=== PATIENT | female | born 2000 | race Caucasian/White ===

== ENCOUNTER 2022-09-25 10:11 | Emergency (ER) | payer OTHER, SELFPAY ==
--- NOTE | ~2022-09-25 | XR_ITS ---
EXAMINATION: XR chest 2V DATE: 09/25/2022 10:46 INDICATION: Anterior chest pain TECHNIQUE: PA and lateral views of the chest were obtained. COMPARISON: Chest radiograph dated 09/02/2022 FINDINGS: The lungs remain clear with no focal airspace opacities, pulmonary edema, pleural effusion or pneumot horax. The cardiomediastinal silhouette is normal. Mild thoracic spondylosis with mild anterior wedgi ng of a midthoracic vertebral body. IMPRESSION: 1. No acute cardiopulmonary disease. Reviewed, dictated and finalized at location A. [employer]
--- NOTE | 2022-09-25 10:22 | ECG_ITS ---
Measurements Intervals [place] Rate: 56 P: 46 DE: 137 QRS: 49 QRSD: 85 T: 21 QT: 386 QTc: 376 Interpretive Statements SINUS BRADYCARDIA WITH SINUS ARRHYTHMIA WITHIN NORMAL LIMITS NO PREVIOUS ECG AVAILABLE FOR COMPARISON Electronically Signed On 09-25-2022 15:30:03 RUBY SOFTWARE DEVELOPER by Mahesh Bhatia M.D.
[2022-09-25 10:25] VITALS: BP 128/79; PULSE 57; RESP 16; TEMP 36.4; O2SAT 100
[2022-09-25 10:27] VITALS: PULSE 64
[2022-09-25 11:48] VITALS: O2SAT 99
[2022-09-25 11:49] VITALS: BP 144/63; PULSE 61; RESP 19; O2SAT 100
[2022-09-25 12:00] LABS: Basophils Absolute Auto 0.1 K/mm3 (0.0-0.1); Basophils Percent Auto 0.5 % (0.2-1.2); Eosinophils Absolute Auto 0.5 K/mm3 (0-0.3); Eosinophils Percent Auto 4.1 % (0-4.4); Hematocrit 44.6 % (37.0-47.0); Hemoglobin 14.6 g/dL (12.0-15.0); Immature Granulocyte Absolute 0.05 K/mm3 (0.00-0.031); Immature Granulocyte Percent A 0.4 % (0-0.5); Lymphocytes Absolute Auto 1.75 K/mm3 (0.9-3.2); Lymphocytes Percent Auto 13.1 % (18.3-44.2); Mean Corpuscular HGB Conc 32.7 g/dl (32-36); Mean Corpuscular Volume 85.4 fl (80-100); Mean Platelet Volume 9.4 fl (7.4-10.4); Monocytes Absolute Auto 0.7 K/mm3 (0.1-0.6); Neutrophils Absolute Auto 10.3 K/mm3 (1.3-6.7); Neutrophils Percent Auto 76.9 % (45.5-73.1); Platelet Count Result 354 k/mm3 (150-375); Red Blood Count 5.22 M/mm3 (4.2-5.4); White Blood Count 13.3 K/mm3 (4.5-10.0)
[2022-09-25 12:11] LABS: Partial Thromboplastin Time 29.2 SECONDS (22.3-36.8); Prothrombin Time 12.3 Seconds (11.1-14.7)
[2022-09-25 12:25] LABS: Alanine Aminotransferase 26 U/L (6-35); Albumin Level 4.5 g/dL (3.5-5.1); Alkaline Phosphatase 97 U/L (38-126); Anion Gap 5 mmol/L (8-16); Aspartate Amino Transferase 25 U/L (14-36); Bilirubin,Total 0.6 mg/dL (0.2-1.3); Blood Urea Nitrogen 14 mg/dL (7-17); Calcium 9.4 mg/dL (8.4-10.2); Carbon Dioxide 30 mmol/L (22-30); Chloride 105 mmol/L (98-107); Estimated CRCL calculation 136 ml/min; Estimated Glomerular Filt Rate > 60; Glucose 99 mg/dL (65-110); Lipase 49 U/L (23-300); Sodium 140 mmol/L (137-145)
[2022-09-25 12:30] LABS: D Dimer 0.24 ug/mL (<0.48)
[2022-09-25 12:34] LABS: Troponin I < 0.012 ng/mL (0.000-0.034)
[2022-09-25 13:40] VITALS: PULSE 100; RESP 20; O2SAT 97
[2022-09-25 13:53] LABS: Troponin I < 0.012 ng/mL (0.000-0.034)
--- NOTE | 2022-09-25 14:08 | ED.GENADULT ---
HPI - General Adult General Chief complaint: Shortness of Breath/Dyspnea Stated complaint: cp/diff breathing Time Seen by Provider: 09/25/22 11:43 Source: patient Mode of arrival: ambulatory Limitations: no limitations History of Present Illness HPI narrative: Patient is a 22-year-old female who presents to the ED with report of chest tightness. Patient reports she woke up this morning with mild chest tightness. She states the tightness felt in her midsternal chest. States tightness was worse with pushing her arms together in front of her chest or behind her back, worse with other movement. 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 She reports she was mopping a floor upstairs and felt like the tightness was getting worse. She did feel slightly short of breath at that time. She was then referred to the ED for further evaluation. Patient denies any tightness or pain upon my evaluation. Patient denies any recent cough or cold symptoms, fevers, lower extremity pain or swelling, abdominal pain, nausea, vomiting, urinary symptoms. Related Data Allergies Allergy/AdvReac Type Severity Reaction Status Date / Time No Known Allergies Allergy Verified 09/25/22 11:47 Review of Systems Review of Systems: CONSTITUTIONAL: Denies fever, chills, or sweats. CARDIOVASCULAR: See HPI. RESPIRATORY: See HPI. GASTROINTESTINAL: Denies abdominal pain, nausea, vomiting GENITOURINARY: Denies dysuria or hematuria. All systems reviewed & are unremarkable except as noted in HPI and below PMFSH Past Medical History Medical History (Updated 09/25/22 @ 19:46 by La Ibrahim PA-C) No pertinent past medical history Surgical History Surgical History (Updated 09/25/22 @ 19:46 by La Ibrahim PA-C) No pertinent past surgical history Social History Social History (Updated 09/25/22 @ 19:46 by La Ibrahim PA-C) Smoking status: Never smoker Exam Narrative: GENERAL: Well appearing, morbidly obese, non-toxic, in no acute distress. HEAD: Normocephalic, atraumatic. NECK: Supple. No adenopathy, no masses. RESPIRATORY: Airway patent, respirations nonlabored. Clear to auscultation bilaterally, no rales, rhonchi, wheezing. CARDIOVASCULAR: Regular rate and rhythm without murmurs, rubs, or gallops. Peripheral pulses 2+ and equal bilaterally. ABDOMINAL: Soft, no appreciable tenderness, nondistended, no hepatosplenomegaly. Normoactive BS. MUSCULOSKELETAL: Moves all extremities. Strength/ROM intact without gross deformities. No significant chest wall tenderness to palpation. No edema. No calf tenderness. SKIN: Warm, dry, normal color. No rashes. NEURO: A&O X3. Speech clear. Cranial nerves II-XII grossly intact. Steady gait. No ataxic movements. PSYCHIATRIC: Appropriate mood and affect. Normal interaction. Course Vital Signs Vital signs: Vital Signs Temperature 97.6 F 09/25/22 10:25 Pulse Rate 57 L 09/25/22 10:25 Respiratory Rate 16 09/25/22 10:25 Blood Pressure 128/79 09/25/22 10:25 Pulse Oximetry 100 09/25/22 10:25 Oxygen Delivery Room Air 09/25/22 10:25 Temperature 97.6 F 09/25/22 10:25 Pulse Rate 72 09/25/22 14:20 Respiratory Rate 16 09/25/22 14:20 Blood Pressure 126/70 09/25/22 14:20 Pulse Oximetry 99 09/25/22 14:20 Oxygen Delivery Room Air 09/25/22 11:48 Medical Decision Making MDM Narrative Medical decision making narrative: Patient presented to ED with report of chest tightness. Patient's EKGs and labs are without significant high risk changes. EKG w/o acute ischemic changes. Troponin negative X2. Cardiac risk factors reviewed. HEART score = 1 d/t patient's BMI. Patient is felt likely low risk for ACS and reasonable for further risk stratification testing as an outpatient. Pain was not sudden or maximal in onset without tearing or ripping quality. No other signs or symptoms to suggest aortic dissection. A low-risk Wells criteria is noted, D-dimer WNL, PE is
[2022-09-25 14:20] VITALS: BP 126/70; PULSE 72; RESP 16; O2SAT 99
== END 2022-09-25 14:22 | disposition home or self-care (01) ==
PROVIDERS: Emergency Medicine; Emergency Provider Physician Assistant
DX: R07.89 Other chest pain (principal); R06.81 Apnea, not elsewhere classified; R00.1 Bradycardia, unspecified
CPT/HCPCS: 36415; 71046; 80053; 83690; 84484; 85025; 85380; 85610; 85730; 93005; 99284

== ENCOUNTER 2024-02-16 07:27 | Emergency (ER) | payer OTHER, SELFPAY ==
--- NOTE | ~2024-02-16 | CT_ITS ---
CT soft tissue neck w con Ordering provider: Sue Philip MD History: 23 years Female with . left neck swelling . Comparison: None. Technique: CT soft tissues neck was performed with contrast. . Automated exposure control and iterat erum reconstruction technique were employed. The dose-length product was 542.75 mGy-cm. 75 mL of Omnip aque 350 was given IV. Findings: LOWER HEAD: The visualized brain parenchyma, optic globes/orbits and mastoids are normal. Bilateral ethmoid sinus disease. Otherwise, The visualized paranasal sinuses are well aerated. SALIVARY GLANDS: Normal. THYROID: 1.1 cm nodule in the left lobe of the thyroid posteriorly 0.8 cm Small nodule in the right l obe of the thyroid SUPRAHYOID DEEP SPACES: A lymphadenopathy in the parapharyngeal spaces and posterior triangles with t he largest on the left side measures 2.9 x 2.1 cm. On the right side the largest measures 1.4 x 1.1 c m. CAROTID ARTERIES: Normal. JUGULAR VEINS: Normal. TONSILS: Normal. ORAL CAVITY: normal as visualized. PHARYNX, LARYNX AND TRACHEA: Patent and normal. No prevertebral soft tissue swelling. SUPERFICIAL SOFT TISSUES: Normal. No lymphadenopathy or neck mass. THORACIC INLET/VISUALIZED UPPER CHEST: Normal. SKELETAL: Bifid posterior arch of C1. Normal spine. IMPRESSION: 1. Bilateral lymphadenopathy with the largest lymph node seen in the left side. 2. Nodules in the thyroid gland. Ultrasound evaluation advised. Reviewed, dictated and finalized at location A. IMPRESSION: 1. Bilateral lymphadenopathy with the largest lymph node seen in the left side . 2. Nodules in the thyroid gland. Ultrasound evaluation advised.
--- NOTE | ~2024-02-16 | XR_ITS ---
Clinical Indication: Shortness of breath PA and lateral views of the chest: Comparison: 09/25/2022 Findings: The lungs are clear, without evidence of focal consolidation or pleural effusion. Cardiome diastinal silhouette is within normal limits. Bones and soft tissues are unremarkable. Impression: Normal chest. Reviewed, dictated and finalized at location . Impression: Normal chest.
[2024-02-16 07:52] VITALS: BP 137/88; PULSE 88; RESP 18; O2SAT 100
--- NOTE | 2024-02-16 07:52 | ED.SKABFB ---
HPI - Skin/Abscess/Foreign Bdy General Chief complaint: Skin/Abscess/Foreign Body Stated complaint: lump on neck Time Seen by Provider: 02/16/24 07:38 History of Present Illness HPI narrative: Patient is a 23-year-old female with history of PCOS here with left-sided neck swelling, cough, wheeze, nausea and vomiting. She states that symptoms began on Wednesday and seemed to begin with some left-sided neck swelling. She states she has had progressive worsening symptoms and now is experiencing some shortness of breath and a new wheeze which she has not experienced in the past. She has had a subjective fever and some increased fatigue. Today she was brushing her teeth and felt like it was making her gag. She does note some increased nasal congestion from her baseline of sinus issues. She has not had any sick contacts. She denies any chest pain. She has been able to tolerate secretions and does not feel like her throat is swollen. She denies any sore throat. She has taken ibuprofen at home for her symptoms, last dose was last night. Patient has irregular periods due to her history of PCOS, she has regular unprotected sex with 1 partner, no anti contraceptives used. Related Data Allergies Allergy/AdvReac Type Severity Reaction Status Date / Time No Known Allergies Allergy Verified 09/25/22 11:47 Review of Systems Review of Systems: All systems reviewed & are unremarkable except as noted in HPI and below PMFSH Past Medical History Medical History (Updated 02/16/24 @ 11:05 by Sue Philip MD) No pertinent past medical history Surgical History Surgical History (Updated 09/25/22 @ 19:46 by La Ibrahim PA-C) No pertinent past surgical history Social History Social History (Updated 09/25/22 @ 19:46 by La Ibrahim PA-C) Smoking status: Never smoker Exam Narrative: GENERAL: Well-appearing, well-nourished, and in no acute distress. HEAD: Normocephalic, atraumatic. EYES: PERRLA and EOMI. ENT: Nares clear. Mucous membranes moist. No pharyngeal erythema, swelling, uvula midline. Normal dentition, no broken teeth or tooth tenderness. No fullness underneath the tongue. NECK: Supple. Fullness over the left neck in the region of anterior chain lymph nodes, no right-sided lymphadenopathy, this is tender on exam. No overlying skin changes. CHEST: Bilateral wheeze present.. No respiratory distress. HEART: Regular rate and rhythm. Normal peripheral pulses. ABDOMEN: Soft, nontender, nondistended. EXTREMITIES: Normal range of motion. No edema. SKIN: Warm, dry, no rash. NEURO: No focal deficits. Alert and oriented x3. PSYCH: Normal mood and affect. Course Course Emergency Course: Chart review performed, patient here for a lump on the left side of her neck which started on Wednesday. Triage vitals grossly normal. Patient seen evaluated, nontoxic appearing. Multitude of symptoms most consistent with a acute viral illness. She does have a wheeze on exam, will do a chest x-ray as well as a trial of of DuoNeb. Given unilateral swelling without any significant or pharyngeal pathology will do CT soft tissue neck to ensure no deep space infection. Basic labs have been ordered. Will additionally do IV fluids and antiemetics. Tylenol ordered for pain. Patient agreeable to workup and plan. COVID and strep swabs already ordered in triage. Lab work and imaging reviewed, CBC unremarkable, electrolytes grossly within normal limits, COVID, influenza, RSV, strep negative. CT shows bilateral lymphadenopathy with the largest lymph node seen on the left side. Nodules in the thyroid gland, ultrasound evaluation is advised. The results of pertinent diagnostic studies and exam findings were discussed. The patient?s provisional diagnosis and plan of care were discussed with the patient and present family. The patient and/or present family expressed understanding of the diagnosis and plan. The nurse was instructe
[2024-02-16 08:56] VITALS: PULSE 91; RESP 20
[2024-02-16] MEDS: IPRATROPIUM 0.5 MG/ALBUTEROL SULFATE 2.5 MG AMPUL.NEB 3 ML INHALATION (08:56)
[2024-02-16 08:57] LABS: Strep Group A RT-PCR NOT DETECTED (Negative)
[2024-02-16 09:02] VITALS: PULSE 93; RESP 20
[2024-02-16] MEDS: ACETAMINOPHEN 500 MG TABLET 1000 MG PO (09:10)
[2024-02-16 09:11] LABS: Influenza A QL RT-PCR Negative (Negative); Influenza B QL RT-PCR Negative (Negative); RSV RNA, RT-PCR Negative (Negative); SARS-CoV-2 RNA PCR Negative (Negative)
[2024-02-16] MEDS: LACTATED RINGERS 1,000 ML 999 ML IV CONT (09:11)
[2024-02-16] MEDS: ONDANSETRON INJ 4 MG/2 ML VIAL IV PUSH (09:11)
[2024-02-16 09:21] LABS: Basophils Absolute Auto 0.1 K/mm3 (0.0-0.1); Basophils Percent Auto 0.9 % (0.2-1.2); Eosinophils Absolute Auto 0.1 K/mm3 (0-0.3); Eosinophils Percent Auto 1.3 % (0-4.4); Hematocrit 47.1 % (37.0-47.0); Hemoglobin 15.8 g/dL (12.0-15.0); Immature Granulocyte Absolute 0.01 K/mm3 (0.00-0.031); Immature Granulocyte Percent A 0.2 % (0-0.5); Lymphocytes Absolute Auto 2.05 K/mm3 (0.9-3.2); Lymphocytes Percent Auto 37.5 % (18.3-44.2); Mean Corpuscular HGB Conc 33.5 g/dl (32-36); Mean Corpuscular Hemoglobin 28.4 pg (26-34); Mean Corpuscular Volume 84.6 fl (80-100); Mean Platelet Volume 9.5 fl (7.4-10.4); Monocytes Absolute Auto 0.5 K/mm3 (0.1-0.6); Monocytes Percent Auto 9.5 % (2.6-8.5); Neutrophils Absolute Auto 2.8 K/mm3 (1.3-6.7); Neutrophils Percent Auto 50.6 % (45.5-73.1); Platelet Count Result 172 k/mm3 (150-375); Red Blood Count 5.57 M/mm3 (4.2-5.4); Red Cell Distribution Width 11.9 % (11.5-14.5); White Blood Count 5.5 K/mm3 (4.5-10.0)
[2024-02-16 09:36] LABS: Alanine Aminotransferase 33 U/L (6-35); Albumin Level 4.6 g/dL (3.5-5.1); Alkaline Phosphatase 114 U/L (38-126); Anion Gap 11 mmol/L (4-12); Aspartate Amino Transferase 36 U/L (14-36); Bilirubin,Total 1.1 mg/dL (0.2-1.3); Blood Urea Nitrogen 11 mg/dL (7-17); Calcium 9.3 mg/dL (8.4-10.2); Carbon Dioxide 28 mmol/L (22-30); Chloride 103 mmol/L (98-107); Estimated CRCL calculation 97 ml/min; Estimated Glomerular Filt Rate > 60; Glucose 111 mg/dL (65-110); Potassium 3.8 mmol/L (3.4-5.0); Sodium 142 mmol/L (137-145)
[2024-02-16 10:08] VITALS: BP 105/65; PULSE 74; RESP 16; O2SAT 98
[2024-02-16 11:08] VITALS: BP 132/96; PULSE 70; RESP 16; TEMP 36.8; O2SAT 99
== END 2024-02-16 11:20 | disposition home or self-care (01) ==
PROVIDERS: Emergency Provider Student in an Organized Health Care Education/Training Program
DX: R59.0 Localized enlarged lymph nodes (principal); B34.9 Viral infection, unspecified; J98.01 Acute bronchospasm; Z20.822 Contact with and (suspected) exposure to COVID-19
CPT/HCPCS: 36415; 70491; 71046; 80053; 81025; 85025; 87637; 87651; 94640; 96361; 96374; 99284; A9270; J2405; J7120; Q9967

== ENCOUNTER 2024-02-20 11:26 | Emergency (ER) | payer OTHER, SELFPAY ==
[2024-02-20 11:42] VITALS: BP 121/79; PULSE 85; RESP 18; TEMP 36.2; O2SAT 98
--- NOTE | 2024-02-20 13:18 | ED.GENADULT ---
HPI - General Adult General Chief complaint: Skin/Abscess/Foreign Body Stated complaint: rash from zofran ? Time Seen by Provider: 02/20/24 12:13 History of Present Illness HPI narrative: 23 years old white female came to the emergency room with vomiting and skin rash. Patient started on Zofran in the last couple days. Patient believed that high likely have allergy to Zofran. Patient is telling me that she have swelling lymph nodes of the neck bilaterally more on the inside started 5 days ago, came to our emergency room and tested negative for COVID RSV rhino virus and strep. Patient was discharged on Zofran for nausea and vomiting. Currently patient denies any fever or chills. She would like to change the Zofran to something else. Patient is telling me that her vomiting got worse compared to the 1st few days. Related Data Allergies Allergy/AdvReac Type Severity Reaction Status Date / Time ondansetron [From Zofran] AdvReac Rash Verified 02/20/24 13:52 Review of Systems Review of Systems: All systems reviewed & are unremarkable except as noted in HPI and below PMFSH Past Medical History Medical History No pertinent past medical history Surgical History Surgical History No pertinent past surgical history Social History Social History Smoking status: Never smoker Exam Narrative: General appearance: Well-developed, well-nourished Skin: Normal color Head: Normocephalic, nontraumatic Eyes: Clear conjunctiva ENT: Oropharyngeal erythema, normal sized tonsils Neck: Large tender lymph nodes submandibular bilaterally more on the left side Chest and respiratory: Airway patent, no respiratory distress, no accessory muscle use Heart: Regular rate/rhythm Abdomen: Soft, nontender, no organomegaly, quiet bowel sounds Vascular: Normal peripheral pulses, normal capillary refill. Musculoskeletal: Normal range of motion, nontender back Neurologic: Alert and oriented ?3, B[employer] INSPECTOR is normal as tested, no gross motor deficit Course Vital Signs Vital signs: Vital Signs Temperature 36.2 C L 02/20/24 11:42 Pulse Rate 85 02/20/24 11:42 Respiratory Rate 18 02/20/24 11:42 Blood Pressure 121/79 07/14/24 11:42 Pulse Oximetry 98 02/20/24 11:42 Temperature 36.6 C 02/20/24 16:17 Pulse Rate 76 02/20/24 16:17 Respiratory Rate 16 02/20/24 16:17 Blood Pressure 117/80 02/20/24 16:17 Pulse Oximetry 100 02/20/24 16:17 Medical Decision Making Differential Diagnosis Differential Diagnosis: PATIENT PRESENTS WITH SWOLLEN LYMPH NODES SUBMANDIBULAR REGION BILATERALLY MORE ON LEFT SIDE, CAME BACK TO THE EMERGENCY ROOM COMPLAINING OF POSSIBLE REACTION TO ZOFRAN, CAUSING RASH. PHYSICAL EXAMINATION IS CONSISTENT WITH LARGE TENDER LYMPH NODES SUBMANDIBULAR BILATERALLY MORE AT THE LEFT SIDE. BLOOD WORKUP TODAY CAME BACK POSITIVE FOR MONO. ELEVATED LIVER ENZYME. PATIENT WAS ADVISED TO TAKE IBUPROFEN 600 EVERY 6 HOURS, BED REST, PLENTY OF FLUID, AND TO NOT TAKING TYLENOL. FOLLOW UP WITH FAMILY PHYSICIAN IN 5 DAYS TO REPEAT LIVER ENZYMES. STOP ZOFRAN USE COMPAZINE SUPPOSITORY NEEDED Vital Signs Vital Signs: Vital Signs Temperature 36.2 C L 02/20/24 11:42 Pulse Rate 85 02/20/24 11:42 Respiratory Rate 18 02/20/24 11:42 Blood Pressure 121/79 02/20/24 11:42 Pulse Oximetry 98 02/20/24 11:42 Temperature 36.6 C 02/20/24 16:17 Pulse Rate 76 02/20/24 16:17 Respiratory Rate 16 02/20/24 16:17 Blood Pressure 117/80 02/20/24 16:17 Pulse Oximetry
[2024-02-20 13:48] LABS: Basophils Absolute Auto 0.1 K/mm3 (0.0-0.1); Basophils Percent Auto 1.4 % (0.2-1.2); Eosinophils Absolute Auto 0.1 K/mm3 (0-0.3); Eosinophils Percent Auto 0.8 % (0-4.4); Hematocrit 47.1 % (37.0-47.0); Hemoglobin 15.8 g/dL (12.0-15.0); Immature Granulocyte Absolute 0.03 K/mm3 (0.00-0.031); Immature Granulocyte Percent A 0.4 % (0-0.5); Lymphocytes Absolute Auto 5.13 K/mm3 (0.9-3.2); Lymphocytes Percent Auto 64.9 % (18.3-44.2); Mean Corpuscular HGB Conc 33.5 g/dl (32-36); Mean Corpuscular Hemoglobin 28.3 pg (26-34); Mean Corpuscular Volume 84.3 fl (80-100); Mean Platelet Volume 10.1 fl (7.4-10.4); Monocytes Absolute Auto 0.5 K/mm3 (0.1-0.6); Monocytes Percent Auto 6.6 % (2.6-8.5); Neutrophils Absolute Auto 2.1 K/mm3 (1.3-6.7); Neutrophils Percent Auto 25.9 % (45.5-73.1); Platelet Count Result 179 k/mm3 (150-375); Red Blood Count 5.59 M/mm3 (4.2-5.4); Red Cell Distribution Width 12.1 % (11.5-14.5); White Blood Count 7.9 K/mm3 (4.5-10.0)
[2024-02-20 13:51] LABS: Appearance Urine Clear (Clear); Bacteria Urine None Seen /hpf; Bilirubin Urine Negative (Negative); Blood Urine Negative (Negative); Color Urine Yellow (Yellow); Glucose Urine UA Negative (Negative); Ketones Urine Trace mg/dL (Negative); Leukocyte Esterase Ur Negative LEU/UL (Negative); Nitrate Urine Negative (Negative); Non Pathogenic Casts 0-2; Protein Urine Trace mg/dL (Negative); RBC Urine 0-2 /hpf (0-2); Squamous Epithelial Cell Urine None Seen /hpf (Few); WBC Urine 0-5 /hpf (0-3)
[2024-02-20] MEDS: SODIUM CHLORIDE 0.9% IV 1,000 ML 999 ML IV CONT (13:51)
[2024-02-20] MEDS: PROCHLORPERAZINE EDISYLATE 10 MG/2 ML VIAL IV PUSH (13:51)
[2024-02-20] MEDS: diphenhydrAMINE HCl INJ 50 MG/ML VIAL IV PUSH (13:52)
[2024-02-20 13:58] LABS: Alanine Aminotransferase 282 U/L (6-35); Albumin Level 4.7 g/dL (3.5-5.1); Alkaline Phosphatase 144 U/L (38-126); Anion Gap 9 mmol/L (4-12); Aspartate Amino Transferase 228 U/L (14-36); Atypical Lymphocytes Present; Blood Urea Nitrogen 11 mg/dL (7-17); Calcium 9.3 mg/dL (8.4-10.2); Carbon Dioxide 34 mmol/L (22-30); Chloride 98 mmol/L (98-107); Estimated Glomerular Filt Rate > 60; Glucose 92 mg/dL (65-110); Lipase 49 U/L (23-300); Platelet Estimate Adequate (Adequate); Potassium 4.1 mmol/L (3.4-5.0); Schistocytes None Seen; Sodium 141 mmol/L (137-145)
[2024-02-20 14:03] LABS: Add Urine Microscopic? YES
[2024-02-20] MEDS: Please add drug allergy info to patient profile. 1 EACH XX (14:09)
[2024-02-20 14:23] LABS: Monoscreen Positive (Negative); Negative Monotest Control Negative (Negative); Positive Monotest Control Positive (Positive)
[2024-02-20 16:17] VITALS: BP 117/80; PULSE 76; RESP 16; TEMP 36.6; O2SAT 100
== END 2024-02-20 16:18 | disposition home or self-care (01) ==
PROVIDERS: Emergency Provider Emergency Medicine
DX: B27.90 Infectious mononucleosis, unspecified without complication (principal); Z86.16 Personal history of COVID-19; Z79.899 Other long term (current) drug therapy
CPT/HCPCS: 36415; 80053; 81001; 81025; 83690; 85025; 86308; 96361; 96374; 96375; 99284; J0780; J1200; J7030

== ENCOUNTER 2024-02-24 02:29 | Emergency (ER) | payer OTHER, SELFPAY ==
[2024-02-24 02:34] VITALS: BP 131/79; PULSE 86; RESP 16; TEMP 36.6; O2SAT 99
[2024-02-24 02:39] VITALS: O2SAT 99
[2024-02-24 03:02] VITALS: BP 128/85; PULSE 75; RESP 15; O2SAT 99
[2024-02-24 03:06] LABS: Strep Group A RT-PCR NOT DETECTED (Negative)
[2024-02-24 03:17] LABS: Influenza A QL RT-PCR Negative (Negative); Influenza B QL RT-PCR Negative (Negative); RSV RNA, RT-PCR Negative (Negative); SARS-CoV-2 RNA PCR Negative (Negative)
[2024-02-24] MEDS: SODIUM CHLORIDE 0.9% IV 1,000 ML 999 ML IV CONT (03:17)
[2024-02-24] MEDS: KETOROLAC 15 MG/ML VIAL (*BKC) IV PUSH (03:17)
[2024-02-24] MEDS: dexAMETHasone SOD PHOS INJ 10 MG/ML 1 ML VIAL IV PUSH (03:17)
--- NOTE | 2024-02-24 03:25 | ED.GENADULT ---
HPI - General Adult General Chief complaint: Upper Respiratory Infection Stated complaint: sore throat Time Seen by Provider: 02/24/24 03:00 History of Present Illness HPI narrative: Patient from 3-year-old female who presents emergency department with chief complaint of sore throat. Patient reports he was diagnosed with mono about a week ago reports that she has been taking ibuprofen and reports that she still having pain with swallowing the patient reports he just does not feel well Related Data Allergies Allergy/AdvReac Type Severity Reaction Status Date / Time ondansetron [From Zofran] AdvReac Rash Verified 02/20/24 13:52 Review of Systems Review of Systems: A 10 system review of systems was completed on the patient and is negative except for what is stated in the HPI. Nursing and ancillary documentation was reviewed. PMFSH Past Medical History Medical History No pertinent past medical history Surgical History Surgical History No pertinent past surgical history Social History Social History Smoking status: Never smoker Exam Narrative: GENERAL: Well-appearing, well-nourished, and in no acute distress. HEAD: Normocephalic, atraumatic. EYES: PERRLA and EOMI. ENT: Nares clear, no rhinorrhea or epistaxis. Mucous membranes moist. There is exudate present on the tonsils NECK: Supple. CHEST: Clear to auscultation. No respiratory distress. HEART: Regular rate and rhythm. No murmur heard. Normal peripheral pulses. ABDOMEN: Soft, nontender, nondistended, normal active bowel sounds. EXTREMITIES: Normal range of motion. No edema. SKIN: Warm, dry, no rash. NEURO: No focal deficits. Alert and oriented x3. PSYCH: Normal mood and affect. Course Vital Signs Vital signs: Vital Signs Temperature 36.6 C 02/24/24 02:34 Pulse Rate 86 02/24/24 02:34 Respiratory Rate 16 02/24/24 02:34 Blood Pressure 131/79 02/24/24 02:34 Pulse Oximetry 99 02/24/24 02:34 Oxygen Delivery Room Air 02/24/24 02:34 Temperature 36.6 C 02/24/24 02:34 Pulse Rate 75 02/24/24 03:02 Respiratory Rate 15 02/24/24 03:02 Blood Pressure 128/85 02/24/24 03:02 Pulse Oximetry 99 02/24/24 03:02 Oxygen Delivery Room Air 02/24/24 02:39 Medical Decision Making MDM Narrative Medical decision making narrative: Differential diagnosis includes strep pharyngitis, COVID, dehydration, UTI The patient strep was negative COVID flu and RSV were negative urinalysis showed evidence of UTI electrolytes and CBC were within normal limits Patient had IV fluids Decadron and Toradol review better Patient will be started on Augmentin for the UTI and will also be started on steroids. Vital Signs Vital Signs: Vital Signs Temperature 36.6 C 02/24/24 02:34 Pulse Rate 86 02/24/24 02:34 Respiratory Rate 16 02/24/24 02:34 Blood Pressure 131/79 02/24/24 02:34 Pulse Oximetry 99 02/24/24 02:34 Oxygen Delivery Room Air 02/24/24 02:34 Temperature 36.6 C 02/24/24 02:34 Pulse Rate 75 02/24/24 03:02 Respiratory Rate 15 02/24/24 03:02 Blood Pressure 128/85 02/24/24 03:02 Pulse Oximetry 99 02/24/24 03:02 Oxygen Delivery Room Air 02/24/24 02:39 Lab Data 02/24/24 03:20 02/24/24 03:20 Labs: Lab Results 02/24/24 02/24/24 Range/Units 02:37 03:20 WBC 7.6 (4.5-10.0) K/mm3 RBC 5.37 (4.2-5.4) M/mm3 Hgb 15.0 (12.0-15.0) g/dL Hct 45.4 (37.0-47.0) % MCV 84.5 (80-100) fl MCH 27.9 (26-34) pg MCHC 33.0 (32-36) g/dl RDW 12.3 (11.5-14.5) % Plt Count 255 (150-375) k/mm3 MPV 9.6 (7.4-10.4) fl Immature Gran % (Auto) 0.1 (0-0.5) % Neut % (Auto) 42.3 L (45.5-73.1) % Lymph % (Auto) 46.0 H (18.3-44.2) % [place] % (Auto
[2024-02-24 03:34] LABS: Basophils Absolute Auto 0.1 K/mm3 (0.0-0.1); Basophils Percent Auto 0.8 % (0.2-1.2); Eosinophils Absolute Auto 0.1 K/mm3 (0-0.3); Eosinophils Percent Auto 1.6 % (0-4.4); Hematocrit 45.4 % (37.0-47.0); Immature Granulocyte Absolute 0.01 K/mm3 (0.00-0.031); Immature Granulocyte Percent A 0.1 % (0-0.5); Lymphocytes Absolute Auto 3.51 K/mm3 (0.9-3.2); Mean Corpuscular Hemoglobin 27.9 pg (26-34); Mean Corpuscular Volume 84.5 fl (80-100); Mean Platelet Volume 9.6 fl (7.4-10.4); Monocytes Absolute Auto 0.7 K/mm3 (0.1-0.6); Monocytes Percent Auto 9.2 % (2.6-8.5); Neutrophils Absolute Auto 3.2 K/mm3 (1.3-6.7); Neutrophils Percent Auto 42.3 % (45.5-73.1); Platelet Count Result 255 k/mm3 (150-375); Red Blood Count 5.37 M/mm3 (4.2-5.4); Red Cell Distribution Width 12.3 % (11.5-14.5); White Blood Count 7.6 K/mm3 (4.5-10.0)
[2024-02-24 03:48] LABS: Appearance Urine Cloudy (Clear); Bacteria Urine 3+ /hpf; Bilirubin Urine Negative (Negative); Blood Urine Negative (Negative); Color Urine Yellow (Yellow); Glucose Urine UA Negative (Negative); Ketones Urine Negative (Negative); Leukocyte Esterase Ur Negative LEU/UL (Negative); Need Manual Microscopic Reviewed; Nitrate Urine Negative (Negative); Non Pathogenic Casts 0-2; Protein Urine Negative (Negative); Specific Grav Ur 1.017 (1.001-1.035); Squamous Epithelial Cell Urine Moderate /hpf (Few)
[2024-02-24 03:50] LABS: Platelet Estimate Adequate (Adequate)
[2024-02-24 03:51] LABS: Alanine Aminotransferase 307 U/L (6-35); Albumin Level 4.5 g/dL (3.5-5.1); Alkaline Phosphatase 125 U/L (38-126); Anion Gap 10 mmol/L (4-12); Aspartate Amino Transferase 172 U/L (14-36); Atypical Lymphocytes Present; Bilirubin,Total 0.9 mg/dL (0.2-1.3); Blood Urea Nitrogen 14 mg/dL (7-17); Carbon Dioxide 31 mmol/L (22-30); Chloride 99 mmol/L (98-107); Estimated CRCL calculation 94 ml/min; Estimated Glomerular Filt Rate > 60; Glucose 98 mg/dL (65-110); Potassium 4.2 mmol/L (3.4-5.0); Schistocytes None Seen; Sodium 140 mmol/L (137-145)
[2024-02-24 03:53] LABS: Add Urine Microscopic? YES
== END 2024-02-24 04:32 | disposition home or self-care (01) ==
PROVIDERS: Emergency Provider Emergency Medicine; PCP Emergency Medicine
DX: B27.90 Infectious mononucleosis, unspecified without complication (principal); N39.0 Urinary tract infection, site not specified; Z20.822 Contact with and (suspected) exposure to COVID-19
CPT/HCPCS: 36415; 80053; 81001; 81025; 85025; 87086; 87088; 87637; 87651; 96361; 96374; 96375; 99283; J1100; J1885; J7030

== ENCOUNTER 2024-04-14 16:28 | Inpatient (IN) | payer OTHER, SELFPAY ==
[2024-04-14] VITALS (14 sets, daily range): BP systolic 110–158; BP diastolic 67–111; PULSE 84–113; RESP 18–28; TEMP 36.4–36.6; O2SAT 90–99
--- NOTE | ~2024-04-14 | CT_ITS ---
EXAMINATION: CTA chest PE protocol DATE: 04/15/2024 08:57 INDICATION: Hypoxia. Tachycardia. TECHNIQUE: Computed tomography angiography (CTA) of the chest was performed with 100 mL Omnipaque-350 intravenous contrast timed to evaluate the pulmonary arteries. Coronal maximum intensity projection 3D-reconstructions were created by the technologist. Automated exposure control and iterative reconst ruction technique were employed. The dose-length product was 745.27 mGy-cm. COMPARISON: Chest CT 04/14/2024 FINDINGS: There are scattered groundglass opacities in the lungs, worst in right lower lobe. There is a 4 mm nodule in right middle lobe, likely benign. There are small pleural effusions. The heart size is normal. No pericardial effusion. There is no pulmonary embolus. There is mild thoracic spondylosi s. There is mild chronic anterior wedging of multiple vertebral bodies. IMPRESSION: 1. No pulmonary embolus. 2. Stable mild diffuse lung disease, likely atypical pneumonia. 3. New small pleural effusions. Reviewed, dictated and finalized at location A.
--- NOTE | ~2024-04-14 | XR_ITS ---
EXAMINATION: XR chest 2V DATE: 04/14/2024 18:12 INDICATION: Fever, shortness of breath, cough. TECHNIQUE: Frontal and lateral views of the chest were obtained. COMPARISON: Chest 2 views 02/16/2024 FINDINGS: There are airspace opacities in the lower lung zones. No pleural effusion or pneumothorax. The heart size is normal. IMPRESSION: 1. Airspace opacities in the lower lung zones, consistent with atelectasis versus pneumonia. Reviewed, dictated and finalized at location A. IMPRESSION: 1. Airspace opacities in the lower lung zones, consistent with atelectasis vers us pneumonia.
--- NOTE | ~2024-04-14 | CT_ITS ---
EXAMINATION: CT chest abdomen w con DATE: 04/14/2024 22:09 INDICATION: Chest pain. TECHNIQUE: Computed tomography (CT) of the chest and abdomen was performed with 100 mL Omnipaque 350 intravenous contrast. Automated exposure control and iterative reconstruction technique were employed . The dose-length product was 1427.08 mGy-cm. COMPARISON: None FINDINGS: CHEST CT: There are scattered groundglass opacities in all lobes. No pleural effusion. The heart size is normal . No pericardial effusion. There is mild thoracic spondylosis. ABDOMEN CT: The liver, gallbladder, spleen, pancreas, adrenal glands, and kidneys are normal. There are no dilate d loops of bowel. There is no pathologically enlarged lymph nodes. There is no ascites. The bones are unremarkable. IMPRESSION: 1. Mild diffuse lung disease, likely atypical pneumonia. Reviewed, dictated and finalized at location A.
--- NOTE | 2024-04-14 17:24 | ED.SOB ---
HPI - SOB/Dyspnea General Chief Complaint: Shortness of Breath/Dyspnea <Mecca Mcnair PA-C - Last Filed: 04/15/24 14:49> Stated Complaint: Shortness of Breath <Mecca Mcnair PA-C - Last Filed: 04/15/24 14:49> Time Seen by Provider: 04/14/24 17:25 <Mecca Mcnair PA-C - Last Filed: 04/15/24 14:49> Focused HPI: this is a 24-year-old female that presents to the emergency department for shortness of breath. Ongoing since yesterday. Associated with fevers and cough. Reports her boyfriend was recently sick with a similar illness. GENERAL: Well-appearing, well-nourished, and in no acute distress. HEAD: Normocephalic, atraumatic. CHEST: No respiratory distress. Diffuse wheezing HEART: Regular rate and rhythm.? NEURO: ?Alert and oriented x3. Patient screened in triage and initial orders placed.? ?Additional care and disposition to be based upon?diagnostic testing and treatment. <Mecca Mcnair PA-C - Last Filed: 04/15/24 14:49> Source: patient <Mecca Mcnair PA-C - Last Filed: 04/15/24 14:49> Mode of arrival: ambulatory <Mecca Mcnair PA-C - Last Filed: 04/15/24 14:49> Limitations: no limitations <Mecca Mcnair PA-C - Last Filed: 04/15/24 14:49> History of Present Illness HPI Narrative: 24-year-old female presenting with shortness of breath. <Karla Angel MD - Last Filed: 04/15/24 04:56> Related Data Home Medications: Home Medications Medication Instructions Recorded Confirmed Vitamin D3 50,000 units PO WEEKLY 04/15/24 04/15/24 famotidine 20 mg PO DAILY 04/15/24 04/15/24 <Mecca Mcnair PA-C - Last Filed: 04/15/24 14:49> Allergies/Adverse Reactions: Allergies Allergy/AdvReac Type Severity Reaction Status Date / Time ondansetron [From Zofran] AdvReac Rash Verified 04/15/24 04:06 <Mecca Mcnair PA-C - Last Filed: 04/15/24 14:49> Review of Systems Review of Systems: All systems reviewed & are unremarkable except as noted in HPI and below <Anh Garnett APRN - Last Filed: 04/15/24 01:24> PMFSH Past Medical History Medical History: Medical History No pertinent past medical history <Mecca Mcnair PA-C - Last Filed: 04/15/24 14:49> Surgical History Surgical History: Surgical History No pertinent past surgical history <Mecca Mcnair PA-C - Last Filed: 04/15/24 14:49> Family History Family History: Family History (Updated 04/15/24 @ 04:01 by Nellie Santamaria RN) Grandparent Breast cancer Diabetes mellitus Father Diabetes mellitus Mother Kidney disease <Mecca Mcnair PA-C - Last Filed: 04/15/24 14:49> Social History Social History: Social History Smoking status: Current every day smoker Tobacco type: e-cigarettes/vaping Alcohol intake: never Substance use: current Substance use type: marijuana Last use: 04/14/2024 Do You Feel Safe in your Home?: Yes Lack of Transportation: No Lack of Food: Never True Current Housing: I Have Housing Concerned About Future Housing: No Difficulty Paying Gas/Electric Bills: No Difficulty Paying for Meds: No Currently Unemployed: No Education: Grade School Difficulty w/ Childcare or Family Care: No Spiritual care concerns: No <ANDER Castillo Last Filed: 04/15/24 14:49> Exam Narrative: GENERAL: Well appearing, well-nourished, non-toxic, in no acute distress. NECK: Supple. No adenopathy, no masses. RESPIRATORY: Airway patent, respirations nonlabored. Increased work of breathing with activity. Pt has wheezing in her upper lobes and coarses bilateral lower breath sounds. CARDIOVASCULAR: Tachycardic, regular rhythm without murmurs, rubs, or gallops. Peripheral pulses 2+ and equal bilaterally. ABDOMINAL: Soft, nontender, nondistend
[2024-04-14] MEDS: IPRATROPIUM 0.5 MG/ALBUTEROL SULFATE 2.5 MG AMPUL.NEB 3 ML INHALATION ×2 (17:39→21:46)
[2024-04-14] MEDS: predniSONE 20 MG TABLET 60 MG PO (17:46)
--- NOTE | 2024-04-14 19:21 | ECG_ITS ---
Test Date: 2024-04-14 19:47:54 Measurements Intervals [place] Rate: 98 P: 64 DE: 146 QRS: 48 QRSD: 85 T: 42 QT: 346 QTc: 444 Interpretive Statements SINUS RHYTHM BASELINE WANDER- V4-V6 NORMAL ECG No previous ECG available for comparison Electronically Signed On 04-15-2024 06:32:57 CDT by Antoine Gaitan D.O.
[2024-04-14] MEDS: SODIUM CHLORIDE 0.9% IV 1,000 ML 999 ML IV CONT ×2 (20:05→23:07)
[2024-04-14 20:13] LABS: Basophils Absolute Auto 0.1 K/mm3 (0.0-0.1); Basophils Percent Auto 0.4 % (0.2-1.2); Eosinophils Absolute Auto 0.3 K/mm3 (0-0.3); Eosinophils Percent Auto 1.7 % (0-4.4); Hematocrit 41.2 % (37.0-47.0); Immature Granulocyte Absolute 0.06 K/mm3 (0.00-0.031); Immature Granulocyte Percent A 0.4 % (0-0.5); Lymphocytes Absolute Auto 0.88 K/mm3 (0.9-3.2); Lymphocytes Percent Auto 5.7 % (18.3-44.2); Mean Corpuscular Hemoglobin 28.6 pg (26-34); Mean Corpuscular Volume 84.3 fl (80-100); Mean Platelet Volume 9.1 fl (7.4-10.4); Monocytes Absolute Auto 0.5 K/mm3 (0.1-0.6); Monocytes Percent Auto 3.5 % (2.6-8.5); Neutrophils Absolute Auto 13.6 K/mm3 (1.3-6.7); Neutrophils Percent Auto 88.3 % (45.5-73.1); Platelet Count Result 297 k/mm3 (150-375); Red Blood Count 4.89 M/mm3 (4.2-5.4); Red Cell Distribution Width 12.7 % (11.5-14.5); White Blood Count 15.4 K/mm3 (4.5-10.0)
[2024-04-14 20:22] LABS: Prothrombin Time 13.7 Seconds (11.1-14.7)
[2024-04-14 20:23] LABS: Partial Thromboplastin Time 30.6 Seconds (22.3-36.8)
[2024-04-14 20:29] LABS: Anion Gap 12 mmol/L (4-12); Blood Urea Nitrogen 13 mg/dL (7-17); Calcium 9.4 mg/dL (8.4-10.2); Carbon Dioxide 29 mmol/L (22-30); Chloride 97 mmol/L (98-107); D Dimer 0.34 ug/mL (<0.48); Estimated CRCL calculation 119 ml/min; Estimated Glomerular Filt Rate > 60; Glucose 112 mg/dL (65-110); Magnesium 2.3 mg/dL (1.6-2.3); Potassium 3.8 mmol/L (3.4-5.0); Sodium 138 mmol/L (137-145)
[2024-04-14 20:31] LABS: Influenza A QL RT-PCR Negative (Negative); Influenza B QL RT-PCR Negative (Negative); RSV RNA, RT-PCR Negative (Negative); SARS-CoV-2 RNA PCR Negative (Negative)
[2024-04-14 20:41] LABS: Troponin I < 0.012 ng/mL (0.000-0.034)
[2024-04-14 21:48] LABS: BEDSIDEPREGUCG Negative (Negative)
[2024-04-14 21:54] LABS: Add Urine Microscopic? YES; Appearance Urine Cloudy (Clear); Bacteria Urine 2+ /hpf; Bilirubin Urine Negative (Negative); Blood Urine 1+ (Negative); Color Urine Yellow (Yellow); Glucose Urine UA Negative (Negative); Ketones Urine Trace mg/dL (Negative); Leukocyte Esterase Ur Negative LEU/UL (Negative); Nitrate Urine Negative (Negative); Non Pathogenic Casts 0-2; Protein Urine Negative (Negative); Specific Grav Ur 1.017 (1.001-1.035); Squamous Epithelial Cell Urine Few /hpf (Few); WBC Urine 0-5 /hpf (0-3); pH Urine 7.5 (5.0-9.0)
[2024-04-14] MEDS: DOXYCYCLINE 100 MG/NS 100 ML 100 MG/100 ML BAG IVPB (23:07)
--- NOTE | 2024-04-14 23:11 | PC.NURSE ---
report given to torrie foster at this time. pt resting comfortably in bed with call light within reach. pt ns and abx infusing in LAC.
[2024-04-14] MEDS: ALBUTEROL SULFATE NEB 2.5 MG/3 ML INH 10 MG INHALATION (23:32)
[2024-04-14] MEDS: IPRATROPIUM BR 0.02% INH SOLN 0.5 MG/2.5 ML VIAL INHALATION (23:33)
[2024-04-15] VITALS (36 sets, daily range): BP systolic 133–150; BP diastolic 67–82; PULSE 88–124; RESP 16–28; TEMP 36–36.6; O2SAT 80–100; BMI 43.0; BMI 42.5
[2024-04-15] MEDS: methylPREDNISolone SOD SUCC 125 MG VIAL IV PUSH (00:03)
--- NOTE | 2024-04-15 02:19 | PM.IMHP ---
H&P: HPI History of Present Illness Date/Time: 04/15/24 02:19 Chief Complaint: SOB Narrative: 24v year old lady with no chronic medical problems Pt recently diagnosed with mononucleosis and UTI was treated with Augmentin, did not feel better ongoing SOB cough and palpitations. Pt seen in ED pt had Cxr and CT chest and abdomen showing atypical pneumonia. Pt feels sob in ED cannot catch her breath and HR is up. pt has not been going to work few days because of feeing sick. Pt is a smoker. Review of Systems Review of Systems: Cough, sob, palpitations PMFSH Past Medical History Medical History No pertinent past medical history Surgical History Surgical History No pertinent past surgical history Social History Social History Smoking status: Never smoker Meds Home Medications and Allergies Home Medications Medication Instructions Recorded Confirmed Type albuterol sulfate 90 mcg/actuation 2 puff inhalation QID PRN 02/16/24 Rx aerosol inhaler shortness of breath or wheezing #6.7 grams ondansetron 4 mg disintegrating 4 mg PO Q8H PRN nausea and 02/16/24 Rx tablet vomiting #10 tabs prochlorperazine 25 mg rectal 25 mg RECTAL Q12H PRN nausea and 02/20/24 Rx suppository (Compazine) vomiting #12 ea amoxicillin 875 mg-potassium 1 tablet PO Q12H 10 days #20 tabs 02/24/24 Rx clavulanate 125 mg tablet prednisone 20 mg tablet 40 mg PO DAILY 5 days #10 tabs 02/24/24 Rx Allergies Allergy/AdvReac Type Severity Reaction Status Date / Time ondansetron [From Zofran] AdvReac Rash Verified 04/14/24 19:38 Vital Signs Vital Signs - 24 hr 04/14/24 17:21 04/14/24 17:42 04/14/24 17:46 Temperature 36.6 C Pulse Rate 84 101 H Respiratory Rate 18 22 H Blood Pressure 129/73 Pulse Oximetry 99 95 Oxygen Delivery Room Air Room Air 04/14/24 17:50 04/14/24 19:35 04/14/24 19:37 Temperature Pulse Rate 112 H 100 Respiratory Rate 22 H 22 H Blood Pressure 136/84 Pulse Oximetry 93 Oxygen Delivery Room Air Room Air 04/14/24 19:49 04/14/24 21:49 04/14/24 21:55 Temperature Pulse Rate 98 106 H 103 H Respiratory Rate 20 18 Blood Pressure Pulse Oximetry Oxygen Delivery 04/14/24 23:06 04/14/24 23:33 04/15/24 01:08 Temperature 36.4 C L Pulse Rate 101 H 113 H 115 H Respiratory Rate 20 26 H 22 H Blood Pressure 110/79 Pulse Oximetry 92 Oxygen Delivery Exam Const: General: in distress and other (pt sitting up coughing feels SOB ) Nutritional Appearance: overweight Orientation/consciousness: oriented to person HENMT: Head: normal to inspection Resp: Effort & Inspection: no respiratory distress Auscultation: no rhonchi and no wheezes Cardio: Rate: regular rate Rhythm: regular rhythm GI: Inspection: normal to inspection GI Palp: No abdominal tenderness, No Guarding due to palpation present (GI) and No Hepatomegaly present Auscultation: normal bowel sounds Neuro: General: oriented to person H&P: Results Labs Labs: Short CBC 04/14/24 Range/Units 20:03 WBC 15.4 H (4.5-10.0) K/mm3 Hgb 14.0 (12.0-15.0) g/dL Hct 41.2 (37.0-47.0) % Plt Count 297 (150-375) k/mm3 BMP 04/14/24 20:03 Sodium 138 Potassium 3.8 Chloride 97 L Carbon Dioxide 29 BUN 13 Creatinine 0.80 Glucose 112 H Calcium 9.4 Cardiac Enzymes 04/14/24 04/14/24 Range/Units 20:03 20:03 Troponin I < 0.012 Cancelled (0.000-0.034) ng/mL Urine 04/14/24 Range/Units 21:44 Urine Color Yellow (Yellow) Urine Appearance Cloudy H (Clear) Urine pH 7.5 (5.0-9.0) Ur Specific [place] 1.017 (1.001-1.035) Urine Protein Negative (Negative) mg/dL Urine Glucose (UA) Negative (Negative) mg/dL Assessment and Plan Assessment and plan (1) A
[2024-04-15] MEDS: ALBUTEROL SULFATE NEB 2.5 MG/3 ML INH 5 MG INHALATION (02:59)
[2024-04-15] MEDS: IPRATROPIUM BR 0.02% INH SOLN 0.5 MG/2.5 ML VIAL INHALATION (03:00)
--- NOTE | 2024-04-15 03:58 | ADMGEN ---
This patient, Rachel Neal, was admitted to 3 [facility] S[facility] Room 319-01. Patient/family oriented to hospital policies and general routines including ID bracelet, bed and alarms, visiting hours, pain management, procedures, bathroom and other care routines, personal items, smoking policy, room service/diet, and visiting hours. Information on how to activate the Rapid Response Team has been discussed. Patient/Family are encouraged to report perceived risks to care and to ask questions if they do not understand what they are told or what they should do.
[2024-04-15] MEDS: methylPREDNISolone SOD SUCC 40 MG VIAL IV PUSH ×3 (06:01→21:18)
[2024-04-15] MEDS: ALBUTEROL SULFATE NEB 2.5 MG/3 ML INH 1.25 MG INHALATION (06:01)
[2024-04-15 06:14] LABS: Alveolar/Arterial O2 Gradient 181.4 mmHg; Base Excess ABG -0.3 mEq/l (+/-2.0); Fractional Inspired Oxygen 40 %; HCO3 ABG 22.8 mEq/l (22.0-26.0); Oxygen Content ABG 18.3 %vol (16.0-22.0); Oxygen Saturation ABG 94.2 % (95.0-100.0); Oxyhemoglobin 93.2 % THb (90.0-100.0); PCO2 ABG 32.9 mmHg (35.0-45.0); PO2 FiO2 Ratio Arterial Blood 1.65 %; pH ABG 7.459 (7.350-7.450)
[2024-04-15 06:17] LABS: Device NASAL CANNULA; Modified Allen's Test Pass; Site Drawn RIGHT RADIAL
--- NOTE | 2024-04-15 06:55 | PM.IMPN ---
Progress Note: A&P Assessment and Plan (1) Sepsis: Code(s): A41.9 - Sepsis, unspecified organism Status: Acute Assessment and Plan: Meets SIRS criteria: leukocytosis, HR, RR with new O2 requirement - lactic acid: 1.4 on 04/15 - s/p 2 L NS bolus in the ED - suspected source: atypical pneumonia - blood cultures drawn on 04/14: pending - UA: cloudy appearance, trace ketones, 1+ blood, 6-10 RBC, 2+ bacteria. Nonconcerning for infection. No culture sent. - CXR: airspace opacities in the lower lung zones, consistent with atelectasis vs pneumonia - Chest/abdomen CT: milod diffuse lung disease, likely atypical pneumonia. - Chest CTA: No pulmonary embolus. Stable mild diffuse lung disease, likely atypical pneumonia. New small pleural effusions. (2) Acute hypoxic respiratory failure: Code(s): J96.01 - Acute respiratory failure with hypoxia Status: Acute Assessment and Plan: Patient requiring 9L high flow on admission, baseline room air. Hypoxia likely due to patients atypical pneumonia vs emphysema/copd vs PE. - Requiring 7 L high flow, baseline RA. Oxygen via NC; wean as tolerated. Keep SpO2 greater than 90% - Patient smokes an entire disposable vape every week and approximately 1 g of weed daily since she was 18 years old. Encouraged smoking cessation. Denies need for nicotine patch at this time. - RN called stating patient spO2 drops into the 80s while sleeping, upon waking will return to 100%. Will obtain an apnealink to evaluate for MARISABEL given patients weight and boyfriends report that she snores and wakes gasping for air. - CTA chest ordered to rule out PE given that patient has new O2 requirement and has been tachycardic. - Chest CTA: No pulmonary embolus. Stable mild diffuse lung disease, likely atypical pneumonia. New small pleural effusions. (3) Atypical pneumonia: Code(s): J18.9 - Pneumonia, unspecified organism Status: Acute Assessment and Plan: - CXR: airspace opacities in the lower lung zones, consistent with atelectasis vs pneumonia - Chest/abdomen CT: milod diffuse lung disease, likely atypical pneumonia. - ABG: pH 7.459, pCO2 32.9, pO2 66, HCO3 22.8 - Viral PCR: negative for Flu/COVID/RSV - Blood cultures collected on 04/14: pending - started on antibiotics on 04/14: doxy and rocephin - Requiring 9 L high flow, baseline RA. Oxygen via NC; wean as tolerated. Keep SpO2 greater than 90% - supportive treatment tyl prn nebs prn - Monitor vital signs, I&Os, neuro status and patient is a fall risk - Follow WBC, serum electrolytes, temperature curves and cultures Time Spent With Patient Time with patient: 25 - 35 minutes Subjective Date/time seen: 04/15/24 06:55 Interval history: 24 year old female with no past medical history reports to the hospital for shortness of breath, cough and palpitations. Patient is pleasant sitting up in her chair with her boyfriend at bedside. She states that it is okay to discuss plan of care with him present. Patient states that her shortness of breath has improved, but is still present and exacerbated with coughing. she remains on 7 L high-flow nasal cannula at this. Will continue to wean as tolerated. RN called stating that patient is dropping into the 80s on high flow while sleeping. RN notes that when patient is woken up she will immediately return to upper 90s. Patients boyfriend, with patients permission states that the patient does snore heavily and has been found to wake from sleep gasping for air. Will obtain an apnea link to further evaluate patient for MARISABEL. patient denies chest pain, palpitations, nausea/vomiting, abdominal pain and dizziness/ lightheadedness with ambulation throughout the room Review of Systems Review of Systems: All systems reviewed & are unremarkable except as noted in HPI and below Exam Narrative: AF HR 89 RR 20 SpO2 98 7 L NC General: female in no acute respiratory distress who is nontoxic appearing, sitting
[2024-04-15] MEDS: IPRATROPIUM 0.5 MG/ALBUTEROL SULFATE 2.5 MG AMPUL.NEB 3 ML INHALATION ×5 (07:03→23:45)
[2024-04-15 07:29] LABS: Basophils Percent Auto 0.1 % (0.2-1.2); Hematocrit 39.2 % (37.0-47.0); Hemoglobin 13.4 g/dL (12.0-15.0); Immature Granulocyte Absolute 0.03 K/mm3 (0.00-0.031); Immature Granulocyte Percent A 0.3 % (0-0.5); Lymphocytes Absolute Auto 0.52 K/mm3 (0.9-3.2); Lymphocytes Percent Auto 5.6 % (18.3-44.2); Mean Corpuscular HGB Conc 34.2 g/dl (32-36); Mean Corpuscular Hemoglobin 28.5 pg (26-34); Mean Corpuscular Volume 83.4 fl (80-100); Mean Platelet Volume 9.1 fl (7.4-10.4); Monocytes Absolute Auto 0.1 K/mm3 (0.1-0.6); Monocytes Percent Auto 0.7 % (2.6-8.5); Neutrophils Absolute Auto 8.7 K/mm3 (1.3-6.7); Neutrophils Percent Auto 93.3 % (45.5-73.1); Platelet Count Result 282 k/mm3 (150-375); Red Cell Distribution Width 12.4 % (11.5-14.5); White Blood Count 9.3 K/mm3 (4.5-10.0)
[2024-04-15 07:37] LABS: Alanine Aminotransferase 17 U/L (6-35); Albumin Level 4.5 g/dL (3.5-5.1); Alkaline Phosphatase 84 U/L (38-126); Anion Gap 13 mmol/L (4-12); Aspartate Amino Transferase 21 U/L (14-36); Bilirubin,Total 0.7 mg/dL (0.2-1.3); Blood Urea Nitrogen 9 mg/dL (7-17); Calcium 9.3 mg/dL (8.4-10.2); Carbon Dioxide 22 mmol/L (22-30); Chloride 104 mmol/L (98-107); Estimated CRCL calculation 181 ml/min; Estimated Glomerular Filt Rate > 60; Glucose 160 mg/dL (65-110); Potassium 3.7 mmol/L (3.4-5.0); Sodium 139 mmol/L (137-145)
[2024-04-15 07:38] LABS: Lactic Acid Reflex 1.4 mmol/L (0.7-2.0)
[2024-04-15] MEDS: BENZONATATE 100 MG CAPSULE 200 MG PO ×3 (09:17→16:17)
[2024-04-15] MEDS: ENOXAPARIN 40 MG/0.4 ML SYRINGE SUB-Q (09:18)
[2024-04-15] MEDS: DOXYCYCLINE HYCLATE 100 MG TABLET PO ×2 (09:18→21:14)
[2024-04-15 09:23] LABS: Procalcitonin 0.1 ng/mL
--- NOTE | 2024-04-15 20:15 | PCRCNOTE ---
Patient ordered for a apnea link [facility]. Unable to complete patient on high flow nasal cannula at 5 liters.
[2024-04-16] VITALS (21 sets, daily range): BP systolic 120–137; BP diastolic 68–82; PULSE 69–110; RESP 18–22; TEMP 36.3–36.6; O2SAT 92–98
[2024-04-16] MEDS: IPRATROPIUM 0.5 MG/ALBUTEROL SULFATE 2.5 MG AMPUL.NEB 3 ML INHALATION ×5 (04:24→20:40)
[2024-04-16] MEDS: methylPREDNISolone SOD SUCC 40 MG VIAL IV PUSH ×3 (05:54→21:32)
[2024-04-16 06:13] LABS: Basophils Percent Auto 0.1 % (0.2-1.2); Hematocrit 43.3 % (37.0-47.0); Hemoglobin 14.3 g/dL (12.0-15.0); Immature Granulocyte Absolute 0.12 K/mm3 (0.00-0.031); Immature Granulocyte Percent A 0.6 % (0-0.5); Lymphocytes Absolute Auto 0.76 K/mm3 (0.9-3.2); Lymphocytes Percent Auto 3.8 % (18.3-44.2); Mean Corpuscular Hemoglobin 28.3 pg (26-34); Mean Corpuscular Volume 85.7 fl (80-100); Mean Platelet Volume 9.3 fl (7.4-10.4); Monocytes Absolute Auto 0.5 K/mm3 (0.1-0.6); Monocytes Percent Auto 2.6 % (2.6-8.5); Neutrophils Absolute Auto 18.4 K/mm3 (1.3-6.7); Neutrophils Percent Auto 92.9 % (45.5-73.1); Platelet Count Result 370 k/mm3 (150-375); Red Blood Count 5.05 M/mm3 (4.2-5.4); Red Cell Distribution Width 12.8 % (11.5-14.5); White Blood Count 19.8 K/mm3 (4.5-10.0)
[2024-04-16 06:20] LABS: Alanine Aminotransferase 16 U/L (6-35); Albumin Level 4.5 g/dL (3.5-5.1); Alkaline Phosphatase 84 U/L (38-126); Anion Gap 10 mmol/L (4-12); Aspartate Amino Transferase 22 U/L (14-36); Bilirubin,Total 0.5 mg/dL (0.2-1.3); Blood Urea Nitrogen 15 mg/dL (7-17); Calcium 9.7 mg/dL (8.4-10.2); Carbon Dioxide 27 mmol/L (22-30); Chloride 103 mmol/L (98-107); Estimated CRCL calculation 154 ml/min; Estimated Glomerular Filt Rate > 60; Glucose 134 mg/dL (65-110); Potassium 4.3 mmol/L (3.4-5.0); Sodium 140 mmol/L (137-145)
[2024-04-16] MEDS: BENZONATATE 100 MG CAPSULE 200 MG PO ×2 (08:25→13:28)
[2024-04-16] MEDS: DOXYCYCLINE HYCLATE 100 MG TABLET PO ×2 (08:25→21:32)
[2024-04-16] MEDS: ENOXAPARIN 40 MG/0.4 ML SYRINGE SUB-Q (08:25)
--- NOTE | 2024-04-16 09:08 | PM.IMPN ---
Progress Note: A&P Assessment and Plan (1) Sepsis: Code(s): A41.9 - Sepsis, unspecified organism Status: Acute Assessment and Plan: Meets SIRS criteria: leukocytosis, HR, RR with new O2 requirement - lactic acid: 1.4 on 04/15 - s/p 2 L NS bolus in the ED - suspected source: atypical pneumonia - blood cultures drawn on 04/14: NGTD - UA: cloudy appearance, trace ketones, 1+ blood, 6-10 RBC, 2+ bacteria. Nonconcerning for infection. No culture sent. - CXR: airspace opacities in the lower lung zones, consistent with atelectasis vs pneumonia - Chest/abdomen CT: milod diffuse lung disease, likely atypical pneumonia. - Chest CTA: No pulmonary embolus. Stable mild diffuse lung disease, likely atypical pneumonia. New small pleural effusions. (2) Acute hypoxic respiratory failure: Code(s): J96.01 - Acute respiratory failure with hypoxia Status: Acute Assessment and Plan: Patient requiring 9L high flow on admission, baseline room air. Hypoxia likely due to patients atypical pneumonia vs emphysema/copd vs PE. - Requiring 2 L NC, baseline RA. Oxygen via NC; wean as tolerated. Keep SpO2 greater than 90% - Patient smokes an entire disposable vape every week and approximately 1 g of weed daily since she was 18 years old. Encouraged smoking cessation. Denies need for nicotine patch at this time. - RN called stating patient spO2 drops into the 80s while sleeping, upon waking will return to 100%. Was going to obtain an apnealink to evaluate for MARISABEL given patients weight and boyfriends report that she snores and wakes gasping for air. Per respiratory unable to obtain apnealink given patients current O2 requirement. Will continue to monitor her overnight and may try again as O2 is weaned off. - CTA chest ordered to rule out PE given that patient has new O2 requirement and has been tachycardic. - Chest CTA: No pulmonary embolus. Stable mild diffuse lung disease, likely atypical pneumonia. New small pleural effusions. (3) Atypical pneumonia: Code(s): J18.9 - Pneumonia, unspecified organism Status: Acute Assessment and Plan: - CXR: airspace opacities in the lower lung zones, consistent with atelectasis vs pneumonia - Chest/abdomen CT: milod diffuse lung disease, likely atypical pneumonia. - ABG: pH 7.459, pCO2 32.9, pO2 66, HCO3 22.8 - Viral PCR: negative for Flu/COVID/RSV - Blood cultures collected on 04/14: NGTD - started on antibiotics on 04/14: doxy and rocephin - Requiring 2 L NC, baseline RA. Oxygen via NC; wean as tolerated. Keep SpO2 greater than 90% - supportive treatment tyl prn nebs prn - Monitor vital signs, I&Os, neuro status and patient is a fall risk - Follow WBC, serum electrolytes, temperature curves and cultures Time Spent With Patient Time with patient: 25 - 35 minutes Subjective Date/time seen: 04/16/24 09:08 Interval history: 24 year old female with no past medical history reports to the hospital for shortness of breath, cough and palpitations. Patient is pleasant sitting up in her chair with family at bedside. She states she is feeling better than yesterday. Nursing has been able to wean her to 2L NC and her O2 sats are stable. She denies chest pain, shortness of breath, cough and palpitations. She notes increased shortness of breath with ambulation. She remains on doxy and rocephin at this time. She did have an increase in her WBC, however this is likely related to the steroids as patients symptoms are improving. Per respiratory unable to obtain apnealink given patients current O2 requirement. Will continue to monitor her overnight and may try again as O2 is weaned off. Review of Systems Review of Systems: All systems reviewed & are unremarkable except as noted in HPI and below Exam Narrative: AF HR 86 RR 20 SpO2 98 2L NC BP 120/68 General: female in no acute respiratory distress who is nontoxic appearing, sitting up in her chair. Patient is not gasping for air and able t
[2024-04-17] VITALS (8 sets, daily range): BP systolic 130; BP diastolic 69; PULSE 67–88; RESP 18–20; TEMP 36.4; O2SAT 94
--- NOTE | 2024-04-17 02:15 | PCRCNOTE ---
Patient did not receive 00:00 updraft treatment due to being on an apnea link. Updraft treatment will resume when apnea link is removed, approx. 0430.
[2024-04-17] MEDS: IPRATROPIUM 0.5 MG/ALBUTEROL SULFATE 2.5 MG AMPUL.NEB 3 ML INHALATION ×2 (04:38→07:41)
[2024-04-17] MEDS: methylPREDNISolone SOD SUCC 40 MG VIAL IV PUSH (05:44)
--- NOTE | 2024-04-17 07:32 | PM.IMPN ---
Progress Note: A&P Assessment and Plan (1) Sepsis: Code(s): A41.9 - Sepsis, unspecified organism Status: Acute Assessment and Plan: Meets SIRS criteria: leukocytosis, HR, RR with new O2 requirement - lactic acid: 1.4 on 04/15 - s/p 2 L NS bolus in the ED - suspected source: atypical pneumonia - blood cultures drawn on 04/14: NGTD - UA: cloudy appearance, trace ketones, 1+ blood, 6-10 RBC, 2+ bacteria. Nonconcerning for infection. No culture sent. - CXR: airspace opacities in the lower lung zones, consistent with atelectasis vs pneumonia - Chest/abdomen CT: milod diffuse lung disease, likely atypical pneumonia. - Chest CTA: No pulmonary embolus. Stable mild diffuse lung disease, likely atypical pneumonia. New small pleural effusions. (2) Acute hypoxic respiratory failure: Code(s): J96.01 - Acute respiratory failure with hypoxia Status: Acute Assessment and Plan: Patient requiring 9L high flow on admission, baseline room air. Hypoxia likely due to patients atypical pneumonia vs emphysema/copd vs PE. - Requiring 2 L NC, baseline RA. Oxygen via NC; wean as tolerated. Keep SpO2 greater than 90% - Patient smokes an entire disposable vape every week and approximately 1 g of weed daily since she was 18 years old. Encouraged smoking cessation. Denies need for nicotine patch at this time. - RN called stating patient spO2 drops into the 80s while sleeping, upon waking will return to 100%. Was going to obtain an apnealink to evaluate for MARISABEL given patients weight and boyfriends report that she snores and wakes gasping for air. Per respiratory unable to obtain apnealink given patients current O2 requirement. Will continue to monitor her overnight and may try again as O2 is weaned off. - CTA chest ordered to rule out PE given that patient has new O2 requirement and has been tachycardic. - Chest CTA: No pulmonary embolus. Stable mild diffuse lung disease, likely atypical pneumonia. New small pleural effusions. (3) Atypical pneumonia: Code(s): J18.9 - Pneumonia, unspecified organism Status: Acute Assessment and Plan: - CXR: airspace opacities in the lower lung zones, consistent with atelectasis vs pneumonia - Chest/abdomen CT: milod diffuse lung disease, likely atypical pneumonia. - ABG: pH 7.459, pCO2 32.9, pO2 66, HCO3 22.8 - Viral PCR: negative for Flu/COVID/RSV - Blood cultures collected on 04/14: NGTD - started on antibiotics on 04/14: doxy and rocephin - Requiring 2 L NC, baseline RA. Oxygen via NC; wean as tolerated. Keep SpO2 greater than 90% - supportive treatment tyl prn nebs prn - Monitor vital signs, I&Os, neuro status and patient is a fall risk - Follow WBC, serum electrolytes, temperature curves and cultures Subjective Date/time seen: 04/17/24 07:32 Interval history: 24 year old female with no past medical history reports to the hospital for shortness of breath, cough and palpitations. Review of Systems Review of Systems: All systems reviewed & are unremarkable except as noted in HPI and below Exam Narrative: AF HR General: female in no acute respiratory distress who is nontoxic appearing, sitting up in her chair. Patient is not gasping for air and able to speak in full sentences. HEENT: Normocephalic. Atraumatic. Extraocular movement intact. Sclera clear and anicteric. Chest: Lungs are diminished with inspiratory wheezes to auscultation bilaterally, improved from yesterday. No crackles. CV: Heart was regular rate and rhythm. S1-S2. No murmurs, gallops, or rubs. Abd: Abdomen was soft. Nontender. Nondistended. Positive bowel sounds. No organomegaly or masses. Objective Data Vital Signs Vital Signs: Vital Signs - 24 hr 04/16/24 08:00 04/16/24 11:12 04/16/24 11:12 Temperature Pulse Rate 74 Respiratory Rate 20 Blood Pressure Pulse Oximetry 92 96 Oxygen Delivery High Flow Nasal Cannula High Flow Nasal Cannula Oxygen Flow Rate 4 4 Fra
[2024-04-17 07:53] LABS: Basophils Percent Auto 0.2 % (0.2-1.2); Hematocrit 45.2 % (37.0-47.0); Hemoglobin 14.8 g/dL (12.0-15.0); Immature Granulocyte Absolute 0.22 K/mm3 (0.00-0.031); Immature Granulocyte Percent A 1.2 % (0-0.5); Lymphocytes Absolute Auto 1.01 K/mm3 (0.9-3.2); Lymphocytes Percent Auto 5.4 % (18.3-44.2); Mean Corpuscular HGB Conc 32.7 g/dl (32-36); Mean Corpuscular Hemoglobin 28.4 pg (26-34); Mean Corpuscular Volume 86.8 fl (80-100); Mean Platelet Volume 9.2 fl (7.4-10.4); Monocytes Absolute Auto 0.5 K/mm3 (0.1-0.6); Monocytes Percent Auto 2.6 % (2.6-8.5); Neutrophils Percent Auto 90.6 % (45.5-73.1); Platelet Count Result 429 k/mm3 (150-375); Red Blood Count 5.21 M/mm3 (4.2-5.4); Red Cell Distribution Width 12.5 % (11.5-14.5); White Blood Count 18.8 K/mm3 (4.5-10.0)
[2024-04-17 08:00] LABS: Alanine Aminotransferase 18 U/L (6-35); Albumin Level 4.6 g/dL (3.5-5.1); Alkaline Phosphatase 86 U/L (38-126); Anion Gap 10 mmol/L (4-12); Aspartate Amino Transferase 20 U/L (14-36); Bilirubin,Total 0.8 mg/dL (0.2-1.3); Blood Urea Nitrogen 20 mg/dL (7-17); Calcium 9.8 mg/dL (8.4-10.2); Carbon Dioxide 27 mmol/L (22-30); Chloride 102 mmol/L (98-107); Estimated CRCL calculation 133 ml/min; Estimated Glomerular Filt Rate > 60; Glucose 124 mg/dL (65-110); Potassium 4.6 mmol/L (3.4-5.0); Sodium 139 mmol/L (137-145)
[2024-04-17] MEDS: BENZONATATE 100 MG CAPSULE 200 MG PO (08:53)
[2024-04-17] MEDS: ERGOCALCIFEROL 50,000 UNITS CAPSULE 50000 UNITS PO (08:53)
[2024-04-17] MEDS: ENOXAPARIN 40 MG/0.4 ML SYRINGE SUB-Q (08:54)
[2024-04-17] MEDS: DOXYCYCLINE HYCLATE 100 MG TABLET PO (08:54)
--- NOTE | 2024-04-17 09:19 | P.CDI_ITS ---
CDI Query Clarification Request Patient with a BMI of 42.6 please provide a diagnosis to accompany this finding: * Overweight * Obesity * Morbid Obesity * Other/Unknown <Dede Poole RN - Last Filed: 04/17/24 09:20> Clarified Diagnosis Clarified Diagnosis: morbid obesity <Temitope Ballard PA-C - Last Filed: 04/17/24 12:37>
--- NOTE | 2024-04-17 10:47 | PM.DS ---
DS: Admitting Diagnosis Discharge Date 04/17/24 Admitting Diagnosis sepsis acute hypoxic respiratory failure atypical pneumonia DS: Discharge Diagnosis Discharge Diagnosis (1) Sepsis: Code(s): A41.9 - Sepsis, unspecified organism Status: Acute (2) Acute hypoxic respiratory failure: Code(s): J96.01 - Acute respiratory failure with hypoxia Status: Acute (3) Atypical pneumonia: Code(s): J18.9 - Pneumonia, unspecified organism Status: Acute DS: Summary Hospital Course Reason for hospitalization: sepsis acute hypoxic respiratory failure atypical pneumonia Hospital Course: 24 year old female with no past medical history reports to the hospital for shortness of breath, cough and palpitations. Patient requiring 9L high flow on admission, baseline room air. Meets SIRS criteria with leukocytosis, HR, RR with new O2 requirement. Lactic was 1.4 and patient received 2 L bolus in ED. Viral panel negative. ABG: pH 7.459, pCO2 32.9, pO2 66, HCO3 22.8. A chest XR was obtained and showed airspace opacities in the lower lung zones, consistent with atelectasis vs pneumonia. A chest/abdomen CT showed mild diffuse lung disease likely atypical pneumonia. Patient was started on IV antibiotics at that time and steroids for atypical pneumonia. Due to her tachycardia and oxygen requirement a CTA was obtained to rule out PE. No PE was seen on imaging. RN called stating patient spO2 drops into the 80s while sleeping, upon waking will return to 100%. An apnealink was obtained to evaluate for MARISABEL given patients weight and boyfriends report that she snores and wakes gasping for air. Apnea link showing possible sleep disorder. Discussed this with patient and she is to follow up with her PCP for official sleep study. During admission patient was able to wean back to room air. Discussed patient with infectious disease pharmacy and will start her on Levaquin at time of discharge to complete antibiotic course. Patient will also be started on oral prednisone. Prior to discharge patient denied chest pain, shortness of breath, nausea/vomiting and abdominal pain. Patient discharged home in a stable condition. She is to complete her course of antibiotics and steroids as prescribed and follow up with her PCP in 1 week. Status at Discharge Functional status at discharge: independent ambulation Time Spent with Patient Time attestation: Total time spent providing and/or coordinating discharge services: Time spent: Greater than 30 minutes Exam Narrative: AF HR 88 RR 20 SpO2 94 BP 130/69 General: female in no acute respiratory distress who is nontoxic appearing, sitting up in her chair. Patient is not gasping for air and able to speak in full sentences. HEENT: Normocephalic. Atraumatic. Extraocular movement intact. Sclera clear and anicteric. Chest: Lungs are clear with slight inspiratory wheezes more so in the upper lobes to auscultation bilaterally, improved from yesterday. No crackles. CV: Heart was regular rate and rhythm. S1-S2. No murmurs, gallops, or rubs. Abd: Abdomen was soft. Nontender. Nondistended. Positive bowel sounds. No organomegaly or masses. DS: Data Data Completed and Pending Completed studies during hospitalization: Chest CTA Chest abdomen CT chest XR Labs on day of discharge: Labs from last 24 hours 04/17/24 07:28 WBC 18.8 H RBC 5.21 Hgb 14.8 Hct 45.2 MCV 86.8 MCH 28.4 MCHC 32.7 RDW 12.5 Plt Count 429 H MPV 9.2 Immature Gran % (Auto) 1.2 H Neut % (Auto) 90.6 H Lymph % (Auto) 5.4 L Barton % (Auto) 2.6 Eos % (Auto) 0.0 Baso % (Auto) 0.2 Lymph # (Auto) 1.01 Barton # (Auto) 0.5 Eos # (Auto) 0.0 Baso # (Auto) 0.0 Abs Immat Gran (auto) 0.22 H Absolute Neuts (auto) 17.0 H Absolute Nucleated RBC 0.000 Nucleated RBC % 0.0 Sodium 139 Potassium 4.6 Chloride 102 Carbon Dioxide 27 Anion Gap 10 BUN 20 H Creatinine 0.70 Estim Creat Clear Calc 133 Estimated GFR > 60
== END 2024-04-17 11:50 | disposition home or self-care (01) | DRG 871 ==
LOC: ANHED 04-15 01:24 → ANH3MEDSUR 04-15 03:07
PROVIDERS: Internal Medicine; Physician Assistant; Admitting Provider Family Medicine; Emergency Provider Registered Nurse; Visit Provider Student in an Organized Health Care Education/Training Program
DX: A41.9 Sepsis, unspecified organism (principal); J18.9 Pneumonia, unspecified organism; J96.01 Acute respiratory failure with hypoxia; Z68.41 Body mass index [BMI] 40.0-44.9, adult; E66.01 Morbid (severe) obesity due to excess calories; F17.290 Nicotine dependence, other tobacco product, uncomplicated; Z20.822 Contact with and (suspected) exposure to COVID-19
CPT/HCPCS: 36415; 36600; 71046; 71260; 71275; 74160; 80048; 80053; 81001; 81025; 82805; 83605; 83735; 84145; 84484; 85025; 85380; 85610; 85730; 87040; 87637; 93005; 94640; 94762; 96361; 96365; 96367; 96375; 99291; A9270; G0378; J0696; J1650; J2405; J2919; J7030; J7512; Q9967

== ENCOUNTER 2024-08-09 01:41 | Emergency (ER) | payer OTHER, SELFPAY ==
[2024-08-09 01:58] VITALS: BP 105/43; PULSE 88; RESP 16; TEMP 36.2; O2SAT 99
[2024-08-09 10:13] VITALS: BP 136/72; PULSE 73; RESP 18; TEMP 36.9; O2SAT 100
[2024-08-09 11:00] VITALS: BP 123/87; PULSE 97; RESP 12; TEMP 36.7; O2SAT 97
--- NOTE | 2024-08-09 11:42 | ECG_ITS ---
Test Date: 2024-08-09 11:51:48 Measurements Intervals [place] Rate: 70 P: 48 KS: 166 QRS: 56 QRSD: 87 T: 30 QT: 368 QTc: 398 Interpretive Statements SINUS RHYTHM WITH SINUS ARRHYTHMIA Compared to ECG 04/14/2024 19:47:54 No significant changes Electronically Signed On 08-14-2024 10:16:32 [employer] by Neil Mathew M.D.
[2024-08-09] MEDS: KETOROLAC (*BKC) 60 MG/2 ML VIAL IM (12:19)
[2024-08-09] MEDS: MECLIZINE HCL 25 MG TABLET PO (12:19)
[2024-08-09 12:28] LABS: Influenza A QL RT-PCR Negative (Negative); Influenza B QL RT-PCR Negative (Negative); SARS-CoV-2 RNA PCR Positive (Negative)
--- NOTE | 2024-08-09 12:57 | ED_ITS ---
HPI - General Adult General Chief complaint: Neck Pain/Injury Stated complaint: neck pain Time Seen by Provider: 08/09/24 12:09 History of Present Illness HPI narrative: Patient is a 24-year-old female who presents the ER with body aches of the neck and chest and back. Ongoing since yesterday afternoon. No documented fevers. 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 Mild cough. endorses vomiting and nausea. Related Data Home Medications ?Medication ?Instructions ?Recorded ?Confirmed ?Last Taken ?Type Vitamin D3 50,000 units PO WEEKLY 04/15/24 04/16/24 04/10/24 History famotidine 20 mg PO DAILY 04/15/24 04/15/24 Unknown History Allergies Allergy/AdvReac Type Severity Reaction Status Date / Time ondansetron (From Zofran) AdvReac Rash Verified 08/09/24 01:42 Review of Systems Review of Systems: All systems reviewed & are unremarkable except as noted in HPI and below Constitutional: Constitutional: Reports chills, Reports fatigue and Denies fever(s) ENT: Reports system reviewed and no additional complaints, except as documen sulema Cardiovascular: Cardiovascular: Reports no additional cardiovascular complaints Gastrointestinal: Gastrointestinal: Reports no additional gastrointestinal complaints PMF Past Medical History Medical History No pertinent past medical history Surgical History Surgical History No pertinent past surgical history Family History Family History (Updated 04/15/24 @ 04:01 by Nellie Santamaria RN) Grandparent Breast cancer Diabetes mellitus Father Diabetes mellitus Mother Kidney disease Social History Social History Smoking status: Current every day smoker Tobacco type: e-cigarettes/vaping Alcohol intake: never Substance use: current Substance use type: marijuana Last use: 04/14/2024 Do You Feel Safe in your Home?: Yes Lack of Transportation: No Lack of Food: Never True Current Housing: I Have Housing Concerned About Future Housing: No Difficulty Paying Gas/Electric Bills: No Difficulty Paying for Meds: No Currently Unemployed: No Education: Grade School Difficulty w/ Childcare or Family Care: No Spiritual care concerns: No Exam Narrative: GENERAL: Well-appearing, well-nourished, and in no acute distress. HEAD: Normocephalic, atraumatic. ENT: Mucous membranes moist. NECK: Supple. CHEST: Clear to auscultation. No respiratory distress. HEART: Regular rate and rhythm. Normal peripheral pulses. EXTREMITIES: Normal range of motion. No edema. NEURO: Alert and oriented x3. PSYCH: Normal mood and affect. Course Course Emergency Course: COVID positive. Discussed supportive care. Discharge. Vital Signs Vital signs: Vital Signs Temperature 97.1 F L 08/09/24 01:58 Pulse Rate 88 08/09/24 01:58 Respiratory Rate 16 08/09/24 01:58 Blood Pressure 105/43 L 08/09/24 01:58 Pulse Oximetry 99 08/09/24 01:58 Oxygen Delivery Room Air 08/09/24 01:58 Temperature 98.5 F 08/09/24 10:13 Pulse Rate 73 08/09/24 10:13 Respiratory Rate 18 08/09/24 10:13 Blood Pressure 136/72 08/09/24 10:13 Pulse Oximetry 100 08/09/24 10:13 Oxygen Delivery Room Air 08/09/24 01:58 Medical Decision Making Vital Signs Vital Signs: Vital Signs Temperature 97.1 F L 08/09/24 01:58 Pulse Rate 88 08/09/24 01:58 Respiratory Rate 16 08/09/24 01:58 Blood Pressure 105/43 L 08/09/24 01:58 Pulse Oximetry 99 08/09/24 01:58 Oxygen Delivery Room Air 08/09/24 01:58 Temperature 98.5 F 08/09/24 10:13 Pulse Rate 73 08/09/24 10:13 Respiratory Rate 18 08/09/24 10:13 Blood Pressure 136/72 08/09/24 10:13 Pulse Oximetry 100 08/09/24 10:13 Oxygen Delivery Room Air 08/09/24 01:58 Lab Data Labs: Lab Results 08/09/24 Range/Units 11:45 Influenza A (RT-PCR) Negative (Negative) Influenza B (RT-PCR) Negative (Negative) SARS-CoV-2 RNA (RT-PCR) Positive A (Negative) ECG Data EKG #1: ECG completion date: 08/09/24 ECG completion time: 11:51 EKG Interpretation: normal rate (7), sinus rhythm, no ectopy, no ST changes, normal QRS, normal QT and NL axis Discharge Plan Discharge Clinical Impression: COVID Patient Disposition: Home, Self-Care Condition: Stable Instructions: COVID-19 (Coronavirus Disease 2019) (ED) Additional Instructions: As discussed you have a viral illness. Unfortunately there are no specific medications we can give you to make the illness end faster. Antibiotics do not work for viral illnesses. However, you can take Acetaminophen or Ibuprofen to help with fevers and pain. Stay well hydrated and rested. Return to the emergency department if your fevers and chills continue to worse after 5 days, if you develop worsening cough with thick sputum, or are unable to stay hydrated. Contact your primary care provider in the next few days for a re-evaluation and to make sure your symptoms are improving. Contact your work to let them know you are sick. Wear a mask for the next 10 days when in public. Patient Language: Vietnamese Prescriptions: No Action albuterol sulfate 90 mcg/actuation HFA aerosol inhaler 2 puff inhalation QID PRN (Reason: shortness of breath or wheezing) Qty: 6.7 0RF Vitamin D3 50,000 Units tablet 50,000 units PO WEEKLY Rx Instructions: TAKE ON MONDAYS famotidine 20 mg tablet 20 mg PO DAILY prednisone 10 mg tablet 10 mg PO DIRECTED Qty: 20 0RF Rx Instructions: see taper instructions 40 mg (4 tabs) x 2 days, then 30 mg (3 tabs) x 2 days, then 20 mg (2 tabs) x 2 days, then 10 mg (1 tab) x 2 days, stop levofloxacin 750 mg tablet 750 mg PO DAILY 5 Days Qty: 5 0RF Follow-up/Referrals: UNKNOWN,DOCTOR [Primary Care Provider] - 1 Week Stand Alone Forms: Work/School Release IP
--- OUTSIDE RECORDS SUMMARY | 2024-08-16 01:53 | XMS_ITS | Clinical Summary ---
Author Organization [facility] [employer] [place] Address [address] [place] [id number] Care Team Providers Care Automated Access Systems Technician Name Role Phone Cathy Liao MD Primary Care Provider [phone] Allergies Active Allergy Reactions Criticality Noted Date Comments Ondansetron Rash Low 03/02/2024 Red Dye Nausea and Vomiting Low 03/02/2024 Medications Medication Sig Dispensed Refills Start Date End Date Status famotidine (PEPCID) 20 mg tabletIndications:Na usea Take 1 Tablet (20 mg) by mouth daily. 03/02/2024 Active ergocalciferol (VITAMIN D2) 50,000 unit capsule Take 1 Capsule (50,000 Units) by mouth every 7 days. Take ONCE WEEKLY for total of 8 weeks. Take in addition to daily Vitamin D 3 supplement. 12 Capsule 04/03/2024 Active cholecalciferol (Vitamin D3) 25 mcg (1,000 unit) Tablet, ChewableIndications: Vitamin D deficiency Take 3 Tablets (3,000 Units) by mouth daily. 04/03/2024 Active albuterol sulfate HFA 90 mcg/actuation aerosol inhalerIndications:M ild intermittent reactive airway disease without complication Take 2 Puffs by inhalation every 6 hours as needed for Shortness of Breath. 8.5 Gram 04/28/2024 Active Active Problems Problem Noted Date Diagnosed Date Morbid obesity with body mass index of 40.0-49.9 04/03/2024 Dyspepsia 04/03/2024 Mild depression 04/03/2024 Vitamin D deficiency 03/06/2024 Amenorrhea 06/20/2019 Acanthosis 06/20/2019 Immunizations Name Administration Dates Next Due (ADACEL/BOOSTRIX)(10 YR UP) TDAP VACCINE, 0.5ML, IM 04/03/2024,2013 (GARDASIL)(9-45 YRS) HUMAN PAPILLOMAVIRUS VACCINE, TYPES 6, 11, 16, 18, QUADRIVALENT (4VHPV), 3 DOSE, IM 05/15/2016,2013 (HAVRIX/VAQTA)(12 MO-18 YRS) HEPATITIS A VACCINE 0.5 ML PED/ADOL 2 DOSE, IM 03/08/2007,04/09/2006 (INFANRIX)(6 WKS-6 YRS) DIPT HERIA, TETANUS TOXOIDS, AND ACCELLULAR PERTUSSIS VACCINE (DTAP), 0.5 ML IM 03/08/2007,11/02/2003,2002,07/11,2002 (IPOL)(6 WKS AND UP) POLIOVI LANRE VACCINE, INACTIVATED (IPV), 3 DOSE, SUBCUT OR IM 03/08/2007,11/02/2003,2002,06/01 (M-M-R II/PRIORIX)(12 MO UP) MEASLES, MUMPS AND RUBELLA VIRUS VACCINE, 0.5 ML IM/SUBCUT 03/29/2003 (PROQUAD)(12 MOS-12 YRS)ROLDAN LES, MUMPS, RUBELLA, AND VARICELLA VIRUS VACCINE. 0.5 ML, SUBCUT 03/08/2007 (RECOMBIVAX HB/ENGERIX-B)(0- 19 YRS) HEPATITIS B VACCINE 5 MCG/0.5 ML OR 10 MCG/0.5 ML PED OR ADOL 3 DOSE (PF), IM 01/09/2003,2002,2002 (VARIVAX)(12 MOS UP)VARICELL A VIRUS VACCINE (PF) 0.5 ML, SUB CUT 03/29/2003 Hemophilus influenza b vacci ne (Hib), HbOC conjugate (4 dose schedule), for intramuscular use 11/02/2003,2002,2002,06/01 INFLUENZA VACCINE QUADRIVALE NT 6 MOS UP IM 05/15/2016 INFLUENZA VACCINE QUADRIVALE NT 6 MOS UP PF IM 04/28/2021 Meningococcal Polysaccharide Vaccine SQ 2013 Family History Medical History Relation Name Comments No Known Problems Brother No Known Problems Father Other Maternal Grandfather MVA No Known Problems Maternal Grandmother Kidney Disease Mother No Known Problems Paternal Grandfather No Known Problems Paternal Grandmother Relation Name Status Comments Brother Alive Father Alive Maternal Grandfather Maternal Grandmother Alive Mother Alive Paternal Grandfather Alive Paternal Grandmother Alive Social History Tobacco Use Types Packs/Day Years Used Date Smoking Tobacco: Never Smokeless Tobacco: Never Alcohol Use Standard Drinks/Week Comments Not Asked 0 (1 standard drink = 0.6 oz pure alcohol) 2-3 alcoholic mixed drinks / month Sex and Gender Information Value Date Recorded Sex Assigned at Not on file Gender Identity Not on file Sexual Orientation Not on file Last Filed Vital Signs Vital Sign Reading Time Taken Comments Blood Pressure 118/68 04/28/2024 10:52 AM CDT Pulse 60 04/28/2024 10:52 AM CDT Temperature 36.8 ??C (98.3 ??F) 04/28/2024 10:52 AM C DT Respiratory Rate 16 04/28/2024 10:52 AM CDT Oxygen Saturation 98% 04/28/2024 10:52 AM CDT Inhaled Oxygen Concentration - - Weight 113.4 kg (250 lb) 04/28/2024 10:52 AM CDT Height 162.6 cm (5' 4 ) 04/28/2024 10:52 AM CDT Body Mass Index 42.91 04/28/2024 10:52 AM CDT Plan of Treatment Health Maintenance Due Date Last Done Comments PNEUMOCOCCAL VACCINE 0-64 YE ARS (1 of 2 - PCV) 2008 CHLAMYDIA SCREENING (ANNUAL) 11-24 YEARS 2013 CERVICAL CANCER SCREENING 2023 INFLUENZA VACCINE (#1) 2024 04/28/2021, 2015 DTAP/TDAP/TD VACCINES (8 - T d or Tdap) 04/03/2034 04/03/2024, 2013, 03/08/2007, Additional history exists HEPATITIS B VACCINES Completed 01/09/2003, 2002, 2002 HPV VACCINES Completed 05/15/2016, 2013 Care Teams Automated Access Systems Technician Relationship Specialty Start Date End Date Cathy Liao MD [address] [place] [id number] PCP - General Internal Medicine 04/28/24
--- OUTSIDE RECORDS SUMMARY | 2024-08-16 01:53 | XMS_ITS | Encounter Summary ---
Author Organization [facility] Address [address] [place] [address] Care Team Providers Care Senior Devops Engineer Name Role Phone Unavailable Primary Care Provider Unavailabl e Reason for Visit * Reason Comments nauseous Patient was diagnose d with mono on 02/16/24, and ER recommended she follow up with her primary care, and she does not have one at this time. Patient also states she has been nauseous in the mornings for about 5 years. Encounter Details Date Type Department Care Team (Late st Contact Info) Description 03/02/2024 7:30 AM CDT Office Visit [facility] [place] [address] [place] [address] Tiffani Lopez, ANP [address] [facility] Mirella Fernández [facility] [address] [place] [address] Abnormal LFTs (liver function tests) (Primary Dx); History of mononucleosis; Nausea; Screening for condition; PCOS (polycystic ovarian syndrome); Moderate episode of recurrent major depressive disorder; Morbid obesity with body mass index of 40.0-49.9 Social History Tobacco Use Types Packs/Day Years Used Date Smoking Tobacco: Never Smokeless Tobacco: Never Alcohol Use Standard Drinks/Week Comments Never 0 (1 standard drink = 0.6 oz pur e alcohol) Sex and Gender Information Value Date Recorded Sex Assigned at Not on file Gender Identity Not on file Sexual Orientation Not on file documented as of this encounter Last Filed Vital Signs Vital Sign Reading Time Taken Comments Blood Pressure 116/68 03/02/2024 7:26 AM CDT Pulse 60 03/02/2024 7:26 AM CDT Temperature 36.1 ??C (96.9 ??F) 03/02/2024 7:26 AM CD T Respiratory Rate 16 03/02/2024 7:26 AM CDT Oxygen Saturation 99% 03/02/2024 7:26 AM CDT Inhaled Oxygen Concentration - - Weight 110.2 kg (243 lb) 03/02/2024 7:26 AM CDT Height 162.6 cm (5' 4 ) 03/02/2024 7:26 AM CDT Body Mass Index 41.71 03/02/2024 7:26 AM CDT documented in this encounter Progress Notes * Tiffani Lopez, ANP - 03/02/2024 7:43 AM CDT HISTORY OF PRESENT ILLNESS Rachel Neal, a 23 y.o. female presents with a Chief Complaint of nauseous (Patient was diagnosed with mono on 02/16/24, and ER recommended she follow up with her primary care, and she does not have one at this time. Patient also states she has been nauseous in the mornings for about 5 years.) Presents for follow up of mononucelosis. Onset of illness approx 8 with lymphadenopathy of cervical area. IN ER dx with virus. Returned to ER for lack of improvement. Advised LFT elevated and dx with Adair. Stopped taking tylenol. Returned to ER for difficultly swallowing fluids and ST pain. Treated with oral steroids and augmentin with improvement. No fever since February 20. Seen at [facility] for each visit. No records available at time of visit. Male partner is without illness. Lives with boyfriend. 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 No known ill contacts. AM nausea for 5 yrs. LMP 3-6 months ago. PCOS dx age 15. Was advised of infertility so uses no contraception. Takes peptobismol at times. Obesity-- Wt is down to 243 from 260. Reports overeating issue. Was working on smaller portions but currentlyher depression is active and not working on it. Low moods-- Misses work one day per week. Just does not feel like going . Never been on medications. Current Outpatient Medications: amoxicillin-clavulanate (AUGMENTIN) 875-125 mg tablet, Take 1 Tablet by mouth 2 times daily., Disp:, Rfl: predniSONE (DELTASONE) 20 mg tablet, Take 2 Tablets by mouth daily., Disp: , Rfl: meclizine HCl (MECLIZINE ORAL), Take by mouth., Disp: , Rfl: famotidine (PEPCID) 20 mg tablet, Take 1 Tablet (20 mg) by mouth daily., Disp: , Rfl: [DISCONTINUED] esomeprazole (NexIUM) 40 mg Capsule, Delayed Release(E.C.), Take 1 Capsule (40 mg) by mouth daily before breakfast., Disp: 30 Capsule, Rfl: 0 Allergy list reviewed. PHQ-2 & PHQ-9 Little interest or pleasure in doing things: Several Days (03/02/24799) Feeling down, depressed, or hopeless: Not at all (03/02/24799) PHQ-2 Total: 1 (03/02/24799) Trouble falling or staying asleep, or sleeping too much: Several Days (03/02/24799) Feeling tired or having little energy: Several Days (03/02/24799) Poor appetite or overeating: Nearly every day (03/02/24799) Feeling bad about yourself-or that you are a failure or have let yourself or your family down: Several Days (03/02/24799) Trouble concentrating on things, such as reading the newspaper or watching television: Nearly everyday (03/02/24799) Moving or speaking so slowly that other people could have noticed. Or the opposite-being so fidgetyor restless that you have been moving around a lot more than usual: Several Days (03/02/24799) Thoughts that you would be better off , or of hurting yourself in some way: Not at all (03/02/24799) PHQ-9 Total: 11 (03/02/24799) Anxiety Disorder (GAD7): 1. Feeling nervous, anxious, or on edge:: Several days (03/02/24799) 2. Not been able to stop or control worrying:: Several days (03/02/24799) 3. Worrying too much about different things:: Several days (03/02/24799) 4.Trouble relaxing:: Several days (03/02/24799) 5. Being so restless that it is hard to sit still:: Over half the days (03/02/24799) 6. Becoming easily annoyed or irritatble:: Nearly every day (03/02/24799) 7. Feeling afraid as if something awful might happen:: Over half the days (03/02/24799) If you checked off any problems, how difficult have these made it for you to do your work, take care of things at home, or get along with other people?: Somewhat difficult (03/02/24799) Anxiety Score: 11 (03/02/24799) TOBACCO COUNSELING She is not a tobacco/nicotine user. REVIEW OF SYSTEMS Review of Systems Constitutional: Negative. HENT: Negative for sore throat. Respiratory: Negative. Cardiovascular: Negative. Gastrointestinal: Negative for abdominal pain. Endocrine: Negative. Musculoskeletal: Negative for back pain. Skin: Negative for color change. Allergic/Immunologic: Negative for immunocompromised state. Neurological: Negative. Hematological: Negative for adenopathy. Does not bruise/bleed easily. Psychiatric/Behavioral: Positive for dysphoric mood. Objective PHYSICAL EXAM BP 116/68 (BP Location: Right arm, Patient Position (BP): Sitting, BP Cuff Size: Adult) Pulse 60 Temp 96.9 ??F (36.1 ??C) (Tympanic) Resp 16 Ht 5' 4 (1.626 m) Wt 110.2 kg (243 lb) SpO2 99% BMI 41.71 kg/m?? Physical Exam Vitals reviewed. Constitutional: General: She is not in acute distress. HENT: Head: Normocephalic. Nose: Nose normal. Mouth/Throat: Mouth: Mucous membranes are moist. Pharynx: Oropharynx is clear. Eyes: Conjunctiva/sclera: Conjunctivae normal. Cardiovascular: Rate and Rhythm: Normal rate and regular rhythm. Heart sounds: Normal heart sounds. No murmur heard. Pulmonary: Effort: Pulmonary effort is normal. Breath sounds: Normal breath sounds. Abdominal: Palpations: Abdomen is soft. There is no splenomegaly. Tenderness: There is no abdominal tenderness. Musculoskeletal: Cervical back: Neck supple. Lymphadenopathy: Cervical: No cervical adenopathy. Neurological: Mental Status: She is alert. Psychiatric: Mood and Affect: Mood normal. Procedures POC pregnacy urine test -- NEGATIVE> Assessment ASSESSMENT and PLAN: 1. Abnormal LFTs (liver function tests) Viral illness related. Repeat today. Get ER records to compare. - COMPREHENSIVE METABOLIC PANEL; Future - CBC WITH DIFFERENTIAL; Future - CBC WITH DIFFERENTIAL - COMPREHENSIVE METABOLIC PANEL 2. History of mononucleosis Clinically resolved. 3. Nausea Start daily pepcid in AM or at HS. Reassess at next apt. - famotidine (PEPCID) 20 mg tablet; Take 1 Tablet (20 mg) by mouth daily. - POC , URINE 4. Screening for condition - LIPID PANEL; Future - TSH REFLEXIVE; Future - TSH REFLEXIVE - LIPID PANEL 5. PCOS (polycystic ovarian syndrome) Recommend [facility]DER for preventive visits and consult. - HEMOGLOBIN A1C; Future - HEMOGLOBIN A1C 6. Moderate episode of recurrent major depressive disorder Ck labs. Has never been on meds. Reassess next appointment. Missing work once per week. - VITAMIN D 25 HYDROXY; Future - VITAMIN B12 LEVEL; Future - VITAMIN B12 LEVEL - VITAMIN D 25 HYDROXY 7. Morbid obesity with body mass index of 40.0-49.9 Enc daily walking. FOLLOW UP Return in about 4 weeks (around 03/30/2024) for 4-6 weeks FU nausea, labs and moods. . Appropriate medications prescribed and pt instructed in risks , benefits and side effects. Appropriate patient instructions provided . See details in AVS Medications and options explained to include common side effects. Understanding of medications, course, diagnosis, and expectations were expressed by patient/guardian. Pt advised to call my office in one week if not contacted with any ordered test results. ROXIE Cervantes 03/02/2024 [facility] AT [address] [address] Some of this encounter may have been transcribed using [employer] Naturally Speaking computerized voicerecognition without a human back closer. This report may or may not have been adjusted for typographical or medical and syntax errors. documented in this encounter Miscellaneous Notes * Result Encounter Note - Keyla Quinonez RN - 03/06/2024 9:19 AM CDT Pt read online [facility] message and has follow up scheduled 04/03/2024 at 8:00 AM * Result Encounter Note - Tiffani Lopez ANP - 03/06/2024 9:06 AM CDT Contact patient regarding result. Liver function tests are much improved. Nearly back to normal levels. Good news. Thyroid levels good. Kidneys and blood sugar ok. Cholesterol is high. Work on better eating with more chicken, fish and less red meats. Less fried foods, pasta and breads. Add more vegetables and fruits. Will discuss at FU appointment. * Patient Instructions - Tiffani Lopez ANP - 03/02/2024 7:54 AM CDT Recommend see METAL CEILING BUILDER for routine visits and to discuss the PCOS. For the nausea, get Famotidine ( PEPCID) 20 mg daily. Take daily for 2 weeks straight , then can cut back to as needed if you wish. Labs today. Hold off on taking tylenol until results known. Gynecology options in the [facility] Dr. Radha Higgins, Dr. Vashti Luther [address] [place] [address] [email or web address] Dr. Negrito Molina, Dr. Harsh Barragan, Dr. Pablo Hatfield, [address] [place] [address] Dr. Lilia Choi MD [facility] [address] [facility] [address] [place] [address] Dr. La Perez [address] [place] [phone] documented in this encounter Plan of Treatment Not on file documented as of this encounter Procedures Procedure Name Priority Date/Time Associated Diagnosis Comments TSH REFLEXIVE Routine 03/02/2024 8:15 AM CDT Screening for condition CBC WITH DIFFERENTIAL Routine 03/02/2024 8:15 AM CDT Abnormal LFTs (liver function tests) VITAMIN D 25 HYDROXY Routine 03/02/2024 8:15 AM CDT Moderate episode of recurrent major depressive disorder HEMOGLOBIN A1C Routine 03/02/2024 8:15 AM CDT PCOS (polycystic ovarian syndrome) VITAMIN B12 LEVEL Routine 03/02/2024 8:1 5 AM CDT Moderate episode of recurrent major depressive disorder LIPID PANEL Routine 03/02/2024 8:15 AM CDT Screening for condition COMPREHENSIVE METABOLIC PANEL Routine 03/02/2024 8:15 AM CDT Abnormal LFTs (liver function tests) POC , URINE Routine 03/02/2024 8:00 AM CDT Nausea documented in this encounter Results * VITAMIN B12 LEVEL (03/02/2024 8:15 AM CDT) VITAMIN B12 399 200 - 1100 pg/mL [facility] Comment: Please Note: Although the reference range for vitamin B12 is 200-1100 pg/mL, it has been reported that between 5 and 10% of patients with values between 200 and 400 pg/mL may experience neuropsychiatric and hematologic abnormalities due to occult B12 deficiency; less than 1% of patients with values above 400 pg/mL will have symptoms. Test Performed at: [facility] [address] [address] ??[phone] Tia Calabrese MD Blood 03/02/2024 8:15 AM CDT 03/03/2024 5:06 AM CDT Tiffani Lopez [facility] CHEMISTRY ORDERABLES [facility] [address] [phone] [facility] [address] [place] [address] * (ABNORMAL) VITAMIN D 25 HYDROXY (03/02/2024 8:15 AM CDT) VITAMIN D, 25 OH, TOTAL 18(L) 30 - 100 ng/mL [facility] Comment: Vitamin D Status ? 25-OH Vitamin D: Deficiency: ?<20 ng/mL Insufficiency: ? 20 - 29 ng/mL Optimal: ? > or = 30 ng/mL For 25-OH Vitamin D testing on patients on D2-supplementation and patients for whom quantitation of D2 and D3 fractions is required, the QuestAssureD(TM) 25-OH VIT D, (D2,D3), LC/MS/MS is recommended: order code 13141 (patients >2yrs). See Note 1 Note 1 For additional information, please refer to http://education.NeuroPace/faq/VBW376 (This link is being provided for informational/ educational purposes only.) Test Performed at: [facility] [id number] [place] [address] ??[phone] Tia Calabrese MD Blood 03/02/2024 8:15 AM CDT 03/03/2024 5:06 AM CDT Tiffani Lopez [facility] CHEMISTRY ORDERABLES [facility] [phone] [facility] [address] * HEMOGLOBIN A1C (03/02/2024 8:15 AM CDT) Pathologist [facility] HEMOGLOBIN A1C 5.4 <5.7 % of total Hgb [facility] Comment: For the purpose of screening for the presence of diabetes: <5.7% ? Consistent with the absence of diabetes 5.7-6.4% ?Consistent with increased risk for diabetes ?(prediabetes) > or =6.5% ??Consistent with diabetes This assay result is consistent with a decreased risk of diabetes. Currently, no consensus exists regarding use of hemoglobin A1c for diagnosis of diabetes in children. According to [place] Diabetes Association (ADA) guidelines, hemoglobin A1c <7.0% represents optimal control in non- diabetic patients. Different metrics may apply to specific patient populations. Standards of Medical Care in Diabetes(ADA). ?? ESTIMATED AVERAGE GLUCOSE (MG/DL) 108 mg/dL [facility] ESTIMATED AVERAGE GLUCOSE (MMOL/L) 6.0 mmol/L [facility] Comment: ? This test was performed on the Aristeo gurmeet c503 platform. Effective 10/25/23, a change in test platforms from the [employer]emaker to the Aristeo gurmeet c503 may have shifted HbA1c results compared to historical results. Based on laboratory validation testing conducted at [facility], the Aristeo platform relative to the Arciniega platform had an average increase in HbA1c value of < or = 0.3%. This difference is within accepted variability established by the National Glycohemoglobin Standardization Program. Note that not all individuals will have had a shift in their results and direct comparisons between historical and current results for testing conducted on different platforms is not recommended. Test Performed at: [facility] [address] [place], [place] ??[address] Tia Calabrese MD Blood 03/02/2024 8:15 AM CDT 03/03/2024 5:06 AM CDT Tiffani FAUSTIN CHEMISTRY ORDERABLES [facility] [address] [phone] [facility] [facility] [address] [place] [address] * TSH REFLEXIVE (03/02/2024 8:15 AM CDT) TSH 3.40 mIU/L [facility] Comment: ?Reference Range ?> or = 20 Years ??0.40-4.50 ? Ranges ?First trimester ?0.26-2.66 ?Second trimester ?? 0.55-2.73 ?Third trimester ?0.43-2.91 Test Performed at: [facility] ??[address] Tia Calabrese MD Blood 03/02/2024 8:15 AM CDT 03/03/2024 5:06 AM CDT Tiffani Lopez [facility] CHEMISTRY ORDERABLES [facility] [address] [phone] [facility] [employer] [address] * (ABNORMAL) LIPID PANEL (03/02/2024 8:15 AM CDT) CHOLESTEROL 210(H) <200 mg/dL [facility] HDL 45(L) > OR = 50 mg/dL [facility] TRIGLYCERIDE 276(H) <150 mg/dL [facility] Comment: If a non-fasting specimen was collected, consider repeat triglyceride testing on a fasting specimen if clinically indicated. Fiona et al. J. of Clin. Lipidol. 2015;9:129-169. LDL CALCULATED 123(H) mg/dL (calc) [facility] Comment: Reference range: <100 Desirable range <100 mg/dL for primary prevention; ?? <70 mg/dL for patients with CHD or diabetic patients with > or = 2 CHD risk factors. LDL-C is now calculated using the Rosalino calculation, which is a validated novel method providing better accuracy than the Friedewald equation in the estimation of LDL-C. Forest GOODMAN et al. MAGDI. 2013;310(19): 5204-1845 (http://education.NeuroPace/faq/BLW546) CHOL/HDL RATIO 4.7 <5.0 (calc) [facility] NON-HDL CHOLESTEROL 165(H) <130 mg/dL (calc) [facility] Comment: For patients with diabetes plus 1 major ASCVD risk factor, treating to a non-HDL-C goal of <100 mg/dL (LDL-C of <70 mg/dL) is considered a therapeutic option. Test Performed at: [facility] ??[phone] Tia Calabrese MD Blood 03/02/2024 8:15 AM CDT 03/03/2024 5:06 AM CDT Tiffani Lopez [facility] CHEMISTRY ORDERABLES [facility] [phone] [facility] [employer] [address] * (ABNORMAL) CBC WITH DIFFERENTIAL (03/02/2024 8:15 AM CDT) WBC 7.9 3.8 - 10.8 Thousand/u L [facility] RBC 5.37(H) 3.80 - 5.10 Million/uL [facility] HEMOGLOBIN 15.1 11.7 - 15.5 g/dL [facility] HEMATOCRIT 47.4(H) 35.0 - 45.0 % [facility] MCV 88.3 80.0 - 100.0 fL [facility] MCH 28.1 27.0 - 33.0 pg [facility] MCHC 31.9(L) 32.0 - 36.0 g/dL [facility] RDW 12.3 11.0 - 15.0 % [facility] PLATELETS 351 140 - 400 Thousand/u L [facility] MPV 9.3 7.5 - 12.5 fL [facility] NEUTROPHIL ABSOLUTE 5,072 1,500 - 7,800 cells/uL [facility] LYMPHOCYTE ABSOLUTE 1,920 850 - 3,900 cells/uL [facility] MONOCYTE ABSOLUTE 672 200 - 950 cells/uL [facility] EOSINOPHIL ABSOLUTE 158 15 - 500 cells/uL [facility] BASOPHILS ABSOLUTE 79 0 - 200 cells/uL [facility] NEUTROPHIL 64.2 % [facility] LYMPHOCYTES 24.3 % [facility] MONOCYTE 8.5 % [facility] EOSINOPHILS 2.0 % [facility] BASOPHILS 1.0 % [facility] Comment: Test Performed at: [facility] [address] [place], [place] ??[phone] Tia Calabrese MD Blood 03/02/2024 8:15 AM CDT 03/03/2024 5:06 AM CDT Tiffani Lopez [facility] HEMATOLOGY ORDERABLE S [facility] [phone] [facility] [place] [place] [address] [place] [address] * (ABNORMAL) COMPREHENSIVE METABOLIC PANEL (03/02/2024 8:15 AM CDT) GLUCOSE 89 65 - 99 mg/dL [facility] Comment: ? Fasting reference interval BUN 17 7 - 25 mg/dL [facility] CREATININE 0.86 0.50 - 0.96 mg/dL [facility] GFR 99 > OR = 60 mL/min/1. 73m2 [facility] BUN/CREAT RATIO SEE NOTE: 6 - 22 (calc) [facility] Comment: ?? Not Reported: BUN and Creatinine are within ?? reference range. ? SODIUM 142 135 - 146 mmol/L [facility] POTASSIUM 4.7 3.5 - 5.3 mmol/L [facility] CHLORIDE 103 98 - 110 mmol/L [facility] CO2 27 20 - 32 mmol/L [facility] CALCIUM 9.5 8.6 - 10.2 mg/dL [facility] TOTAL PROTEIN 7.1 6.1 - 8.1 g/dL [facility] ALBUMIN 4.2 3.6 - 5.1 g/dL [facility] GLOBULIN 2.9 1.9 - 3.7 g/dL (calc) [facility] ALBUMIN/GLOBULIN RATIO 1.4 1.0 - 2.5 (calc) [facility] BILIRUBIN TOTAL 1.5(H) 0.2 - 1.2 mg/dL [facility] ALKALINE PHOSPHATASE 103 31 - 125 U/L [facility] AST 18 10 - 30 U/L [facility] ALT 39(H) 6 - 29 U/L [facility] Comment: Test Performed at: [address] ??[phone] Tia Calabrese MD Blood 03/02/2024 8:15 AM CDT 03/03/2024 5:06 AM CDT Tiffani Lopez ANP CHEMISTRY ORDERABLES [facility] [phone] [facility] [id number] [place] [phone] * POC , URINE (03/02/2024 8:00 AM CDT) HCG QUAL URINE POC Negative Negative, Indeterminate [facility] [[email or web address] INTERNAL KIT QC POC Pass Pass [facility] [[email or web address]] KIT LOT NUMBER POC [id number] [facility] [[email or web address]] KIT EXP DATE POC 03/07/2025 [facility] [[email or web address]] Urine 03/02/2024 8:00 AM CDT Tiffani Lopez ANP POINT OF CARE TESTIN G [facility] [[email or web address]] CLIA# [id number] [address] [place] [id number] documented in this encounter Visit Diagnoses Diagnosis Abnormal LFTs (liver function tests)- Primary Other abnormal blood chemistry History of mononucleosis Personal history of other infectious and parasitic disease Nausea Nausea alone Screening for condition Screening for unspecified condition PCOS (polycystic ovarian syndrome) Polycystic ovaries Moderate episode of recurrent major depressive disorder Morbid obesity with body mass index of 40.0-49.9 documented in this encounter Additional Health Concerns Assessment Noted Time PHQ-9 Depression Total Score: 03/02/20 24 8:00 AM CDT documented as of this encounter
--- OUTSIDE RECORDS SUMMARY | 2024-08-16 01:53 | XMS_ITS | Encounter Summary ---
Author Organization [facility] Address [address] [place] [address] Care Team Providers Care Cake Tester Name Role Phone Unavailable Primary Care Provider Unavailabl e Encounter Details Date Type Department Care Team (Late st Contact Info) Description 03/30/2024 External Device Data [facility] ABSTRACTION Provider, Abstract NO ADDRESS ON FILE Social History Tobacco Use Types Packs/Day Years Used Date Smoking Tobacco: Never Smokeless Tobacco: Never Alcohol Use Standard Drinks/Week Comments Never 0 (1 standard drink = 0.6 oz pur e alcohol) Sex and Gender Information Value Date Recorded Sex Assigned at Not on file Gender Identity Not on file Sexual Orientation Not on file documented as of this encounter Plan of Treatment Not on file documented as of this encounter Visit Diagnoses Not on filedocumented in this encounter Additional Health Concerns Assessment Noted Time PHQ-9 Depression Total Score: 1 03/02/20 24 8:00 AM CDT documented as of this encounter
--- OUTSIDE RECORDS SUMMARY | 2024-08-16 01:53 | XMS_ITS | Encounter Summary ---
Author Organization [facility] Address [address] [place] [address] Care Team Providers Care Master Chef Name Role Phone Unavailable Primary Care Provider Unavailabl e Encounter Details Date Type Department Care Team (Late st Contact Info) Description 03/07/2024 External Device Data [facility] ABSTRACTION Provider, Abstract [...]
--- OUTSIDE RECORDS SUMMARY | 2024-08-16 01:53 | XMS_ITS | Encounter Summary ---
Author Organization [employer] [facility] Address [address] [place] [address] Care Team Providers Care Special Effects Makeup Artist Name Role Phone Cathy Liao MD Primary Care Provider [phone] Reason for Referral * Eval and Treat (Routine) - Open Specialty Diagnoses / Procedures Referred By Contac t Referred To Contact Diagnoses Nocturnal hypoxemia Procedures OH OFFICE/OUTPATIENT ESTABLISHED MOD MDM 30 MIN OH OFFICE/OUTPATIENT NEW MODERATE MDM 45 MINUTES Cathy Liao MD [address] [place] [address] Referral ID Status Reason Start Date Expiration Date Visits Re quested Visits Authorized [id number] Open 04/28/2024 04/28/2025 1 1 Reason for Visit * Reason Comments Hospital Follow Up Patient had pneumoni a, and was in the hospital Sept 6-9. And her breathing is not quite back to normal. Encounter Details Date Type Department Care Team (Late st Contact Info) Description 04/28/2024 11:00 AM CDT Office Visit [facility] [employer] [place] [address] [place] [address] Cathy Liao MD [address] [place] [address] Hospital discharge follow-up (Primary Dx); Atypical pneumonia; Nocturnal hypoxemia; Mild intermittent reactive airway disease without complication; Morbid obesity with body mass index of 40.0-49.9; Dyspepsia; Current every day nicotine vaping Social History Tobacco Use Types Packs/Day Years [...] Mass Index 42.91 04/28/2024 10:52 AM CDT documented in this encounter Progress Notes * Cathy Liao MD - 04/28/2024 11:52 AM CDT HISTORY OF PRESENT ILLNESS Rachel Neal, a 24 y.o. female presents with a Chief Complaint of Hospital Follow Up (Patient had pneumonia, and was in the hospital Sept 6-9. And her breathing is not quite back to normal.) Subjective HPI Hospitalized at [facility] 04/15-04/17 Discharge diagnosis- Atypical Pneumonia, acute respiratory failure Presented with shortness of breath- required 9L high flow oxygen in ER. 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 Does not feel the detergent/ chemicals make her SHORTNESS OF BREATH Hospital course progressed without incident Discharged on tapering course of Steroids and Levaquin to complete 10 days.- which she has done States she does feel better than when she was discharged but does not feel like her breathing is fully back to baseline She does vape ( has done so since age 18-17), is trying hard to stay off but has borrowed a few puffs from friends since discharge REVIEW OF SYSTEMS Review of Systems Constitutional: Negative for fever. HENT: Negative for ear pain. Respiratory: Positive for wheezing. Cardiovascular: Negative for chest pain and leg swelling. Gastrointestinal: Negative for abdominal pain. Musculoskeletal: Negative for neck pain. Skin: Negative for rash. Neurological: Negative for headaches. Objective PHYSICAL EXAM BP 118/68 (BP Location: Right arm, Patient Position (BP): Sitting, BP Cuff Size: Large Adult) Pulse 60 Temp 98.3 ??F (36.8 ??C) (Tympanic) Resp 16 Ht 5' 4 (1.626 m) Wt 113.4 kg (250 lb) LMP 04/13/2024 (Approximate) SpO2 98% BMI 42.91 kg/m?? Physical Exam Constitutional: General: She is not in acute distress. Appearance: She is obese. HENT: Right Ear: Tympanic membrane normal. Left Ear: Tympanic membrane normal. Nose: Congestion present. Mouth/Throat: Mouth: Mucous membranes are moist. Pharynx: Oropharynx is clear. Eyes: General: No scleral icterus. Conjunctiva/sclera: Conjunctivae normal. Neck: Thyroid: No thyromegaly. Cardiovascular: Rate and Rhythm: Normal rate and regular rhythm. Heart sounds: Normal heart sounds. Pulmonary: Effort: Pulmonary effort is normal. No respiratory distress. Breath sounds: Wheezing (intermittent upper town[place]- scattered) present. No rales. Abdominal: General: Bowel sounds are normal. Lymphadenopathy: Cervical: No cervical adenopathy. Skin: General: Skin is warm and dry. Coloration: Skin is not jaundiced. Neurological: General: No focal deficit present. Mental Status: She is alert. Psychiatric: Mood and Affect: Mood normal. Procedures Assessment ASSESSMENT and PLAN: ICD-10-CM ICD-9-CM 1. Hospital discharge follow-up Z09 V67.59 2. Atypical pneumonia J18.9 486 Improved with good sats Encouraged her to eat healthy, get adequate rest Liban in 6 weeks-XR CHEST PA AND LATERAL 2 VW Follow up 7 weeks (after chest xray) 3. Nocturnal hypoxemia G47.34 327.24 AMB REFERRAL TO SLEEP STUDIES 4. Mild intermittent reactive airway disease without complication J45.20 493.90 albuterol sulfate HFA 90 mcg/actuation aerosol inhaler 5. Morbid obesity with body mass index of 40.0-49.9 E66.01 278.01 Long discussion about obesity andthe significant negative impact it has on overall health and longevity. Low fat, chol, carb weight loss/ caloric restricted diet Exercise- 1 hour aerobic activity 5x weekly is goal Start slowly and work towards goal once she has fully recovered from the pneumonia 6. Dyspepsia R10.13 536.8 Address next visit States she takes pepcid every other day Symptomatic reflux Question if impacting her breathing/causing reactive airway disease. Consider tril of daily PPI 7. Current every day nicotine vaping Z72.0 305.1 STOP documented in this encounter Plan of Treatment Scheduled Orders Name Type Priority Associated Diagnoses Orde r Schedule XR CHEST PA AND LATERAL 2 VW Imaging Routine Atypical pneumonia Expected: 06/09/2024, Expires: 04/28/2025 Scheduled Referrals Name Type Priority Associated Diagnoses Orde r Schedule AMB REFERRAL TO SLEEP STUDIES Outpatient Referral Routine Nocturnal hypoxemia Ordered: 04/28/2024 documented as of this encounter Visit Diagnoses Diagnosis Hospital discharge follow-up- Primary Other follow-up examination Atypical pneumonia Pneumonia, organism unspecified Nocturnal hypoxemia Hypoxemia Mild intermittent reactive airway disease without complication Morbid obesity with body mass index of 40.0-49.9 Dyspepsia Dyspepsia and other specified disorders of function of stomach Current every day nicotine vaping documented in this encounter Additional Health Concerns Assessment Noted Time PHQ-9 Depression Total Score: 2 04/03/20 24 8:00 AM CDT documented as of this encounter Care Teams Special Effects Makeup Artist Relationship Specialty Start Date End Date Cathy Liao MD [address] [place] [address] [place] [address] PCP - General Internal Medicine 04/28/24 documented as of this encounter
--- OUTSIDE RECORDS SUMMARY | 2024-08-16 01:53 | XMS_ITS | Encounter Summary ---
Author Organization [facility] Address [address] [place] [address] Care Team Providers Care Data Operations Director Name Role Phone Unavailable Primary Care Provider [...]
--- OUTSIDE RECORDS SUMMARY | 2024-08-16 01:53 | XMS_ITS | Encounter Summary ---
Author Organization [facility] Address [address] [place] [address] Care Team Providers Care Greeting Card Editor Name Role Phone Unavailable Primary Care Provider [...]
--- OUTSIDE RECORDS SUMMARY | 2024-08-16 01:53 | XMS_ITS | Encounter Summary ---
Author Organization [facility] Address [address] [place] [address] Care Team Providers Care Database Programmer Analyst Name Role Phone Unavailable Primary Care Provider Unavailabl e Reason for Visit * Reason Comments Abdominal Pain Encounter Details Date Type Department Care Team (Late st Contact Info) Description 04/28/2021 9:00 AM CDT Office Visit [facility] [employer] [place] [address] [place] [address] Wesley Morrison MD NO ADDRESS ON FILE Epigastric abdominal pain (Primary Dx) Social History Tobacco Use Types Packs/Day Years Used Date Smoking Tobacco: Never Smokeless Tobacco: Never Alcohol Use Standard Drinks/Week Comments Never 0 (1 standard drink = 0.6 oz pur e alcohol) Sex and Gender Information Value Date Recorded Sex Assigned at Not on file Gender Identity Not on file Sexual Orientation Not on file COVID-19 Exposure Response Date Recorded In the last month, have you been in contact with someone who was confirmed or suspected to have Coronavirus / COVID-19? No / Unsure 04/28/2021 8:54 AM CDT documented as of this encounter Last Filed Vital Signs Vital Sign Reading Time Taken Comments Blood Pressure 122/64 04/28/2021 8:56 AM CDT Pulse 89 04/28/2021 8:56 AM CDT Temperature 36.1 ??C (96.9 ??F) 04/28/2021 8:56 AM CD T Respiratory Rate 18 04/28/2021 8:56 AM CDT Oxygen Saturation 97% 04/28/2021 8:56 AM CDT Inhaled Oxygen Concentration - - Weight 101.6 kg (224 lb) 04/28/2021 8:56 AM CDT Height 162.6 cm (5' 4 ) 04/28/2021 8:56 AM CDT Body Mass Index 38.45 04/28/2021 8:56 AM CDT documented in this encounter Progress Notes * Wesley Morrison MD - 04/28/2021 8:59 AM CDT Rachel Neal is a 21 y.o. female Chief Complaint/HPI: Chief Complaint Patient presents with ??? Abdominal Pain Tobacco Intervention She is not a tobacco user. Depression Screen PHQ-2 Total: 0 (04/28/21 0800) Positive: PHQ-2 score >= 3 or PHQ-9 score >= 9 PHQ-2 Total: 0 (04/28/2021 8:00 AM) DEPRESSION PLAN OF CARE Her depression screen was normal Blood Pressure BP Readings from Last 3 Encounters: 04/28/21 122/64 06/20/19 116/76 (72 %/ 86 %)* *BP percentiles are based on the 2017 AAP Clinical Practice Guideline for girls Normal BMI Range: 18 & older: > or = 18.5 and < 25 Body mass index is 38.45 kg/m??. Abnormal high BMI: Patient counseled on lifestyle modifications including weight loss and daily exercise. This medical record reflects the history of present illness as obtained by myself in discussion with the patient. SUBJECTIVE: Here for above problems. Few months of upper nausea type feeling mostly in morings. When she wakes. If she eats or thinks about eating she gets yucky nausea feeling. Not much pain. Also with some increased cough and phlegm. Later in day all is well. She is able to eat andcarry on. occ vomit but ususally not. No stool chagnes. No fever. No blood. Has taken several at home preg tests all neg. ROS Review of Systems - History obtained from chart review and the patient General ROS: negative for weight changes, fever Breast ROS: negative for breast lumps or pain Respiratory ROS: negative for cough, shortness of breath, or wheezing except for above Cardiovascular ROS: negative for chest pain or dyspnea on exertion Gastrointestinal ROS: asa giuliana Genito-Urinary ROS: negative for dysuria, trouble voiding, or hematuria Allergy and medication list reviewed and updated. OBJECTIVE: She appears well, in no apparent distress. Vital signs documented in vital signs section and are reviewed. Physical Examination: General appearance - alert, well appearing, and in no distress and oriented to person, place, and time Mental status - alert, oriented to person, place, and time, normal mood, behavior, speech, dress, motor activity, and thought processes Chest - clear Heart - normal rate, regular rhythm, normal S1, S2, no murmurs, rubs, clicks or gallops Abdomen - normal appearing. Not distended. bs normal. No pain. Some nausea feeling with papl of epigastric area. No right upper quad pain Results for orders placed or performed in visit on 04/28/21 POC , URINE Result Value Ref Range HCG QUAL URINE Negative Negative INTERNAL KIT QC Pass Pass KIT LOT NUMBER [id number] KIT EXPIRATION DATE 06/08/2022 ASSESSMENT AND PLAN: ICD-10-CM ICD-9-CM 1. Epigastric abdominal pain R10.13 789.06 POC , URINE esomeprazole (NexIUM) 40 mg Capsule, Delayed Release(E.C.) Discussed. Follow after meds with update. paitnet to let us know if she would like labs /pcos discussion, prediabetes/diabetes discussion May use EAP for help with weight loss Flu shot today documented in this encounter Plan of Treatment Not on file documented as of this encounter Procedures Procedure Name Priority Date/Time Associated Diagnosis Comments POC , URINE Routine 04/28/2021 9:16 AM CDT Epigastric abdominal pain documented in this encounter Results * POC , URINE (04/28/2021 9:16 AM CDT) HCG QUAL URINE Negative Negative [facility] [place] INTERNAL KIT QC Pass Pass [facility] [place] KIT LOT NUMBER POC [id number] [facility] [place] KIT EXPIRATION DATE POC 06/08/2022 [facility] [place] Urine 04/28/2021 9:16 AM CDT Wesley Morrison MD POINT OF CARE TESTIN G [facility]# [id number] [address] [place] [address] documented in this encounter Visit Diagnoses Diagnosis Epigastric abdominal pain- Primary Abdominal pain, epigastric documented in this encounter
--- OUTSIDE RECORDS SUMMARY | 2024-08-16 01:53 | XMS_ITS | Encounter Summary ---
Author Organization [facility] Address [address] [place] [address] Care Team Providers Care High School Assistant Football Coach Name Role Phone Unavailable Primary Care Provider Unavailabl e Encounter Details Date Type Department Care Team (Late st Contact Info) Description 03/28/2024 External Device Data ST[facility] ABSTRACTION Provider, Abstract [...]
--- OUTSIDE RECORDS SUMMARY | 2024-08-16 01:53 | XMS_ITS | Encounter Summary ---
Author Organization [facility] Address [address] [place] [address] Care Team Providers Care Electro Mechanical Solar Technician Name Role Phone Unavailable Primary Care Provider Unavailabl e Reason for Visit * Reason Comments Depression Results Nausea Encounter Details Date Type Department Care Team (Late st Contact Info) Description 04/03/2024 8:00 AM CDT Office Visit [facility] at Work [employer] [place] [address] [place] [address] Tiffani Lopez, ANP [address] [facility] [address] [place] [address] Dyspepsia (Primary Dx); Mixed hyperlipidemia; Need for ihenbppffv-rvkbyti-be rtussis (Tdap) vaccine; Vitamin D deficiency; Morbid obesity with body mass index of 40.0-49.9; Mild depression Social History Tobacco Use Types Packs/Day Years [...] Sign Reading Time Taken Comments Blood Pressure 114/64 04/03/2024 7:52 AM CDT Pulse 68 04/03/2024 7:52 AM CDT Temperature 36.7 ??C (98.1 ??F) 04/03/2024 7:52 AM CD T Respiratory Rate 18 04/03/2024 7:52 AM CDT Oxygen Saturation 98% 04/03/2024 7:52 AM CDT Inhaled Oxygen Concentration - - Weight 112.5 kg (248 lb) 04/03/2024 7:52 AM CDT Height 162.6 cm (5' 4 ) 04/03/2024 7:52 AM CDT Body Mass Index 42.57 04/03/2024 7:52 AM CDT documented in this encounter Progress Notes * Tiffani Lopez ANP - 04/03/2024 8:34 AM CDT Depression Screen Positive: PHQ-2 score >= 3 or PHQ-9 score >= 9 PHQ-2 Total: 2 (04/03/2024 8:00 AM) PHQ-9 Total: 9 (04/03/2024 8:00 AM) DEPRESSION PLAN OF CARE Her depression screen was positive. She was scheduled for a future appointment to do an additional evaluation. Recommend walking. Improved nutrition. Monitor. * Tiffani Lopez ANP - 04/03/2024 8:07 AM CDT HISTORY OF PRESENT ILLNESS Rachel Neal, a 24 y.o. female presents with a Chief Complaint of Depression, Results, and Nausea Daily AM nausea much improved with taking pepcid 20 mg nightly. Denies GERD. 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 Lipids high. She admits to eating less expensive foods that are not always nutritious due to costs. Vit D level low. Discussed weekly supplement x 12 weeks and daily supplement indefinitely. She is not outdoors for sun exposure. REVIEW OF SYSTEMS Review of Systems Constitutional: Positive for unexpected weight change (5 lbs up). Negative for appetite change and fatigue. Eyes: Negative. Respiratory: Negative. Cardiovascular: Negative. Gastrointestinal: Negative. Negative for nausea and vomiting. Musculoskeletal: Positive for arthralgias (R Knee stiff at times). Psychiatric/Behavioral: Positive for decreased concentration (has ADD. manages it without meds). The patient is not nervous/anxious. Objective PHYSICAL EXAM BP 114/64 (BP Location: Left arm, Patient Position (BP): Sitting, BP Cuff Size: Large Adult) Pulse 68 Temp 98.1 ??F (36.7 ??C) (Tympanic) Resp 18 Ht 5' 4 (1.626 m) Wt 112.5 kg (248 lb) SpO2 98% BMI 42.57 kg/m?? Physical Exam Vitals reviewed. HENT: Mouth/Throat: Mouth: Mucous membranes are moist. Pharynx: Oropharynx is clear. Eyes: General: No scleral icterus. Cardiovascular: Rate and Rhythm: Normal rate and regular rhythm. Heart sounds: Normal heart sounds. No murmur heard. Pulmonary: Effort: Pulmonary effort is normal. Breath sounds: Normal breath sounds. Abdominal: Palpations: Abdomen is soft. Tenderness: There is no abdominal tenderness. Musculoskeletal: Cervical back: Neck supple. Right lower leg: No edema. Left lower leg: No edema. Neurological: General: No focal deficit present. Mental Status: She is alert. Psychiatric: Mood and Affect: Mood normal. Procedures Assessment ASSESSMENT and PLAN: 1. Dyspepsia Continue daily pepcid 20 mg dose. Continue reduce soda intake and acidic foods. 2. Mixed hyperlipidemia Mediterranean diet discussed. Offered WWT health navigator. 3. Need for xzxyghigxe-musksqm-jqgyujzll (Tdap) vaccine - (ADACEL/BOOSTRIX)(10 YR UP) TDAP VACCINE, IM 4. Vitamin D deficiency Prescription 50K weekly x 12 weeks. And add OTC 3000 units daily. 5. Morbid obesity with body mass index of 40.0-49.9 Enc acitivty outdoors like simple walking for vit D and wt control. FOLLOW UP Return in about 6 months (around 10/04/2024) for FU chol, vit D, naueas. fasting labs. . Appropriate medications prescribed and pt instructed in risks , benefits and side effects. Appropriate patient instructions provided . See details in AVS Medications and options explained to include common side effects. Understanding of medications, course, diagnosis, and expectations were expressed by patient/guardian. Pt advised to call my office in one week if not contacted with any ordered test results. ROXIE Cervantes 04/03/2024 [facility] [employer] [facility] [employer] [address] [address] Some of this encounter may have been transcribed using FND computerized voicerecognition without a human grain commodity manager. This report may or may not have been adjusted for typographical or medical and syntax errors. documented in this encounter Miscellaneous Notes * Patient Instructions - Tiffani Lopez ANP - 04/03/2024 8:18 AM CDT Images from the original note were not included. Take the vit D supplement once weekly prescription AND add daily Vit d 3 -- taking 3000 units daily. Learning About the Mediterranean Diet What is the Mediterranean diet? The Mediterranean diet is a style of eating rather than a diet plan. It features foods eaten in [place], [place], southern [place] and [place], and other countries along the [place] Sea. It emphasizes eating foods like fish, fruits, vegetables, beans, high-fiber breads and whole grains, nuts, and olive oil. This style of eating includes limited red meat, cheese, and sweets. Why choose the Mediterranean diet? A Mediterranean-style diet may improve heart health. It contains more fat than other heart-healthy diets. But the fats are mainly from nuts, unsaturated oils (such as fish oils and olive oil), and certain nut or seed oils (such as canola, soybean, or flaxseed oil). These fats may help protect the heart and blood vessels. How can you get started on the Mediterranean diet? Here are some things you can do to switch to a more Mediterranean way of eating. What to eat Eat a variety of fruits and vegetables each day, such as grapes, blueberries, tomatoes, broccoli, peppers, figs, olives, spinach, eggplant, beans, lentils, and chickpeas. Eat a variety of whole-grain foods each day, such as oats, brown rice, and whole wheat bread, pasta, and couscous. Eat fish at least 2 times a week. Try tuna, salmon, mackerel, monge trout, galvin, or sardines. Eat moderate amounts of low-fat dairy products, such as milk, cheese, or yogurt. Eat moderate amounts of poultry and eggs. Choose healthy (unsaturated) fats, such as nuts, olive oil, and certain nut or seed oils like canola, soybean, and flaxseed. Limit unhealthy (saturated) fats, such as butter, palm oil, and coconut oil. And limit fats found in animal products, such as meat and dairy products made with whole milk. Try to eat red meat only a few times a month in very small amounts. Limit sweets and desserts to only a few times a week. This includes sugar- sweetened drinks like soda. The Mediterranean diet may also include red wine with your meal--1 glass each day for women and up to 2 glasses a day for men. Tips for eating at home Use herbs, spices, garlic, lemon zest, and citrus juice instead of salt to add flavor to foods. Add avocado slices to your sandwich instead of velázquez. Have fish for lunch or dinner instead of red meat. [place] the fish with olive oil, and broil or grill it. Sprinkle your salad with seeds or nuts instead of cheese. Cook with olive or canola oil instead of butter or oils that are high in saturated fat. Switch from 2% milk or whole milk to 1% or fat-free milk. Dip raw vegetables in a vinaigrette dressing or hummus instead of dips made from mayonnaise or sourcream. Have a piece of fruit for dessert instead of a piece of cake. Try baked apples, or have some dried fruit. Tips for eating out Try broiled, grilled, baked, or poached fish instead of having it fried or breaded. Ask your restaurant server to have your meals prepared with olive oil instead of butter. Order dishes made with marinara sauce or sauces made from olive oil. Avoid sauces made from cream or mayonnaise. Choose whole-grain breads, whole wheat pasta and pizza crust, brown rice, beans, and lentils. Cut back on butter or margarine on bread. Instead, you can dip your bread in a small amount of olive oil. Ask for a side salad or grilled vegetables instead of mohawk fries or chips. Where can you learn more? Go to https://www.healthwise.net/patientEd Enter O407 in the search box to learn more about Learning About the Mediterranean Diet. Current as of: June 15, 2018 Content Version: 12.2 ?? 4104-4409 AddressReport. Care instructions adapted under license by your healthcare professional. If you have questions about a medical condition or this instruction, always ask your healthcare professional. These instructions may not represent the values of this healthcare organization. Address[employer] disclaims any warranty or liability for your use of this information. documented in this encounter Plan of Treatment Not on file documented as of this encounter Visit Diagnoses Diagnosis Dyspepsia- Primary Dyspepsia and other specified disorders of function of stomach Mixed hyperlipidemia Need for usyyarfpyg-dkogocr-kesozfbhd (Tdap) vaccine Need for prophylactic vaccination with combined jonschwqtp-xwngbdg-hprxhopkj (DTP) vaccine Vitamin D deficiency Unspecified vitamin D deficiency Morbid obesity with body mass index of 40.0-49.9 Mild depression Depressive disorder, not elsewhere classified documented in this encounter Additional Health Concerns Assessment Noted Time PHQ-9 Depression Total Score: 2 04/03/20 24 8:00 AM CDT documented as of this encounter
--- OUTSIDE RECORDS SUMMARY | 2024-08-16 01:53 | XMS_ITS | Encounter Summary ---
Author Organization [facility] Address [address] [place] [address] Care Team Providers Care Content Administrator Name Role Phone Unavailable Primary Care Provider [...]
--- OUTSIDE RECORDS SUMMARY | 2024-08-16 01:53 | XMS_ITS | Encounter Summary ---
Author Organization [facility] Address [address] [place] [address] Care Team Providers Care Chief Compliance Officer Name Role Phone Unavailable Primary Care Provider [...]
--- OUTSIDE RECORDS SUMMARY | 2024-08-16 01:53 | XMS_ITS | Encounter Summary ---
Author Organization [facility] Address [address] [place]: Epic Prelude ADT [place] BOSS [address] Care Team Providers Care Sourcing Consultant Name Role Phone Unavailable Primary Care Provider Unavailabl e Encounter Details Date Type Department Care Team (Latest Contact Info) Description 04/28/2021 Travel Social History Tobacco Use Types Packs/Day Years [...] AM CDT documented as of this encounter Plan of Treatment Not on file documented as of this encounter Visit Diagnoses Not on filedocumented in this encounter
--- OUTSIDE RECORDS SUMMARY | 2024-08-16 01:53 | XMS_ITS | Encounter Summary ---
Author Organization [facility] Address [address] [place] [address] Care Team Providers Care Infant Room Teacher Name Role Phone Unavailable Primary Care Provider Unavailabl e Reason for Visit * Reason Comments Contraception Encounter Details Date Type Department Care Team (Late st Contact Info) Description 06/20/2019 9:00 AM FOAMING MACHINE OPERATOR Office Visit [facility] at Work [employer] [place] [address] [place] [address] Renuka Cerda, MODESTA [address] [facility] [place] [address] [place] [address] Amenorrhea (Primary Dx); Acanthosis; Screening for condition Social History Tobacco Use Types Packs/Day Years [...] Sign Reading Time Taken Comments Blood Pressure 116/76 06/20/2019 9:01 AM FOAMING MACHINE OPERATOR Pulse 76 06/20/2019 9:01 AM FOAMING MACHINE OPERATOR Temperature 36.2 ??C (97.2 ??F) 06/20/2019 9:01 AM CS T Respiratory Rate 18 06/20/2019 9:01 AM FOAMING MACHINE OPERATOR Oxygen Saturation 99% 06/20/2019 9:01 AM FOAMING MACHINE OPERATOR Inhaled Oxygen Concentration - - Weight 114.3 kg (252 lb) 06/20/2019 9:01 AM FOAMING MACHINE OPERATOR Height 162.6 cm (5' 4 ) 06/20/2019 9:01 AM FOAMING MACHINE OPERATOR Body Mass Index 43.26 06/20/2019 9:01 AM FOAMING MACHINE OPERATOR Body Mass Index Percentile 99.75% 06/20/2019 9:0 1 AM FOAMING MACHINE OPERATOR Growth Chart: CDC (Girls, 2- 20 Years) documented in this encounter Progress Notes * Renuka Cerda, MODESTA - 06/20/2019 9:08 AM CST Images from the original note were not included. HISTORY OF PRESENT ILLNESS Rachel Neal is a 19 y.o. female who presents for Chief Complaint Patient presents with ??? Contraception In a year has been off her OCP. Hx of amenorrhea with possible PCOS. States he PCP diagnosed her with PCOS but DIRECTOR D[employer] ADVERT[employer] did labs (last seen 1 year ago) and it did not show this. Has not had a pelvic US. Denies hx of migraines, DVT, non-smoker. Is not sexually active. LMP 05/2018. Would like to get back on an OCP to regulate her menses. Spoke with mother. Daughter did not have menarche. Her only menses occurred with OCP use. Hx of acanthosis on exam. Has been checked for diabetes but has been neg. Family hx of prediabetes. Past Medical History: Diagnosis Date ??? PCOS (polycystic ovarian syndrome) Current Outpatient Medications Medication Sig Dispense Refill ??? norethindrone-e.estradiol-iron (LO LOESTRIN FE) 1 mg-10 mcg (24)/10 mcg (2) Tablet per tablet Take 1 Tablet by mouth daily. 90 Tablet 4 No current facility-administered medications for this visit. No Known Allergies BP 116/76 (BP Location: Left arm, Patient Position (BP): Sitting, BP Cuff Size: Large Adult) Pulse 76 Temp 97.2 ??F (36.2 ??C) (Tympanic) Resp 18 Ht 64 (162.6 cm) Wt 114.3 kg (252 lb) LMP 05/09/2018 (Within Days) SpO2 99% BMI 43.26 kg/m?? MEDICAL RECORD UPDATE Past Medical History: Diagnosis Date ??? PCOS (polycystic ovarian syndrome) Past Surgical History: Procedure Laterality Date ??? PT DENIES RELEVANT SURGICAL HISTORY Family History Problem Relation Name Age of Onset ??? No Known Problems Father ??? Kidney Disease Mother ??? No Known Problems Brother ??? No Known Problems Maternal Grandmother ??? Other Maternal Grandfather MVA ??? No Known Problems Paternal Grandmother ??? No Known Problems Paternal Grandfather Current medications and allergies were reviewed and updated in computerized patient record. [facility] [address] Care Providers: No care steam heating installer to display No Patient Care Coordination Note on file. Vital signs/Tobacco use BP 116/76 (BP Location: Left arm, Patient Position (BP): Sitting, BP Cuff Size: Large Adult) Pulse 76 Temp 97.2 ??F (36.2 ??C) (Tympanic) Resp 18 Ht 64 (162.6 cm) Wt 114.3 kg (252 lb) LMP 05/09/2018 (Within Days) SpO2 99% BMI 43.26 kg/m?? Blood Pressure BP Readings from Last 3 Encounters: 06/20/19 116/76 (72 %/ 86 %)* *BP percentiles are based on the 2017 AAP Clinical Practice Guideline for girls BMI POC (QM) Body mass index is 43.26 kg/m??. Normal BMI range: 18 & older: > or = 18.5 and < 25 Abnormal high BMI: Patient counseled on lifestyle modifications including weight loss and daily exercise. The CVD Risk score (D'Agostino, et al., 2008) failed to calculate for the following reasons: The 2008 CVD risk score is only valid for ages 30 to 74 Consider Statins if 10 year risk >7.5-10% Tobacco Use (QM) reports that she has never smoked. She has never used smokeless tobacco. She is not a tobacco user. EXAMINATION REVIEW OF SYSTEMS Review of Systems Constitutional: Negative. Negative for malaise/fatigue. HENT: Negative. Respiratory: Negative. Cardiovascular: Negative. Gastrointestinal: Negative for abdominal pain, blood in stool, nausea and vomiting. Genitourinary: Negative. Negative for dysuria, frequency and urgency. Skin: Negative. Neurological: Negative for dizziness and headaches. Psychiatric/Behavioral: Negative for depression. The patient is not nervous/anxious. Objective PHYSICAL EXAM Physical Exam Constitutional: Appearance: She is well-developed. HENT: Head: Normocephalic and atraumatic. Nose: Nose normal. Eyes: Conjunctiva/sclera: Conjunctivae normal. Cardiovascular: Rate and Rhythm: Normal rate and regular rhythm. Heart sounds: Normal heart sounds, S1 normal and S2 normal. No murmur. No friction rub. No gallop. Pulmonary: Effort: Pulmonary effort is normal. No respiratory distress. Breath sounds: Normal breath sounds. No wheezing or rales. Skin: General: Skin is warm and dry. Comments: Acanthosis to neck ant/post Neurological: Mental Status: She is alert and oriented to person, place, and time. Results for orders placed or performed in visit on 06/20/19 (from the past 24 hour(s)) POC , URINE Result Value Ref Range HCG QUAL URINE Negative Negative INTERNAL KIT QC Pass Pass KIT LOT NUMBER [id number] KIT EXPIRATION DATE 08/08/2020 ASSESSMENT and PLAN: Rachel was seen today for contraception. Diagnoses and all orders for this visit: Amenorrhea - POC , URINE - US PELVIS + TRANSVAG NON OB; Future - norethindrone-e.estradiol-iron (LO LOESTRIN FE) 1 mg-10 mcg (24)/10 mcg (2) Tablet per tablet; Take 1 Tablet by mouth daily. Acanthosis - HEMOGLOBIN A1C; Future - HEMOGLOBIN A1C Screening for condition - CBC WITH DIFFERENTIAL; Future - COMPREHENSIVE METABOLIC PANEL; Future - TSH; Future - VITAMIN D 25 HYDROXY; Future - VITAMIN D 25 HYDROXY - TSH - COMPREHENSIVE METABOLIC PANEL - CBC WITH DIFFERENTIAL Amenorrhea-restart OCP, has been on in the past. Was able to remember to take daily. Last seen by [employer]OR D[employer] ADVERTISING 1 year ago. Pelvic US, obtain old records for labs. Does not have acne. Preg neg. Acanthosis- check HgA1C, last labs over 1 year ago. Spoke with mother and pt regarding POC, agreeable. ING MACHINE OPERATOR documented in this encounter Miscellaneous Notes * Patient Instructions - Renuka Cerda NP - 06/20/2019 9:33 AM FOAMING MACHINE OPERATOR Images from the original note were not included. [employer]. Combination Control Pills: Care Instructions Your Care Instructions Combination control pills are used to prevent . They give you a regular dose of the hormones estrogen and progestin. You take a hormone pill every day to prevent . control pills come in packs. The most common type has 3 weeks of hormone pills. Some packs have sugar pills (they do not contain any hormones) for the fourth week. During that fourth no-hormoneweek, you have your period. After the fourth week (28 days), you start a new pack. Some control pills are packaged in different ways. For example, some have hormone pills for the fourth week instead of sugar pills. Taking hormones for the entire month causes you to not have periods or to have fewer periods. Others are packaged so that you have a period every 3 months. Your doctor will tell you what type of pills you have. Follow-up care is a segovia part of your treatment and safety. Be sure to make and go to all appointments, and call your doctor if you are having problems. It's also a good idea to know your test resultsand keep a list of the medicines you take. How can you care for yourself at home? How do you take the pill? ?? Follow your doctor's instructions about when to start taking your pills. Use backup control, such as a condom, or don't have intercourse for 7 days after you start your pills. ?? Take your pills every day, at about the same time of day. To help yourself do this, try to take them when you do something else every day, such as brushing your teeth. What if you forget to take a pill? Always read the label for specific instructions, or call your doctor. Here are some basic guidelines: ?? If you miss 1 hormone pill, take it as soon as you remember. Ask your doctor if you may need to use a backup control method, such as a condom, or not have intercourse. ?? If you miss 2 or more hormone pills, take one as soon as you remember you forgot them. Then readthe pill label or call your doctor about instructions on how to take your missed pills. Use a backup method of control or don't have intercourse for 7 days. is more likely if you missmore than 1 pill. ?? If you had intercourse, you can use emergency contraception to help prevent . The most effective emergency contraception is the copper IUD (inserted by a doctor). You can also get emergency contraceptive pills without a prescription at [facility]. What else do you need to know? ?? The pill can have side effects. ? You may have very light or skipped periods. ? You may have bleeding between periods (spotting). This usually decreases after 3 to 4 months. ? You may have mood changes, less interest in sex, or weight gain. ?? The pill may reduce acne, heavy bleeding and cramping, and symptoms of premenstrual syndrome. ?? Check with your doctor before you use any other medicines, including [id number] medicines,vitamins, herbal products, and supplements. control hormones may not work as well to prevent when combined with other medicines. ?? The pill doesn't protect against sexually transmitted infection (STIs), such as herpes or HIV/AIDS. If you're not sure whether your sex partner might have an STI, use a condom to protect against disease. When should you call for help? Call your doctor now or seek immediate medical care if: ? You have severe belly pain. ? You have signs of a blood clot, such as: ? Pain in your calf, back of the knee, thigh, or groin. ? Redness and swelling in your leg or groin. ? You have blurred vision or other problems seeing. ? You have a severe headache. ? You have severe trouble breathing. ??Watch closely for changes in your health, and be sure to contact your doctor if: ? You think you might be . ? You think you may be depressed. ? You think you may have been exposed to or have a sexually transmitted infection. Where can you learn more? Go to https://www.[employer].net/patientEd Enter Z218 in the search box to learn more about Combination Control Pills: Care Instructions. Current as of: January 04, 2019 Content Version: 12.2 ?? [id number] [employer]. Care instructions adapted under license by your healthcare professional. If you have questions about a medical condition or this instruction, always ask your healthcare professional. These instructions may not represent the values of this healthcare organization. [employer] disclaims any warranty or liability for your use of this information. ING MACHINE OPERATOR documented in this encounter Plan of Treatment Not on file documented as of this encounter Procedures Procedure Name Priority Date/Time Associated Diagnosis Comments CBC WITH DIFFERENTIAL Routine 06/20/2019 9:33 AM FOAMING MACHINE OPERATOR Screening for condition VITAMIN D 25 HYDROXY Routine 06/20/2019 9:33 AM FOAMING MACHINE OPERATOR Screening for condition TSH Routine 06/20/2019 9:33 AM FOAMING MACHINE OPERATOR Screening for condition HEMOGLOBIN A1C Routine 06/20/2019 9:33 AM FOAMING MACHINE OPERATOR Acanthosis COMPREHENSIVE METABOLIC PANEL Routine 06/20/2019 9:33 AM FOAMING MACHINE OPERATOR Screening for condition POC , URINE Routine 06/20/2019 9:32 AM FOAMING MACHINE OPERATOR Amenorrhea documented in this encounter Results * HEMOGLOBIN A1C (06/20/2019 9:33 AM FOAMING MACHINE OPERATOR) HEMOGLOBIN A1C 5.1 4.8 - 5.6 % [facility] Comment: ? Prediabetes: 5.7 - 6.4 ? Diabetes: >6.4 ? Glycemic control for adults with diabetes: <7.0 Blood 06/20/2019 9:33 AM FOAMING MACHINE OPERATOR 06/20/2019 Narrative [facility] - 06/21/2019 4:35 AM FOAMING MACHINE OPERATOR Performed at: ??01 - [facility] [address] ??[id number] Roto Rooter Operator: Akash Tomlinson PhD, Phone: ??[phone] Renuka Cerda NP CHEMISTRY ORDER ALMAZ [facility] [phone] * (ABNORMAL) VITAMIN D 25 HYDROXY (06/20/2019 9:33 AM FOAMING MACHINE OPERATOR) VITAMIN D 25 HYDROXY 11.5(L) 30.0 - 100.0 ng/mL [facility] Comment: Vitamin D deficiency has been defined by the [place] of Medicine and an Endocrine Society practice guideline as a level of serum 25-OH vitamin D less than 20 ng/mL (1,2). The Endocrine Society went on to further define vitamin D insufficiency as a level between 21 and 29 ng/mL (2). 1. IOM ([place] of Medicine). 2010. Dietary reference ?? intakes for calcium and D. [place]: The ?? National Academies Press. 2. Thanh MF, Kathy NC, Redd MURRAY, et al. ?? Evaluation, treatment, and prevention of vitamin D ?? deficiency: an Endocrine Society clinical practice ?? guideline. JCEM. 2010; 96(4):1911-30. Blood 06/20/2019 9:33 AM FOAMING MACHINE OPERATOR 06/20/2019 Narrative [facility] - 06/21/2019 6:36 AM FOAMING MACHINE OPERATOR Performed at: ??01 - [facility] ??[id number] Roto Rooter Operator: Akash Tomlinson PhD, Phone: ??[phone] Renuka Cerda NP CHEMISTRY ORDER ALMAZ Performing Organization Address [facility] de Phone Number [facility] [phone] * (ABNORMAL) TSH (06/20/2019 9:33 AM FOAMING MACHINE OPERATOR) TSH 4.910(H) 0.450 - 4.500 uIU/mL [facility] Blood 06/20/2019 9:33 AM FOAMING MACHINE OPERATOR 06/20/2019 Narrative [facility] - 06/21/2019 6:36 AM FOAMING MACHINE OPERATOR Performed at: ?? - [facility] ??[id number] Roto Rooter Operator: Akash Tomlinson PhD, Phone: ??[phone] Renuka Cerda NP CHEMISTRY ORDER ALMAZ Performing Organization Address [facility] de Phone Number [facility] [phone] * (ABNORMAL) COMPREHENSIVE METABOLIC PANEL (06/20/2019 9:33 AM FOAMING MACHINE OPERATOR) GLUCOSE 87 65 - 99 mg/dL [facility] Comment: Specimen received in contact with cells. No visible hemolysis present. However GLUC may be decreased and K increased. Clinical correlation indicated. BUN 17 5 - 18 mg/dL [facility] CREATININE 0.81 0.57 - 1.00 mg/dL [facility] GFR CANCELED mL/min/1.7 3 [facility] Comment: Unable to calculate GFR. ??Age and/or sex not provided or age <18 years old. Result canceled by the ancillary. GFR, CANCELED mL/min/1.7 3 [facility] Comment: Unable to calculate GFR. ??Age and/or sex not provided or age <18 years old. Result canceled by the ancillary. BUN/CREAT RATIO 21 10 - 22 [facility] SODIUM 143 134 - 144 mmol/L [facility] POTASSIUM 4.1 3.5 - 5.2 mmol/L [facility] Comment: Specimen received in contact with cells. No visible hemolysis present. However GLUC may be decreased and K increased. Clinical correlation indicated. CHLORIDE 103 96 - 106 mmol/L [facility] CO2 20 20 - 29 mmol/L [facility] CALCIUM 9.9 8.9 - 10.4 mg/dL [facility] TOTAL PROTEIN 7.9 6.0 - 8.5 g/dL [facility] ALBUMIN 4.7 3.5 - 5.5 g/dL [facility] GLOBULIN 3.2 1.5 - 4.5 g/dL [facility] ALBUMIN/GLOBULIN RATIO 1.5 1.2 - 2.[address] [facility] BILIRUBIN TOTAL 0.5 0.0 - 1.2 mg/dL [facility] ALKALINE PHOSPHATASE 128(H) 45 - 101 IU/L [facility] AST 23 0 - 40 IU/L [facility] ALT 21 0 - 24 IU/L [facility] Blood 06/20/2019 9:33 AM FOAMING MACHINE OPERATOR 06/20/2019 Narrative [facility] - 06/21/2019 5:35 AM FOAMING MACHINE OPERATOR Performed at: ?? - [facility] [address] ??[id number] Roto Rooter Operator: Akash Tomlinson PhD, Phone: ??[phone] Renuka Lesley Cerda TIRE GROOVER CHEMISTRY ORDER ALMAZ [facility] [phone] * CBC WITH DIFFERENTIAL (06/20/2019 9:33 AM FOAMING MACHINE OPERATOR) WBC 8.8 3.4 - 10.8 x10E3/uL [facility] RBC 4.66 3.77 - 5.28 x10E6/uL [facility] HEMOGLOBIN 12.8 11.1 - 15.9 g/dL [facility] HEMATOCRIT 37.3 34.0 - 46.6 % [facility] MCV 80 79 - 97 fL [facility] MCH 27.5 26.6 - 33.0 pg [facility] MCHC 34.3 31.5 - 35.7 g/dL [facility] RDW 13.1 12.3 - 15.4 % [facility] PLATELETS 417 150 - 450 x10E3/uL [facility] NEUTROPHIL 55 Not Estab. % [facility] LYMPHOCYTES 31 Not Estab. % [facility] MONOCYTE 8 Not Estab. % [facility] EOSINOPHILS 5 Not Estab. % [facility] BASOPHILS 1 Not Estab. % [facility] NEUTROPHIL ABSOLUTE 5.0 1.4 - 7.0 x10E3/uL [facility] LYMPHOCYTE ABSOLUTE 2.7 0.7 - 3.1 x10E3/uL [facility] MONOCYTE ABSOLUTE 0.7 0.1 - 0.9 x10E3/uL [facility] EOSINOPHIL ABSOLUTE 0.4 0.0 - 0.4 x10E3/uL [facility] BASOPHILS ABSOLUTE 0.0 0.0 - 0.3 x10E3/uL [facility] IMMATURE GRANULOCYTES 0 Not Estab. % [facility] IMMATURE GRANULOCYTES ABSOLUTE 0.0 0.0 - 0.1 x10E3/uL [facility] Blood 06/20/2019 9:33 AM FOAMING MACHINE OPERATOR 06/20/2019 Narrative [facility] - 06/21/2019 4:35 AM FOAMING MACHINE OPERATOR Performed at: ??01 - [facility] ??[id number] Roto Rooter Operator: Akash Tomlinson PhD, Phone: ??[phone] Renuka Cerda NP HEMATOLOGY ROBLES GALE [facility] [phone] * POC , URINE (06/20/2019 9:32 AM FOAMING MACHINE OPERATOR) HCG QUAL URINE Negative Negative [facility] INTERNAL KIT QC Pass Pass [facility] KIT LOT NUMBER POC [id number] [facility] KIT EXPIRATION DATE POC 08/08/2020 [facility] Urine 06/20/2019 9:32 AM FOAMING MACHINE OPERATOR Renuka Cerda NP POINT OF CARE T JOSSELYN Performing Organization Address City/[facility]/ZIP Co de Phone Number [facility] CLIA# [id number] [address] [place] [address] documented in this encounter Visit Diagnoses Diagnosis Amenorrhea- Primary Absence of menstruation Acanthosis Acquired acanthosis nigricans Screening for condition Screening for unspecified condition documented in this encounter
--- OUTSIDE RECORDS SUMMARY | 2024-08-16 01:53 | XMS_ITS | Encounter Summary ---
Author Organization [facility] Address [address] [place] [address] Care Team Providers Care Cork Insulation Setter Name Role Phone Unavailable Primary Care Provider Unavailabl e Encounter Details Date Type Department Care Team (Late st Contact Info) Description 06/22/2019 Orders Only [facility] [employer] [place] [address] [place] [address] Renuka Cerda, [place] [address] [facility] [address] [place] [address] Vitamin D deficiency (Primary Dx) Social History Tobacco Use Types [...] as of this encounter Visit Diagnoses Diagnosis Vitamin D deficiency- Primary Unspecified vitamin D deficiency documented in this encounter
--- OUTSIDE RECORDS SUMMARY | 2024-08-16 01:53 | XMS_ITS | Encounter Summary ---
Author Organization [facility] Address [address] [place] [address] Care Team Providers Care Lidder Name Role Phone Unavailable Primary Care Provider Unavailabl e Encounter Details Date Type Department Care Team (Late st Contact Info) Description 04/25/2024 External Device Data [facility] ABSTRACTION Provider, Abstract [...]
--- OUTSIDE RECORDS SUMMARY | 2024-08-16 06:58 | XMS_ITS | Encounter Summary ---
Author Organization [facility] Address [address] [place] [address] Care Team Providers Care Stitchdowns Toe Former Name Role Phone Unavailable Primary Care Provider Unavailabl e Encounter Details Date Type Department Care Team (Late st Contact Info) Description 06/22/2019 Orders Only [facility] [place] [address] [place] [address] Renuka Cerda, [place] [address] [facility] [address] [place] [address] Vitamin D deficiency (Primary Dx) [...]
--- OUTSIDE RECORDS SUMMARY | 2024-08-16 06:58 | XMS_ITS | Encounter Summary ---
Author Organization [facility] Address [address] [place] [address] Care Team Providers Care Global Sales Executive Name Role Phone Unavailable Primary Care Provider [...]
--- OUTSIDE RECORDS SUMMARY | 2024-08-16 06:58 | XMS_ITS | Encounter Summary ---
Author Organization [facility] Address [address] Hintonn: Epic Prelude ADT [place] BOSS [address] Care Team Providers Care Lead Injection Mold Technician Name Role Phone Unavailable Primary Care [...]
--- OUTSIDE RECORDS SUMMARY | 2024-08-16 06:58 | XMS_ITS | Encounter Summary ---
Author Organization [facility] Address [address] [place] [address] Care Team Providers Care Resident Assistant Name Role Phone Unavailable Primary Care Provider [...]
--- OUTSIDE RECORDS SUMMARY | 2024-08-16 06:58 | XMS_ITS | Encounter Summary ---
Author Organization [facility] Address [address] [place] [address] Care Team Providers Care It Sales Representative Name Role Phone Unavailable Primary Care Provider Unavailabl e Reason for Visit * Reason Comments Contraception Encounter Details Date Type Department Care Team (Late st Contact Info) Description 06/20/2019 9:00 AM COMPUTATIONAL CHEMIST Office Visit [facility] at Work [employer] [place] [address] [place] [address] Renuka Cerda, [place] [address] [facility] [address] [place] [address] Amenorrhea (Primary Dx); Acanthosis; Screening [...] Comments Blood Pressure 116/76 06/20/2019 9:01 AM COMPUTATIONAL CHEMIST Pulse 76 06/20/2019 9:01 AM COMPUTATIONAL CHEMIST Temperature 36.2 ??C (97.2 ??F) 06/20/2019 9:01 AM CS T Respiratory Rate 18 06/20/2019 9:01 AM COMPUTATIONAL CHEMIST Oxygen Saturation 99% 06/20/2019 9:01 AM COMPUTATIONAL CHEMIST Inhaled Oxygen Concentration - - Weight 114.3 kg (252 lb) 06/20/2019 9:01 AM COMPUTATIONAL CHEMIST Height 162.6 cm (5' 4 ) 06/20/2019 9:01 AM COMPUTATIONAL CHEMIST Body Mass Index 43.26 06/20/2019 9:01 AM COMPUTATIONAL CHEMIST Body Mass Index Percentile 99.75% 06/20/2019 9:0 1 AM COMPUTATIONAL CHEMIST Growth Chart: CDC (Girls, 2- 20 Years) [...] he PCP diagnosed her with PCOS but DISC INSPECTOR did labs (last seen 1 year ago) [...] computerized patient record. [facility] [address] Care Providers: No care prepared foods production team member to display No Patient Care Coordination Note [...] KIT QC Pass Pass KIT LOT NUMBER [id number] KIT EXPIRATION DATE 08/08/2020 ASSESSMENT and PLAN: [...] remember to take daily. Last seen by DISC INSPECTOR 1 year ago. Pelvic US, obtain old records for labs. Does not have acne. Preg neg. Acanthosis- check HgA1C, last labs over 1 year ago. Spoke with mother and pt regarding POC, agreeable. UTATIONAL CHEMIST documented in this encounter Miscellaneous Notes * Patient Instructions - Renuka Cerda NP - 06/20/2019 9:33 AM COMPUTATIONAL CHEMIST Images from the original note were not included. My Digital Life. Combination Control Pills: Care Instructions Your Care [...] before you use any other medicines, including yoft-hds-xfrgtby medicines,vitamins, herbal products, and supplements. control hormones [...] Where can you learn more? Go to https://[email or web address]/patientEd Enter Z218 in the search box to learn more about Combination Control Pills: Care Instructions. Current as of: January 04, 2019 Content Version: 12.2 ?? 0627-2528 SocialDiabetes. Care instructions adapted under license by your healthcare professional. If you have questions about a medical condition or this instruction, always ask your healthcare professional. These instructions may not represent the values of this healthcare organization. SocialDiabetes disclaims any warranty or liability for your use of this information. UTATIONAL CHEMIST documented in this encounter Plan of Treatment Not on file documented as of this encounter Procedures Procedure Name Priority Date/Time Associated Diagnosis Comments CBC WITH DIFFERENTIAL Routine 06/20/2019 9:33 AM COMPUTATIONAL CHEMIST Screening for condition VITAMIN D 25 HYDROXY Routine 06/20/2019 9:33 AM COMPUTATIONAL CHEMIST Screening for condition TSH Routine 06/20/2019 9:33 AM COMPUTATIONAL CHEMIST Screening for condition HEMOGLOBIN A1C Routine 06/20/2019 9:33 AM COMPUTATIONAL CHEMIST Acanthosis COMPREHENSIVE METABOLIC PANEL Routine 06/20/2019 9:33 AM COMPUTATIONAL CHEMIST Screening for condition POC , URINE Routine 06/20/2019 9:32 AM COMPUTATIONAL CHEMIST Amenorrhea documented in this encounter Results * HEMOGLOBIN A1C (06/20/2019 9:33 AM COMPUTATIONAL CHEMIST) HEMOGLOBIN A1C 5.1 4.8 - 5.6 % [facility] Comment: ? Prediabetes: 5.7 - 6.4 ? Diabetes: >6.4 ? Glycemic control for adults with diabetes: <7.0 Blood 06/20/2019 9:33 AM COMPUTATIONAL CHEMIST 06/20/2019 Narrative [facility] - 06/21/2019 4:35 AM COMPUTATIONAL CHEMIST Performed at: ??01 - [facility] [address] ??[id number] [employer]: Akash Tomlinson PhD, Phone: ??[phone] Renuka Cerda NP CHEMISTRY ORDER ALMAZ [facility] [phone] * (ABNORMAL) VITAMIN D 25 HYDROXY (06/20/2019 9:33 AM COMPUTATIONAL CHEMIST) VITAMIN D 25 HYDROXY 11.5(L) 30.0 - 100.0 ng/mL [facility] Comment: Vitamin D deficiency has been defined by the [place] of Medicine and an Endocrine Society practice guideline as a level of serum 25-OH vitamin D less than 20 ng/mL (1,2). The Endocrine Society went on to further define vitamin D insufficiency as a level between 21 and 29 ng/mL (2). 1. IOM ([place] of Medicine). 2010. Dietary reference ?? intakes for calcium and D. [place]: The ?? National Academies Press. 2. Thanh MF, Kathy NC, Redd MURRAY, et al. ?? Evaluation, treatment, and prevention of vitamin D ?? deficiency: an Endocrine Society clinical practice ?? guideline. JCEM. 2010; 96):1911-30. Blood 06/20/2019 9:33 AM COMPUTATIONAL CHEMIST 06/20/2019 Narrative [facility] - 06/21/2019 6:36 AM COMPUTATIONAL CHEMIST Performed at: ??01 - [facility] ??[id number] [employer]: Akash Tomlinson PhD, Phone: ??[phone] Renuka Cerda NP CHEMISTRY ORDER ALMAZ Performing Organization Address [facility] de Phone Number [facility] [phone] * (ABNORMAL) TSH (06/20/2019 9:33 AM COMPUTATIONAL CHEMIST) TSH 4.910(H) 0.450 - 4.500 uIU/mL [facility] Blood 06/20/2019 9:33 AM COMPUTATIONAL CHEMIST 06/20/2019 Narrative [facility] - 06/21/2019 6:36 AM COMPUTATIONAL CHEMIST Performed at: ?? - [facility] ??[id number] [employer]: Akash Tomlinson PhD, Phone: ??[phone] Renuka Cerda NP CHEMISTRY ORDER ALMAZ Performing Organization Address [facility] de Phone Number [facility] [phone] * (ABNORMAL) COMPREHENSIVE METABOLIC PANEL (06/20/2019 9:33 AM COMPUTATIONAL CHEMIST) GLUCOSE 87 65 - 99 mg/dL [facility] Comment: Specimen received in contact with cells. [...] IU/L [facility] Blood 06/20/2019 9:33 AM COMPUTATIONAL CHEMIST 06/20/2019 Narrative [facility] - 06/21/2019 5:35 AM COMPUTATIONAL CHEMIST Performed at: ?? - [facility] [address] ??[id number] [employer]: Akash Tomlinson PhD, Phone: ??[phone] Renuka Lesley Cerda UNDERGROUND CONDUIT INSTALLER CHEMISTRY ORDER ALMAZ [facility] [phone] * CBC WITH DIFFERENTIAL (06/20/2019 9:33 AM COMPUTATIONAL CHEMIST) WBC 8.8 3.4 - 10.8 x10E3/uL [facility] [...] x10E3/uL [facility] Blood 06/20/2019 9:33 AM COMPUTATIONAL CHEMIST 06/20/2019 Narrative [facility] - 06/21/2019 4:35 AM COMPUTATIONAL CHEMIST Performed at: ??01 - [facility] ??[id number] [employer]: Akash Tomlinson PhD, Phone: ??[phone] Renuka Cerda NP HEMATOLOGY [place] [facility] [phone] * POC , URINE (06/20/2019 9:32 AM COMPUTATIONAL CHEMIST) HCG QUAL URINE Negative Negative [facility] INTERNAL KIT QC Pass Pass [facility] KIT LOT NUMBER POC [id number] [facility] KIT EXPIRATION DATE POC 08/08/[address] [facility] Urine 06/20/2019 9:32 AM COMPUTATIONAL CHEMIST Renuka Cerda NP POINT OF CARE T JOSSELYN Performing Organization Address [facility]/ZIP Co de Phone Number [facility] CLIA# [id number] [address] [place] [address] documented in this encounter Visit Diagnoses Diagnosis Amenorrhea- Primary Absence of menstruation Acanthosis Acquired acanthosis nigricans Screening for condition Screening for unspecified condition documented in this encounter
--- OUTSIDE RECORDS SUMMARY | 2024-08-16 06:58 | XMS_ITS | Clinical Summary ---
Author Organization [facility] Address [address] [place] [address] Care Team Providers Care Raise Driller Name Role Phone Cathy Liao MD Primary Care Provider [phone] Allergies Active Allergy Reactions Criticality Noted Date [...] HPV VACCINES Completed 05/15/2016, 2013 Care Teams Raise Driller Relationship Specialty Start Date End Date Cathy Liao MD [address] [place] [address] PCP - General Internal Medicine 04/28/24
--- OUTSIDE RECORDS SUMMARY | 2024-08-16 06:58 | XMS_ITS | Encounter Summary ---
Author Organization [facility] Address [address] [place] [address] Care Team Providers Care Cash Controller Name Role Phone Unavailable Primary Care Provider [...] Description 03/02/2024 7:30 AM CDT Office Visit [facility] at Work [employer] [place] [address] [place] [address] Tiffani Lopez, ANP [address] [facility] Mirella Fern[facility]dez [facility] [address] [place] [address] Abnormal LFTs (liver function tests) [...] improvement. Advised LFT elevated and dx with [place]. Stopped taking tylenol. Returned to ER for difficultly swallowing fluids and ST pain. Treated with oral steroids and augmentin with improvement. No fever since February 20. Seen at [facility] for each visit. No records available at time of visit. Male partner is without illness. Lives with boyfriend. 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 No known [...] PANEL 5. PCOS (polycystic ovarian syndrome) Recommend [facility] for preventive visits and consult. - HEMOGLOBIN [...] any ordered test results. ROXIE Cervantes 03/02/2024 [facility] AT [address] [address] Some of this encounter may have been transcribed using [employer] Naturally Speaking computerized voicerecognition without a human gimp buttonhole machine operator. This report may or may not have [...] - 03/02/2024 7:54 AM CDT Recommend see CHECK EMBOSSER for routine visits and to discuss the PCOS. For the nausea, get Famotidine ( PEPCID) 20 mg daily. Take daily for 2 weeks straight , then can cut back to as needed if you wish. Labs today. Hold off on taking tylenol until results known. Gynecology options in the [facility] Dr. Radha Higgins, Dr. Vashti Luther [address] [place] [address] [email or web address] Dr. Negrito Molina, Dr. Harsh Barragan, Dr. Pablo Hatfield, [address] [place] [address] Dr. Lilia Choi MD [place] [facility] [address] [facility] [address] [place] [address] Dr. La Perez [address] [place] [id number] documented in this encounter Plan of Treatment [...] VITAMIN B12 399 200 - 1100 pg/mL [facility] Comment: Please Note: Although the reference range for vitamin B12 is 200-1100 pg/mL, it has been reported that between 5 and 10% of patients with values between 200 and 400 pg/mL may experience neuropsychiatric and hematologic abnormalities due to occult B12 deficiency; less than 1% of patients with values above 400 pg/mL will have symptoms. Test Performed at: [employer] [address] ??[phone] Tia Calabrese MD Blood 03/02/2024 8:15 AM CDT 03/03/2024 5:06 AM CDT Tiffani Lopez [facility]STRY [facility]ABLES [facility] [phone] [employer] [address] [place] [address] * (ABNORMAL) VITAMIN D 25 HYDROXY (03/02/2024 8:15 AM CDT) VITAMIN D, 25 OH, TOTAL 18(L) 30 - 100 ng/mL [facility] Comment: Vitamin D Status ? 25-OH Vitamin D: Deficiency: ?<20 ng/mL Insufficiency: ? 20 - 29 ng/mL Optimal: ? > or = 30 ng/mL For 25-OH Vitamin D testing on patients on D2-supplementation and patients for whom quantitation of D2 and D3 fractions is required, the QuestAssureD(TM) 25-OH VIT D, (D2,D3), LC/MS/MS is recommended: order code [id number] (patients >2yrs). See Note 1 Note 1 For additional information, please refer to http://education.vitalclip/faq/ASQ642 (This link is being provided for informational/ educational purposes only.) Test Performed at: [facility] [address] [place] [address] ??[phone] Tia Calabrese MD Blood 03/02/2024 8:15 AM CDT 03/03/2024 5:06 AM CDT Tiffani Lopez [facility]ABLES [facility] [phone] [address] * HEMOGLOBIN A1C (03/02/2024 8:15 AM CDT) Pathologist [facility] HEMOGLOBIN A1C 5.4 <5.7 % of total Hgb [facility] Comment: For the purpose of screening for the presence of diabetes: <5.7% ? Consistent with the absence of diabetes 5.7-6.4% ?Consistent with increased risk for diabetes ?(prediabetes) > or =6.5% ??Consistent with diabetes This assay result is consistent with a decreased risk of diabetes. Currently, no consensus exists regarding use of hemoglobin A1c for diagnosis of diabetes in children. According to [place] Diabetes Association (ADA) guidelines, hemoglobin A1c <7.0% represents optimal control in non- diabetic patients. Different metrics may apply to specific patient populations. Standards of Medical Care in Diabetes(ADA). ?? ESTIMATED AVERAGE GLUCOSE (MG/DL) 108 mg/dL [facility] ESTIMATED AVERAGE GLUCOSE (MMOL/L) 6.0 mmol/L [facility] Comment: ? This test was performed on the Aristeo gurmeet c503 platform. Effective 10/25/23, a change in test platforms from the [employer] Occupational Therapist Home Based to the Aristeo gurmeet c503 may have shifted HbA1c results compared to historical results. Based on laboratory validation testing conducted at [employer], the Aristeo platform relative to the Arciniega [...] platforms is not recommended. Test Performed at: [facility] [address] [place] ??[address] Tia Calabrese MD Blood 03/02/2024 8:15 AM CDT 03/03/2024 5:06 AM CDT Tiffani FAUSTIN [facility] [phone] [facility] [address] [place] [address] * TSH REFLEXIVE (03/02/2024 8:15 AM CDT) TSH 3.40 mIU/L [facility] Comment: ?Reference Range ?> or = 20 Years ??0.40-4.50 ? Ranges ?First trimester ?0.26-2.66 ?Second trimester ?? 0.55-2.73 ?Third trimester ?0.43-2.91 Test Performed at: [facility] ??[phone] Tia Calabrese MD Blood 03/02/2024 8:15 AM CDT 03/03/2024 5:06 AM CDT Tiffani Lopez [facility]STRY [facility]ABLES [facility] [phone] [facility] [employer] [address] * (ABNORMAL) LIPID PANEL (03/02/2024 8:15 AM CDT) CHOLESTEROL 210(H) <200 mg/dL [facility] HDL 45(L) > OR = 50 mg/dL [facility] TRIGLYCERIDE 276(H) <150 mg/dL [facility] Comment: If a non-fasting specimen was collected, consider repeat triglyceride testing on a fasting specimen if clinically indicated. Fiona et al. J. of Clin. Lipidol. 2015;9:129-169. LDL CALCULATED 123(H) mg/dL (calc) [facility] Comment: Reference range: <100 Desirable range <100 mg/dL for primary prevention; ?? <70 mg/dL for patients with CHD or diabetic patients with > or = 2 CHD risk factors. LDL-C is now calculated using the Rosalino calculation, which is a validated novel method providing better accuracy than the Friedewald equation in the estimation of LDL-C. Forest GOODMAN et al. MAGDI. 2013;310(19): 6209-1715 (http://education.vitalclip/faq/PBN021) CHOL/HDL RATIO 4.7 <5.0 (calc) [facility] NON-HDL CHOLESTEROL 165(H) <130 mg/dL (calc) [facility] Comment: For patients with diabetes plus 1 major ASCVD risk factor, treating to a non-HDL-C goal of <100 mg/dL (LDL-C of <70 mg/dL) is considered a therapeutic option. Test Performed at: [facility] ??[phone] Tia Calabrese MD Blood 03/02/2024 8:15 AM CDT 03/03/2024 5:06 AM CDT Tiffani Lopez [facility] [phone] [facility] [employer] [address] * (ABNORMAL) CBC WITH DIFFERENTIAL (03/02/2024 8:15 [...] [facility] Comment: Test Performed at: [facility] [address] [place] ??[address] Tia Calabrese MD Blood 03/02/2024 8:15 AM CDT 03/03/2024 5:06 AM CDT Tiffani Lopez [facility] HEMATOLOGY ORDERABLE S [facility] [phone] [facility] [address] [place] [address] * (ABNORMAL) COMPREHENSIVE METABOLIC PANEL (03/02/2024 8:15 [...] [facility] Comment: Test Performed at: [address] ??[phone] Tia Calabrese MD Blood 03/02/2024 8:15 AM CDT 03/03/2024 5:06 AM CDT Tiffani Lopez ANP [facility]STRY [facility]LES [facility] [phone] [facility] [id number] [place] [address] * POC , URINE (03/02/2024 8:00 AM CDT) HCG QUAL URINE POC Negative Negative, Indeterminate [facility] INTERNAL KIT QC POC Pass Pass [facility] KIT LOT NUMBER POC [id number] [facility] KIT EXP DATE POC 03/07/2025 [facility] Urine 03/02/2024 8:00 AM CDT Tiffani Lopez ANP POINT OF CARE TESTIN G [facility] CLIA# [id number] [address] [place] [address] documented in this encounter Visit Diagnoses Diagnosis [...]
--- OUTSIDE RECORDS SUMMARY | 2024-08-16 06:58 | XMS_ITS | Encounter Summary ---
Author Organization [facility] Address [address] [place] [address] Care Team Providers Care Direct Service Professional Name Role Phone Unavailable Primary Care Provider [...]
--- OUTSIDE RECORDS SUMMARY | 2024-08-16 06:58 | XMS_ITS | Encounter Summary ---
Author Organization [facility] Address [address] [place] [address] Care Team Providers Care Top Loader Name Role Phone Unavailable Primary Care Provider Unavailabl e Reason for Visit * Reason Comments Depression Results Nausea Encounter Details Date Type Department Care Team (Late st Contact Info) Description 04/03/2024 8:00 AM CDT Office Visit [facility] at Work [employer] [place] [address] [place] [address] Tiffani Lopez, ANP [address] [facility] Mirella Pradeep [facility] [address] [place] [address] Dyspepsia (Primary Dx); Mixed hyperlipidemia; Need for yjmbifibdf-kuosdgb-bq rtussis (Tdap) vaccine; Vitamin D deficiency; Morbid [...] GERD. 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 Offered WWT newscast producer. 3. Need for intsdragxa-thlhzlf-airgugrwu (Tdap) vaccine - (ADACEL/BOOSTRIX)(10 YR UP) TDAP [...] any ordered test results. ROXIE Cervantes 04/03/2024 [facility] [employer] [address] [address] Some of this encounter may have been transcribed using RESPACE computerized voicerecognition without a human aircraft detail draftsperson. This report may or may not have [...] features foods eaten in [place], [place], southern [place] and [place], and other countries along the [...] lunch or dinner instead of red meat. Graff the fish with olive oil, and broil [...] having it fried or breaded. Ask your surveillance observer to have your meals prepared with olive [...] side salad or grilled vegetables instead of bulgarian fries or chips. Where can you learn more? Go to https://www.healthwise.net/patientEd Enter O407 in the search box to learn more about Learning About the Mediterranean Diet. Current as of: June 15, 2018 Content Version: 12.2 ?? 8668-4974 unrival. Care instructions adapted under license by your healthcare professional. If you have questions about a medical condition or this instruction, always ask your healthcare professional. These instructions may not represent the values of this healthcare organization. [employer]rival disclaims any warranty or liability for your use of this information. documented in this encounter Plan of Treatment Not on file documented as of this encounter Visit Diagnoses Diagnosis Dyspepsia- Primary Dyspepsia and other specified disorders of function of stomach Mixed hyperlipidemia Need for ndadgbvpzj-srvglpw-bakcybqnc (Tdap) vaccine Need for prophylactic vaccination with combined znqqxrsgfl-hautkte-opzszuloh (DTP) vaccine Vitamin D deficiency Unspecified vitamin D deficiency Morbid obesity with body mass index of 40.0-49.9 Mild depression Depressive disorder, not elsewhere classified documented in this encounter Additional Health Concerns Assessment Noted Time PHQ-9 Depression Total Score: 2 04/03/20 24 8:00 AM CDT documented as of this encounter
--- OUTSIDE RECORDS SUMMARY | 2024-08-16 06:58 | XMS_ITS | Encounter Summary ---
Author Organization [facility] Address [address] [place] [address] Care Team Providers Care News Photographer Name Role Phone Unavailable Primary Care Provider [...]
--- OUTSIDE RECORDS SUMMARY | 2024-08-16 06:58 | XMS_ITS | Encounter Summary ---
Author Organization [facility] Address [address] [place] [address] Care Team Providers Care Printing Services Coordinator Name Role Phone Unavailable Primary Care Provider [...]
--- OUTSIDE RECORDS SUMMARY | 2024-08-16 06:58 | XMS_ITS | Encounter Summary ---
Author Organization [facility] Address [address] [place] [address] Care Team Providers Care Timber Management Specialist Name Role Phone Unavailable Primary Care Provider [...]
--- OUTSIDE RECORDS SUMMARY | 2024-08-16 06:58 | XMS_ITS | Encounter Summary ---
Author Organization [facility] Address [address] [place] [address] Care Team Providers Care Astronaut Mission Specialist Name Role Phone Unavailable Primary Care Provider Unavailabl e Reason for Visit * Reason Comments Abdominal Pain Encounter Details Date Type Department Care Team (Late st Contact Info) Description 04/28/2021 9:00 AM CDT Office Visit [facility] [employer] [place] [address] [place] [address] Wesley Morrison MD NO ADDRESS [...] KIT QC Pass Pass KIT LOT NUMBER [id number] KIT EXPIRATION DATE 06/08/2022 ASSESSMENT AND PLAN: [...] AM CDT) HCG QUAL URINE Negative Negative [facility] [place] INTERNAL KIT QC Pass Pass [facility] [place] KIT LOT NUMBER POC [id number] [facility] [place] KIT EXPIRATION DATE POC 06/08/2022 [facility] [place] Urine 04/28/2021 9:16 AM CDT Wesley Morrison MD POINT OF CARE TESTIN G [facility]# [id number] [address] [place] [address] documented in this encounter Visit Diagnoses Diagnosis Epigastric abdominal pain- Primary Abdominal pain, epigastric documented in this encounter
--- OUTSIDE RECORDS SUMMARY | 2024-08-16 06:58 | XMS_ITS | Encounter Summary ---
Author Organization [employer] Address [address] [place] [address] Care Team Providers Care Government Affairs Manager Name Role Phone Cathy Liao MD Primary Care Provider [phone] Reason for Referral * Eval and Treat (Routine) - Open Specialty Diagnoses / Procedures Referred By Contac t Referred To Contact Diagnoses Nocturnal hypoxemia Procedures IA OFFICE/OUTPATIENT ESTABLISHED MOD MDM 30 MIN IA OFFICE/OUTPATIENT NEW MODERATE MDM 45 MINUTES Cathy Liao MD [address] [place] [address] Referral ID Status Reason Start Date Expiration Date Visits Re quested Visits Authorized [id number] Open 04/28/2024 04/28/2025 1 1 Reason for Visit * Reason Comments Hospital Follow Up Patient had pneumoni a, and was in the hospital Sept 6-9. And her breathing is not quite back to normal. 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 Does not feel the detergent/ chemicals make [...] documented as of this encounter Care Teams Government Affairs Manager Relationship Specialty Start Date End Date Cathy Liao MD [address] [place] [address] [place] [address] PCP - General Internal Medicine 04/28/24 documented as of this encounter
--- OUTSIDE RECORDS SUMMARY | 2024-08-16 06:58 | XMS_ITS | Encounter Summary ---
[facility] Organization [facility] Address [address] [place] [address] Care Team Providers Care Nursing Program Director Name Role Phone Unavailable Primary Care Provider Unavailabl e Reason for Visit * Reason Onset Date Comments Results 07/27/2019 Encounter Details Date Type Department Care Team (Late st Contact Info) Description 07/27/2019 Telephone [facility] at [facility] [employer] [place] [address] [place] [address] [place] [phone] [facility] [address] [place] [address] Results Social History Tobacco Use Types Packs/Day Years Used Date Smoking Tobacco: Never Smokeless Tobacco: Never Alcohol Use Standard Drinks/Week Comments Never 0 (1 standard drink = 0.6 oz pur e alcohol) Sex and Gender Information Value Date Recorded Sex Assigned at Not on file Gender Identity Not on file Sexual Orientation Not on file documented as of this encounter Miscellaneous Notes * Telephone Encounter - Cristiano Keyla - 07/27/2019 10:04 AM CST Phone number in pt's chart has been disconnected. ----- Message from Renuka Cerda NP sent at 07/26/2019 3:19 PM FIELD OBSERVER ----- Regarding: Record review Please call mother and let her know I have reviewed her records from Dr Debra Blake. It looks like she has not had her pelvic US done yet. Looking at everything I believe she would benefit from seeing an rn er. Would her mother be agreeable for a referral to evaluate her acanthosis nigricans and amenorrhea. Her labs done so far were negative in the record review and here in the clinic. She may need further testing, cortisol levels etc. D OBSERVER documented in this encounter Plan of Treatment Not on file documented as of this encounter Visit Diagnoses Not on filedocumented in this encounter
--- OUTSIDE RECORDS SUMMARY | 2024-08-16 06:58 | XMS_ITS | Encounter Summary ---
Author Organization [facility] Address [address] [place] [address] Care Team Providers Care Emergency Services Dispatcher Name Role Phone Unavailable Primary Care Provider [...]
--- OUTSIDE RECORDS SUMMARY | 2024-08-16 06:58 | XMS_ITS | Encounter Summary ---
Author Organization [facility] Address [address] [place] [address] Care Team Providers Care Brush Hand Name Role Phone Unavailable Primary Care Provider [...]
== END 2024-08-09 12:19 | disposition home or self-care (01) ==
PROVIDERS: Physician Assistant; Emergency Provider Emergency Medicine
DX: U07.1 COVID-19 (principal); F17.290 Nicotine dependence, other tobacco product, uncomplicated
CPT/HCPCS: 87636; 93005; 96372; 99283; A9270; J1885

== ENCOUNTER 2024-11-10 20:38 | Emergency (ER) | payer OTHER, SELFPAY ==
--- OUTSIDE RECORDS SUMMARY | 2024-11-10 20:41 | XMS_ITS | Clinical Summary ---
Author Organization [facility] Address [address] [place] [address] Care Team Providers Care Search Marketing Coordinator Name Role Phone Cathy Liao MD Primary Care Provider [phone] Allergies Active Allergy Reactions Criticality Noted Date Comments Ondansetron Rash Low 03/02/2024 Red Dye Nausea and Vomiting Low 03/02/2024 Medications famotidine (PEPCID) 20 mg tabletIndications :Nausea Take 1 Tablet (20 mg) by mouth daily. 4 Active ergocalciferol (VITAMIN D2) 50,000 unit capsule Take 1 Capsule (50,000 Units) by mouth every 7 days. Take ONCE WEEKLY for total of 8 weeks. Take in addition to daily Vitamin D 3 supplement. 12 Capsule Active cholecalciferol (Vitamin D3) 25 mcg (1,000 unit) Tablet, ChewableIndicatio ns:Vitamin D deficiency Take 3 Tablets (3,000 Units) by mouth daily. 4 Active albuterol sulfate HFA 90 mcg/actuation aerosol inhalerIndication s:Mild intermittent reactive airway disease without complication Take 2 Puffs by inhalation every 6 hours as needed for Shortness of Breath. 8.5 Gram 4 Active Active Problems Problem Noted Date Diagnosed Date Morbid obesity with body mass index of 40.0-49.9 04/03/2024 Dyspepsia 04/03/2024 Mild depression 04/03/2024 Vitamin D deficiency 03/06/2024 Amenorrhea 06/20/2019 Acanthosis 06/20/2019 Encounters Date Type Department Care Team Description 10/25/2024 External Device Data [facility]STRA[facility] Provider, Abstract 10/25/2024 External Device Data [facility] Provider, Abstract 10/14/2024 External Device Data [facility] Provider, Abstract 10/13/2024 External Device Data [facility] Provider, Abstract 10/10/2024 External Device Data [facility] Provider, Abstract 09/26/2024 External Device Data [facility] Provider, Abstract 08/31/2024 External Device Data [facility] Provider, Abstract 08/29/2024 External Device Data [facility] Provider, Abstract from Last 3 Months Immunizations Immunization Administration Dates Next Due (ADACEL/BOOSTRIX)(10 YR UP) [...] alcohol) 2-3 alcoholic mixed drinks / month Comments No Sex and Gender Information Value Date Recorded Sex Assigned at Not on file 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 Gender Identity Not on file Sexual Orientation Not on file Last Filed Vital Signs Vital Sign Reading Time Taken Comments Blood Pressure 118/68 04/28/2024 10:52 AM CDT Pulse 60 04/28/2024 10:52 AM CDT Temperature 36.8 C (98.3 F) 04/28/2024 10:52 AM CDT Respiratory Rate 16 04/28/2024 10:52 AM CDT Oxygen Saturation 98% 04/28/2024 10:52 AM CDT Inhaled Oxygen Concentration - - Weight 113.4 kg (250 lb) 04/28/2024 10:52 AM CDT Height 162.6 cm (5' 4 ) 04/28/2024 10:52 AM CDT Body Mass Index 42.91 04/28/2024 10:52 AM CDT Plan of Treatment Upcoming Encounters Date Type Department Care Team (Late st Contact Info) Description 11/14/2024 10:00 AM CDT Office Visit [facility] at [employer] [place] [address] [place] [address] Tiffani Lopez, ANP [address] [address] [facility] [address] [place] [address] Health Maintenance Due Date Last Done Comments CHLAMYDIA SCREENING (ANNUAL) 11-24 YEARS 2013 CERVICAL CANCER SCREENING 2023 HPV/Cotest (21-29) 2023 PAP SMEAR 2023 INFLUENZA VACCINE (#1) 2024 04/28/2021, 2015 DTAP/TDAP/TD VACCINES (8 - T d or Tdap) 04/03/2034 04/03/2024, 2013, 03/08/2007, Additional history exists HEPATITIS B VACCINES Completed 01/09/2003, 2002, 2002 HPV VACCINES Completed 05/15/2016, 2013 Insurance ALLEGIANCE OPEN ACCESS Care Teams Search Marketing Coordinator Relationship Specialty Start Date End Date Cathy Liao MD [address] [place] [address] [place] [address] PCP - General Internal Medicine 04/28/24
[2024-11-10 20:42] VITALS: BP 148/74; PULSE 87; RESP 14; TEMP 37.1; O2SAT 99
--- OUTSIDE RECORDS SUMMARY | 2024-11-10 21:07 | XMS_ITS | Clinical Summary ---
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 Gender Identity Not on file Sexual Orientation [...] Description 11/14/2024 10:00 AM CDT Office Visit [facility] [employer] [place] [address] [place] [place] [address] Tiffani Lopez, ANP [address] [address] [facility] [address] [place] [address] Health Maintenance Due Date Last [...] 2013 Insurance ALLEGIANCE OPEN ACCESS Care Teams Public Stenographer Relationship Specialty Start Date End Date Cathy Liao MD [address] [place] [address] [place] [address] PCP - General Internal Medicine 04/28/24
--- NOTE | 2024-11-10 22:07 | ED_ITS ---
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 She reports ?it feels like I used cheap toilet paper to wipe. Pt reports she looked at her vagina in the mirror and endorses lots of little white circles. She reports the pain has gotten worse over the last 2-3 days. Patient denies any history of sexually transmitted diseases, urinary symptoms, abnormal vaginal discharge, back pain, abdominal pain. Related Data Home Medications ?Medication ?Instructions ?Recorded ?Confirmed ?Last Taken ?Type Vitamin D3 50,000 units PO WEEKLY 04/15/24 04/16/24 04/10/24 History famotidine 20 mg PO DAILY 04/15/24 04/15/24 Unknown History Allergies Allergy/AdvReac Type Severity Reaction Status Date / Time ondansetron (From Zofran) AdvReac Rash Verified 11/10/24 20:39 Review of Systems Review of Systems: All systems reviewed & are unremarkable except as noted in HPI and below PMFSH Past Medical History Medical History No pertinent past medical history Surgical History Surgical History No pertinent past surgical history Family History Family History Grandparent Breast cancer Diabetes mellitus Father Diabetes mellitus Mother Kidney disease Social History Social History Smoking status: Current every day smoker Tobacco type: e-cigarettes/vaping Alcohol intake: never Substance use: current Substance use type: marijuana Last use: 04/14/2024 Do You Feel Safe in your Home?: Yes Lack of Transportation: No Lack of Food: Never True Current Housing: I Have Housing Concerned About Future Housing: No Difficulty Paying Gas/Electric Bills: No Difficulty Paying for Meds: No Currently Unemployed: No Education: Grade School Difficulty w/ Childcare or Family Care: No Spiritual care concerns: No Exam Narrative: GENERAL: Well appearing, well-nourished, non-toxic, in no acute distress. HEAD: Normocephalic, atraumatic. NECK: Supple. No adenopathy, no masses. RESPIRATORY: Airway patent, respirations nonlabored. Clear to auscultation bilaterally, no rales, rhonchi, wheezing. CARDIOVASCULAR: Regular rate and rhythm without murmurs, rubs, or gallops. Peripheral pulses 2+ and equal bilaterally. ABDOMINAL: Soft, nontender, nondistended, no hepatosplenomegaly. Normoactive BS. MUSCULOSKELETAL: Moves all extremities. Strength/ROM intact without gross deformities. SKIN: Warm, dry, normal color. No rashes. NEURO: A&O X3. Speech clear. Cranial nerves II-XII intact. No ataxic movements. PSYCHIATRIC: Appropriate mood and affect. Normal interaction. : multiple circular lesions on pt's genitals, no areas of excoriation or excessively redness Course Vital Signs Vital signs: Vital Signs Temperature 37.1 C 11/10/24 20:42 Pulse Rate 87 11/10/24 20:42 Respiratory Rate 14 11/10/24 20:42 Blood Pressure 148/74 H 11/10/24 20:42 Pulse Oximetry 99 11/10/24 20:42 Oxygen Delivery Room Air 11/10/24 20:42 Temperature 37.1 C 11/10/24 20:42 Pulse Rate 87 11/10/24 20:42 Respiratory Rate 14 11/10/24 20:42 Blood Pressure 148/74 H 11/10/24 20:42 Pulse Oximetry 99 11/10/24 20:42 Oxygen Delivery Room Air 11/10/24 20:42 MDM - Female Genitourinary MDM Narrative Medical decision making narrative: Patient is a 24-year-old female who presents to the ER with vaginal pain. She reports ?it feels like I used cheap toilet paper to wipe. Pt reports she looked at her vagina in the mirror and endorses lots of little white circles. She reports the pain has gotten worse over the last 2-3 days. Patient denies any history of sexually transmitted diseases, urinary symptoms, abnormal vaginal discharge, back pain, abdominal pain. Labs Ordered: Genital swab, UA Medications Ordered: Acyclovir 400 mg p.o., lidocaine topical ointment, Macrobid PO Diagnosis: Herpes genitalis, urinary tract infection Patient Education/Shared MDM: Results of examination shared with patient. She endorses improvement following numbing medication administration. Patient strongly advised to maintain hydration status upon discharge and follow-up with her PCP as soon as possible. She will be discharged home with a prescription for Acyclovir, Macrobid and topical lidocaine. Strict return precautions provided. Patient verbalized understanding and is in agreement with plan. Vital signs stable at time of discharge. All questions answered. Differential Diagnosis Differential diagnosis: Likely urinary tract infection, cyst of Bartholin's gland and other (herpes genitalis) Lab Data Attestation: I reviewed the patient's lab results. Labs: Lab Results 11/10/24 Range/Units 22:18 Urine Color Yellow (Yellow) Urine Appearance Cloudy H (Clear) Urine pH 6.5 (5.0-9.0) Ur Specific [place] 1.022 (1.001-1.035) Urine Protein Negative (Negative) mg/dL Urine Glucose (UA) Negative (Negative) mg/dL Urine Ketones Negative (Negative) mg/dL Ur Blood (Man) Negative (Negative) Urine Nitrate Negative (Negative) Urine Bilirubin Negative (Negative) Urine Urobilinogen 1.0 (<2.0) mg/dL Add Ur Microanalysis Reviewed Leukocyte Esterase Rfl 2+ H (Negative) AARON/UL Urine RBC 21-50 H (0-2) /hpf Urine WBC 11-20 H (0-3) /hpf Ur Squamous Epith Cells Few (Few) /hpf Urine Bacteria None seen /hpf Urine Casts 0-2 Discharge Plan Discharge Clinical Impression: Urinary tract infection, Herpes genitalia Patient Disposition: Home, Self-Care Condition: Stable Instructions: Antibiotic Form, Genital Herpes Infection (ED), Urinary Tract Infection in Women (ED) Additional Instructions: Please return to the ER with any worsening symptoms. Follow-up with primary care provider as soon as possible. Take all medications as prescribed, including regularly scheduled medications. Complete your for dose of antiviral and antibiotic. Patient Language: Burmese Prescriptions: New nitrofurantoin monohyd/m-cryst [Macrobid] 100 mg capsule 100 mg PO Q12H 5 Days Qty: 10 0RF Rx Instructions: must administer with a meal/food acyclovir 400 mg tablet 400 mg PO TID Qty: 30 0RF lidocaine 5 % ointment 1 applic topical QID PRN (Reason: skin irritation) Qty: 50 0RF No Action albuterol sulfate 90 mcg/actuation HFA aerosol inhaler 2 puff inhalation QID PRN (Reason: shortness of breath or wheezing) Qty: 6.7 0RF Vitamin D3 50,000 Units tablet 50,000 units PO WEEKLY Rx Instructions: TAKE ON MONDAYS famotidine 20 mg tablet 20 mg PO DAILY prednisone 10 mg tablet 10 mg PO DIRECTED Qty: 20 0RF Rx Instructions: see taper instructions 40 mg (4 tabs) x 2 days, then 30 mg (3 tabs) x 2 days, then 20 mg (2 tabs) x 2 days, then 10 mg (1 tab) x 2 days, stop levofloxacin 750 mg tablet 750 mg PO DAILY 5 Days Qty: 5 0RF Follow-up/Referrals: UNKNOWN,DOCTOR [Primary Care Provider] - Stand Alone Forms: Work/School Release IP Time of Disposition: 23:00
[2024-11-10] MEDS: ACYCLOVIR 400 MG TABLET PO (22:16)
[2024-11-10] MEDS: LIDOCAINE/PRILOCAINE CREAM 2.5-2.5% TUBE 1 EACH TOPICAL (22:17)
[2024-11-10 22:46] LABS: Add Urine Microscopic? YES; Appearance Urine Cloudy (Clear); Bacteria Urine None Seen /hpf; Bilirubin Urine Negative (Negative); Blood Urine Negative (Negative); Color Urine Yellow (Yellow); Glucose Urine UA Negative (Negative); Ketones Urine Negative (Negative); Leukocyte Esterase Ur 2+ LEU/UL (Negative); Need Manual Microscopic Reviewed; Nitrate Urine Negative (Negative); Non Pathogenic Casts 0-2; Protein Urine Negative (Negative); RBC Urine 21-50 /hpf (0-2); Specific Grav Ur 1.022 (1.001-1.035); Squamous Epithelial Cell Urine Few /hpf (Few); pH Urine 6.5 (5.0-9.0)
[2024-11-10] MEDS: NITROFURANTOIN MONOHYD MACROCR 100 MG CAP PO (23:07)
[2024-11-10 23:11] VITALS: BP 142/76; PULSE 70; RESP 16; O2SAT 98
== END 2024-11-10 23:13 | disposition home or self-care (01) ==
PROVIDERS: Emergency Provider Registered Nurse
DX: N39.0 Urinary tract infection, site not specified (principal); A60.04 Herpesviral vulvovaginitis; F17.290 Nicotine dependence, other tobacco product, uncomplicated
CPT/HCPCS: 81001; 87086; 99283; A9270

== ENCOUNTER 2024-11-30 10:41 | Emergency (ER) | payer OTHER, SELFPAY ==
--- NOTE | ~2024-11-30 | XR_ITS ---
XR chest 2V Ordering provider: Anh Garnett APRN History: 24 years Female with . cough . Comparison: April 14, 2024 FINDINGS: MEDIASTINUM: The cardiac silhouette is not enlarged. LUNGS: No infiltrates, effusions or pneumothorax. OTHER: No free air under the diaphragm. IMPRESSION: No acute cardiopulmonary pathology. Reviewed, dictated and finalized at location A.
[2024-11-30 10:44] VITALS: BP 140/83; PULSE 60; RESP 18; TEMP 36.8; O2SAT 98; O2SAT 99
[2024-11-30 11:18] LABS: Strep Group A RT-PCR NOT DETECTED (Negative)
[2024-11-30 11:46] VITALS: BP 135/63; PULSE 64; RESP 18; O2SAT 96
--- OUTSIDE RECORDS SUMMARY | 2024-11-30 12:05 | XMS_ITS | Clinical Summary ---
Author Organization [facility] [employer] Address [address] [place] [address] Care Team Providers Care Property Specialist Name Role Phone Cathy Liao MD Primary Care Provider Allergies Active Allergy Reactions Criticality Noted Date Comments Ondansetron Rash Low 03/02/2024 Red Dye Nausea and Vomiting Low 03/02/2024 Medications famotidine (PEPCID) 20 mg tabletIndication s:Nausea Take 1 Tablet (20 mg) by mouth daily. 4 Active ergocalciferol (VITAMIN D2) 50,000 unit capsule Take 1 Capsule (50,000 Units) by mouth every 7 days. Take ONCE WEEKLY for total of 8 weeks. Take in addition to daily Vitamin D 3 supplement. 12 Capsule 4 Active cholecalciferol (Vitamin D3) 25 mcg (1,000 unit) Tablet, ChewableIndicati ons:Vitamin D deficiency Take 3 Tablets (3,000 Units) by mouth daily. 4 Active albuterol sulfate HFA 90 mcg/actuation aerosol inhalerIndicatio ns:Mild intermittent reactive airway disease without complication Take 2 Puffs by inhalation every 6 hours as needed for Shortness of Breath. 8.5 Gram 4 Active acyclovir (ZOVIRAX) 400 mg tablet Take 800 mg by mouth 3 times daily. 5 Active lidocaine (XYLOCAINE) 5 % Ointment 5 Active famotidine (PEPCID) 20 mg tabletIndication s:Dyspepsia Take 2 Tablets (40 mg) by mouth daily in the morning. 60 Tablet 2 04/08/202 5 Active nitrofurantoin (MACROBID) 100 mg capsule Take 100 mg by mouth 2 times daily. 5 11/19/19 25 valACYclovir (Valtrex) 500 mg tabletIndication s:HSV-2 infection Take 1 Tablet (500 mg) by mouth 2 times daily for 7 days. As needed for outbreaks. 14 Tablet 5 11/22/19 25 Active Problems Problem Noted Date Diagnosed Date Morbid obesity with body mass index of 40.0-49.9 04/03/2024 Dyspepsia 04/03/2024 Mild depression 04/03/2024 Vitamin D deficiency 03/06/2024 Amenorrhea 06/20/2019 Acanthosis 06/20/2019 Encounters Date Type Department Care Team Description 11/21/2024 External Device Data [facility] Provider, Abstract 11/14/2024 10:00 AM CDT Office Visit [facility] at [facility] [employer] [address] [place] [address] Tiffani Lopez, ANP Dyspepsia (Primary Dx); Amenorrhea; Morbid obesity with body mass index of 40.0-49.9 ([facility]); HSV-2 infection - gential. 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 Gender Identity Not on file Sexual Orientation Not on file Last Filed Vital Signs Vital Sign Reading Time Taken Comments Blood Pressure 120/72 11/14/2024 10:10 AM CDT Pulse 88 11/14/2024 10:10 AM CDT Temperature 37.5 C (99.5 F) 11/14/2024 10:10 AM CDT Respiratory Rate 16 11/14/2024 10:10 AM CDT Oxygen Saturation 98% 11/14/2024 10:10 AM CDT Inhaled Oxygen Concentration - - Weight 121.6 kg (268 lb) 11/14/2024 10:10 AM CDT Height 162.6 cm (5' 4 ) 11/14/2024 10:10 AM CDT Body Mass Index 46 11/14/2024 10:10 AM CDT Plan of Treatment Upcoming Encounters Date Type Department Care Team (Late st Contact Info) Description 12/14/2024 9:00 AM CDT Office Visit [facility] at [facility] [employer] [place] [address] [address] Tiffani Lopez, ANP [address] [facility] [address] [facility] [address] [place] [address] Health Maintenance Due Date Last Done Comments CHLAMYDIA SCREENING (ANNUAL) 11-24 YEARS 2013 CERVICAL CANCER SCREENING 2023 HPV/Cotest (21-29) 2023 PAP SMEAR 2023 INFLUENZA VACCINE (#1) 2024 04/28/2021, 2015 DTAP/TDAP/TD VACCINES (8 - T d or Tdap) 04/03/2034 04/03/2024, 2013, 03/08/2007, Additional history exists HEPATITIS B VACCINES Completed 01/09/2003, 2002, 2002 HPV VACCINES Completed 05/15/2016, 2013 Procedures Procedure Name Priority Date/Time Associated Diagnosis Comments POC , URINE Routine 11/14/2024 11:00 AM CDT Amenorrhea from Last 3 Months Results * POC , URINE (11/14/2024 11:00 AM CDT) HCG QUAL URINE POC Negative Negative, Indeterminate [facility] KIT QC POC [place] Pass [facility] KIT LOT NUMBER POC [id number] [facility] KIT EXP DATE POC 03/07/2025 [facility] Urine 11/14/2024 11:0 0 AM CDT us Tiffani Lopez ANP POINT OF CARE TESTING Final Result [facility] CLIA# [id number] [address] [employer] [address] [address] from Last 3 Months Insurance ALLEGIANCE OPEN ACCESS Care Teams Property Specialist Relationship Specialty Start Date End Date Cathy Liao MD [address] [place] [address] PCP - General Internal Medicine 04/28/24
--- NOTE | 2024-11-30 12:30 | ED.URI ---
HPI - URI/Sore Throat General Chief Complaint: Upper Respiratory Infection Stated Complaint: ?strep throat Time Seen by Provider: 11/30/24 10:45 History of Present Illness HPI Narrative: Patient is a 24-year-old female who presents to the ER with a 5 day history of sore throat. She also endorses a recent fever with a T-max of 101?. Patient endorses an intermittent cough, nausea and increased phlegm. She reports she was diagnosed with mononucleosis back in February of 2024. Patient reports she is able to swallow liquids and food, she reports it is just uncomfortable and hurts. She endorses a recent history of COVID, genital herpes, and a urinary tract infection. Patient denies any chest pain, shortness of breath, wheezing, abdominal pain, or urinary symptoms. Related Data Home Medications ?Medication ?Instructions ?Recorded ?Confirmed ?Last Taken ?Type Vitamin D3 50,000 units PO WEEKLY 04/15/24 04/16/24 04/10/24 History famotidine 20 mg PO DAILY 04/15/24 04/15/24 Unknown History Allergies Allergy/AdvReac Type Severity Reaction Status Date / Time ondansetron (From Zofran) AdvReac Rash Verified 11/30/24 10:48 Review of Systems Review of Systems: All systems reviewed & are unremarkable except as noted in HPI and below PMFSH Past Medical History Medical History No pertinent past medical history Surgical History Surgical History No pertinent past surgical history Family History Family History Grandparent Breast cancer Diabetes mellitus Father Diabetes mellitus Mother Kidney disease Social History Social History Smoking status: Current every day smoker Tobacco type: e-cigarettes/vaping Alcohol intake: never Substance use: current Substance use type: marijuana Last use: 04/14/2024 Do You Feel Safe in your Home?: Yes Lack of Transportation: No Lack of Food: Never True Current Housing: I Have Housing Concerned About Future Housing: No Difficulty Paying Gas/Electric Bills: No Difficulty Paying for Meds: No Currently Unemployed: No Education: Grade School Difficulty w/ Childcare or Family Care: No Spiritual care concerns: No Exam Narrative: GENERAL: Well appearing, well-nourished, non-toxic, in no acute distress. HEAD: Normocephalic, atraumatic. NECK: Supple. + cervical lymphadenopathy RESPIRATORY: Airway patent, respirations nonlabored. Clear to auscultation bilaterally, no rales, rhonchi, wheezing. CARDIOVASCULAR: Regular rate and rhythm without murmurs, rubs, or gallops. Peripheral pulses 2+ and equal bilaterally. ABDOMINAL: Soft, nontender, nondistended, no hepatosplenomegaly. Normoactive BS. MUSCULOSKELETAL: Moves all extremities. Strength/ROM intact without gross deformities. SKIN: Warm, dry, normal color. No rashes. NEURO: A&O X3. Speech clear. Cranial nerves II-XII intact. No ataxic movements. PSYCHIATRIC: Appropriate mood and affect. Normal interaction. Course Vital Signs Vital signs: Vital Signs Temperature 36.8 C 11/30/24 10:44 Pulse Rate 60 11/30/24 10:44 Respiratory Rate 18 11/30/24 10:44 Blood Pressure 140/83 11/30/24 10:44 Pulse Oximetry 99 11/30/24 10:44 Oxygen Delivery Room Air 11/30/24 10:44 Temperature 36.8 C 11/30/24 10:44 Pulse Rate 61 11/30/24 13:28 Respiratory Rate 18 11/30/24 13:28 Blood Pressure 110/65 11/30/24 13:28 Pulse Oximetry 98 11/30/24 13:28 Oxygen Delivery Room Air 11/30/24 10:44 MDM - URI/Sore Throat MDM Narrative Medical decision making narrative: Patient is a 24-year-old female who presents to the ER with a 5 day history of sore throat. She also endorses a recent fever with a T-max of 101?. Patient endorses an intermittent cough, nausea and increased phlegm. She reports she was diagnosed with mononucleosis back in February of 2024. Patient reports she is able to swallow liquids and food, she reports it is just uncomfortable and hurts. She endorses a recent history of COVID, genital herpes, and a urinary tract infection. Patient denies any chest pain, shortness of breath, wheezing, abdominal pain, or urinary symptoms. Labs Ordered: COVID/flu/RSV, strep swab Imaging Ordered: Chest x-ray Medications Ordered: None necessary Results: Patient's chest x-ray indicates No acute cardiopulmonary pathology. Diagnosis: Upper respiratory infection Patient Education/Shared MDM: Results of lab work and imaging shared with patient. Patient strongly advised to maintain hydration status upon discharge and follow-up with her PCP as soon as possible. She will be discharged home with a prescription for Tessalon Pearles. Strict return precautions provided. Patient verbalized understanding and is in agreement with plan. Vital signs stable at time of discharge. All questions answered. Differential Diagnosis Differential diagnosis: Likely upper respiratory infection, viral infection, bronchitis and influenza Lab Data Attestation: I reviewed the patient's lab results. Labs: Lab Results 11/30/24 11/30/24 Range/Units 10:49 13:02 Influenza A (RT-PCR) Negative (Negative) Influenza B (RT-PCR) Negative (Negative) RSV (RT-PCR) Negative (Negative) SARS-CoV-2 RNA (RT-PCR) Negative (Negative) Group A Strep (PCR) Not detected (Negative) Imaging Data Attestation: I personally reviewed and interpreted this imaging study as follows: Radiologist's impression: Impressions Chest X-Ray 11/30/24 13:19 IMPRESSION: No acute cardiopulmonary pathology. Discharge Plan Discharge Clinical Impression: Upper respiratory infection, Viral infection Patient Disposition: Home Condition: Stable Instructions: Antibiotic Form, Upper Respiratory Infection (DC) Additional Instructions: Please return to the ER with any worsening symptoms. Follow-up with primary care provider as soon as possible. Take all medications as prescribed, including regularly scheduled medications. You may use Tylenol and ibuprofen for pain control. Please drink lots and lots of water. Patient Language: Stateless Prescriptions: New benzonatate 100 mg capsule 100 mg PO TID Qty: 15 0RF No Action albuterol sulfate 90 mcg/actuation HFA aerosol inhaler 2 puff inhalation QID PRN (Reason: shortness of breath or wheezing) Qty: 6.7 0RF Vitamin D3 50,000 Units tablet 50,000 units PO WEEKLY Rx Instructions: TAKE ON MONDAYS famotidine 20 mg tablet 20 mg PO DAILY prednisone 10 mg tablet 10 mg PO DIRECTED Qty: 20 0RF Rx Instructions: see taper instructions 40 mg (4 tabs) x 2 days, then 30 mg (3 tabs) x 2 days, then 20 mg (2 tabs) x 2 days, then 10 mg (1 tab) x 2 days, stop levofloxacin 750 mg tablet 750 mg PO DAILY 5 Days Qty: 5 0RF nitrofurantoin monohyd/m-cryst [Macrobid] 100 mg capsule 100 mg PO Q12H 5 Days Qty: 10 0RF Rx Instructions: must administer with a meal/food acyclovir 400 mg tablet 400 mg PO TID Qty: 30 0RF lidocaine 5 % ointment 1 applic topical QID PRN (Reason: skin irritation) Qty: 50 0RF Follow-up/Referrals: Marvin Culp MD [Physician] - (primary care) UNKNOWN,DOCTOR [Primary Care Provider] - Stand Alone Forms: Work/School Release IP Time of Disposition: 14:25
[2024-11-30 12:42] VITALS: PULSE 62; RESP 16; O2SAT 99
[2024-11-30 12:47] VITALS: BP 147/99
[2024-11-30 13:28] VITALS: BP 110/65; PULSE 61; RESP 18; O2SAT 98
[2024-11-30 13:48] LABS: Influenza A QL RT-PCR Negative (Negative); Influenza B QL RT-PCR Negative (Negative); RSV RNA, RT-PCR Negative (Negative); SARS-CoV-2 RNA PCR Negative (Negative)
[2024-11-30 14:31] VITALS: BP 96/58; PULSE 70; RESP 16; O2SAT 98
== END 2024-11-30 14:32 | disposition home or self-care (01) ==
PROVIDERS: Emergency Provider Registered Nurse
DX: B34.9 Viral infection, unspecified (principal); J06.9 Acute upper respiratory infection, unspecified; Z20.822 Contact with and (suspected) exposure to COVID-19; F17.290 Nicotine dependence, other tobacco product, uncomplicated; Z87.440 Personal history of urinary (tract) infections; Z86.16 Personal history of COVID-19; Z79.899 Other long term (current) drug therapy
CPT/HCPCS: 71046; 87637; 87651; 99283

== ENCOUNTER 2025-03-02 09:12 | Emergency (ER) | payer OTHER, SELFPAY ==
--- OUTSIDE RECORDS SUMMARY | 2025-03-02 09:14 | XMS_ITS | Clinical Summary ---
Author Organization [facility] Jott GRETNA Address [address] [place] [id number] Care Team Providers Care [place] Name Role Phone Cathy Liao MD Primary Care Provider [phone] Allergies Active Allergy Reactions Criticality Noted Date Comments Ondansetron Rash Low 03/02/2024 Red Dye Nausea and Vomiting Low 03/02/2024 Medications cholecalciferol (Vitamin D3) 25 mcg (1,000 unit) Tablet, ChewableIndicatio ns:Vitamin D deficiency Take 3 Tablets (3,000 Units) by mouth daily. 4 Active albuterol sulfate HFA 90 mcg/actuation aerosol inhalerIndication s:Mild intermittent reactive airway disease without complication Take 2 Puffs by inhalation every 6 hours as needed for Shortness of Breath. 8.5 Gram 4 Active lidocaine (XYLOCAINE) 5 % Ointment 5 Active MULTIVITAMIN ORAL Take by mouth. Active escitalopram oxalate (Lexapro) 10 mg tabletIndications :Moderate episode of recurrent major depressive disorder (CMS/HCC) Take 1 Tablet (10 mg) by mouth late in the day. 90 Tablet 5 Active omeprazole (PriLOSEC) 20 mg Tablet, Delayed Release (E.C.)Indications :Nausea Take 1 Tablet (20 mg) by mouth daily before breakfast. Take 15-30 minutes before first food of the day. 90 Tablet 5 Active Active Problems Problem Noted Date Diagnosed Date Nausea 12/14/2024 Moderate episode of recurrent major depressive d isorder 12/14/2024 Morbid obesity with body mass index of 40.0-49.9 04/03/2024 Dyspepsia 04/03/2024 Mild depression 04/03/2024 Vitamin D deficiency 03/06/2024 Amenorrhea 06/20/2019 Acanthosis 06/20/2019 Encounters Date Type Department Care Team Description 02/21/2025 External Device Data [facility] ABSTRACTION Provider, Abstract 02/20/2025 External Device Data [facility] ABSTRACTION Provider, Abstract 01/23/2025 External Device Data [facility] ABSTRACTION Provider, Abstract 01/09/2025 8:30 AM CDT Office Visit [facility] [place] [address] [place] [address] Tiffani Lopez ANP Nausea (Primary Dx); Moderate episode of recurrent major depressive disorder (CMS/HCC) 12/28/2024 External Device Data [facility] ABSTRACTION Provider, Abstract 12/28/2024 External Device Data [facility] ABSTRACTION Provider, Abstract 12/27/2024 External Device Data [facility] ABSTRACTION Provider, Abstract 12/26/2024 External Device Data [facility] ABSTRACTION Provider, Abstract 12/18/2024 Results Follow-Up [facility] [address] [place] [address] Tiffani Lopez, ROXIE VITAMIN D 25 HYDROXY, HEMOGLOBIN A1C, LIPID PANEL, Additional followed-up results: 3 12/14/2024 9:00 AM CDT Office Visit [place] [address] [place] [address] Tiffani Lopez ANP Nausea (Primary Dx); HSV-2 infection - gential.; Moderate episode of recurrent major depressive disorder (CMS/HCC); Vitamin D deficiency; Morbid obesity with body mass index of 40.0-49.9 (CMS/HCC); Financial difficulties from Last 3 Months Immunizations Immunization Administration [...] on file Legal Sex Female 1:16 PM [employer] Gender Identity Not on file Sexual Orientation Not on file Last Filed Vital Signs Vital Sign Reading Time Taken Comments Blood Pressure 122/68 01/09/2025 8:53 AM CDT Pulse 79 01/09/2025 8:53 AM CDT Temperature 37 C (98.6 F) 01/09/2025 8:53 AM CDT Respiratory Rate 16 01/09/2025 8:53 AM CDT Oxygen Saturation 98% 01/09/2025 8:53 AM CDT Inhaled Oxygen Concentration - - Weight 121.1 kg (267 lb) 01/09/2025 8:53 AM CDT Height 162.6 cm (5' 4) 01/09/2025 8:53 AM CDT Body Mass Index 45.83 01/09/2025 8:53 AM CDT Plan of Treatment Upcoming Encounters Date Type Department Care Team (Late st Contact Info) Description 04/12/2025 9:00 AM CDT Office Visit [facility] [employer] [place] [address] [place] [address] Tiffani Lopez, ANP [address] [facility] [address] [place] [address] Health Maintenance Due Date Last Done Comments CHLAMYDIA SCREENING (ANNUAL) 11-24 YEARS 2013 CERVICAL CANCER SCREENING 2023 HPV/Cotest (21-29) 2023 PAP SMEAR 2023 INFLUENZA VACCINE (#1) 2025 04/28/2021, 2015 DTAP/TDAP/TD VACCINES (8 - T d or Tdap) 04/03/2034 04/03/2024, 2013, 03/08/2007, Additional history exists HEPATITIS B VACCINES Completed 01/09/2003, 2002, 2002 HPV VACCINES Completed 05/15/2016, 2013 Procedures Procedure Name Priority Date/Time Associated Diagnosis Comments TSH REFLEXIVE Routine 12/14/2024 9:48 AM CDT Morbid obesity with body mass index of 40.0-49.9 (CMS/HCC) CBC WITH DIFFERENTIAL Routine 12/14/2024 9:48 AM CDT Morbid obesity with body mass index of 40.0-49.9 (CMS/HCC) COMPREHENSIVE METABOLIC PANEL Routine 12/14/2024 9:48 AM CDT Morbid obesity with body mass index of 40.0-49.9 (CMS/HCC) LIPID PANEL Routine 12/14/2024 9:48 AM CDT Morbid obesity with body mass index of 40.0-49.9 (CMS/HCC) HEMOGLOBIN A1C Routine 12/14/2024 9:48 AM CDT Morbid obesity with body mass index of 40.0-49.9 (CMS/HCC) VITAMIN D 25 HYDROXY Routine 12/14/2024 9:48 AM CDT Vitamin D deficiency from Last 3 Months Results * TSH REFLEXIVE (12/14/2024 9:48 AM CDT) TSH 2.17 mIU/L [facility] Comment: Reference Range > or = 20 Years 0.40-4.50 Ranges First trimester 0.26-2.66 Second trimester 0.55-2.73 Third trimester 0.43-2.91 Test Performed at: [facility] [address] [place] [address] Tia Calabrese Blood 12/14/2024 9:48 AM CDT 12/15/2024 2:43 AM CDT us Tiffani Lopez ANP CHEMISTRY ORDERABLES Final R esult [facility] [phone] [facility] [address] [place] [address] * (ABNORMAL) CBC WITH DIFFERENTIAL (12/14/2024 9:48 AM CDT) WBC 7.9 3.8 - 10.8 Thousand/ uL [facility] RBC 5.21(H) 3.80 - 5.10 Million/u L [facility] HEMOGLOBIN 14.6 11.7 - 15.5 g/dL [facility] HEMATOCRIT 45.0 35.0 - 45.0 % [facility] MCV 86.4 80.0 - 100.0 fL [facility] MCH 28.0 27.0 - 33.0 pg [facility] MCHC 32.4 32.0 - 36.0 g/dL [facility] Comment: For adults, a slight decrease in the calculated MCHC value (in the range of 30 to 32 g/dL) is most likely not clinically significant; however, it should be interpreted with caution in correlation with other red cell parameters and the patient's clinical condition. RDW 12.8 11.0 - 15.0 % [facility] PLATELETS 343 140 - 400 Thousand/ uL [facility] MPV 9.6 7.5 - 12.5 fL [facility] NEUTROPHIL ABSOLUTE 5,080 1,500 - 7,800 cells/uL [facility] LYMPHOCYTE ABSOLUTE 1,880 850 - 3,900 cells/uL [facility] MONOCYTE ABSOLUTE 498 200 - 950 cells/uL [facility] EOSINOPHIL ABSOLUTE 371 15 - 500 cells/uL [facility] BASOPHILS ABSOLUTE 71 0 - 200 cells/uL [facility] NEUTROPHIL 64.3 % [facility] LYMPHOCYTES 23.8 % [facility] MONOCYTE 6.3 % [facility] EOSINOPHILS 4.7 % [facility] BASOPHILS 0.9 % [facility] Comment: Test Performed at: [facility] [address] [place] [address] Tia Calabrese Blood 12/14/2024 9:48 AM CDT 12/15/2024 2:43 AM CDT Tiffani Lopez ANP HEMATOLOGY ORDERABLES Final Result [facility] [phone] [facility] [address] [place] [address] * (ABNORMAL) VITAMIN D 25 HYDROXY (12/14/2024 9:48 AM CDT) VITAMIN D, 25 OH, TOTAL 25(L) 30 - 100 ng/mL [facility] Comment: Vitamin D Status 25-OH Vitamin D: Deficiency: <20 ng/mL Insufficiency: 20 - 29 ng/mL Optimal: > or = 30 ng/mL For 25-OH Vitamin D testing on patients on D2-supplementation and patients for whom quantitation of D2 and D3 fractions is required, the [facility]TM) 25-OH VIT D, (D2,D3), LC/MS/MS is recommended: order code 40784 (patients >2yrs). See Note 1 Note 1 For additional information, please refer to http://education.Unsilo/faq/FAK342 (This link is being provided for informational/ educational purposes only.) Test Performed at: [facility] [address] [place] [address] Tia Calabrese MD Blood 12/14/2024 9:48 AM CDT 12/15/2024 2:44 AM CDT Tiffani Lopez ANP CHEMISTRY ORDERABLES Final R esult Performing Organization Address City/State/ZIP [place] Phone Number [facility] [phone] [facility] [address] [place] [address] * HEMOGLOBIN A1C (12/14/2024 9:48 AM CDT) HEMOGLOBIN A1C 5.3 <5.7 % of total Hgb [facility] Comment: For the purpose of screening for the presence of diabetes: <5.7% Consistent with the absence of diabetes 5.7-6.4% Consistent with increased risk for diabetes (prediabetes) > or =6.5% Consistent with diabetes This assay result is consistent with a decreased risk of diabetes. Currently, no consensus exists regarding use of hemoglobin A1c for diagnosis of diabetes in children. According to [place] Diabetes Association (ADA) guidelines, hemoglobin A1c <7.0% represents optimal control in non- diabetic patients. Different metrics may apply to specific patient populations. Standards of Medical Care in Diabetes(ADA). ESTIMATED AVERAGE GLUCOSE (MG/DL) 105 mg/dL [facility] Regan ESTIMATED AVERAGE GLUCOSE (MMOL/L) 5.8 mmol/L [facility] Comment: Test Performed at: [facility] [address] [place] [address] Tia Calabrese Blood 12/14/2024 9:48 AM CDT 12/15/2024 2:43 AM CDT Tiffani Lopez [facility] CHEMISTRY ORDERABLES Final R esult [facility] [phone] [facility] [address] [place] [address] * (ABNORMAL) LIPID PANEL (12/14/2024 9:48 AM CDT) CHOLESTEROL 207(H) <200 mg/dL [facility] HDL 53 > OR = 50 mg/dL [facility] TRIGLYCERIDE 136 <150 mg/dL [facility] LDL CALCULATED 129(H) mg/dL (calc) [facility] Comment: Reference range: <100 Desirable range <100 mg/dL for primary prevention; <70 mg/dL for patients with CHD or diabetic patients with > or = 2 CHD risk factors. LDL-C is now calculated using the Rosalino calculation, which is a validated novel method providing better accuracy than the Friedewald equation in the estimation of LDL-C. Forest GOODMAN et al. MAGDI. 2013;310(19): 0182-8414 (http://education.Allegorithmic.9DIAMOND/faq/KLP683) CHOL/HDL RATIO 3.9 <5.0 (calc) [facility] NON-HDL CHOLESTEROL 154(H) <130 mg/dL (calc) [facility] Comment: For patients with diabetes plus 1 major ASCVD risk factor, treating to a non-HDL-C goal of <100 mg/dL (LDL-C of <70 mg/dL) is considered a therapeutic option. Test Performed at: [facility] [address] [place] [address] Tia Calabrese Blood 12/14/2024 9:48 AM CDT 12/15/2024 2:43 AM CDT us Tiffani Lopez [facility] CHEMISTRY ORDERABLES Final R esult [facility] [phone] [facility] [address] [place] [address] * COMPREHENSIVE METABOLIC PANEL (12/14/2024 9:48 AM CDT) GLUCOSE 86 65 - 99 mg/dL [facility] Regan Comment: Fasting reference interval BUN 14 7 - 25 mg/dL [facility] Regan CREATININE 0.73 0.50 - 0.96 mg/dL [facility] Regan GFR 119 > OR = 60 mL/min/1. 73m2 [facility] judy Regan BUN/CREAT RATIO SEE NOTE: 6 - 22 (calc) [facility] Comment: Not Reported: BUN and Creatinine are within reference range. SODIUM 139 135 - 146 mmol/L [facility] Regan POTASSIUM 4.6 3.5 - 5.3 mmol/L [facility] jud[facility] Regan CHLORIDE 102 98 - 110 mmol/L [facility] Regan CO2 27 20 - 32 mmol/L [facility] Regan CALCIUM 9.4 8.6 - 10.2 mg/dL [facility] jud[facility] Regan TOTAL PROTEIN 7.2 6.1 - 8.1 g/dL [facility] Regan ALBUMIN 4.2 3.6 - 5.1 g/dL [facility] judy Regan GLOBULIN 3.0 1.9 - 3.7 g/dL (calc) [facility] ALBUMIN/GLOBULIN RATIO 1.4 1.0 - 2.5 (calc) [facility] Regan BILIRUBIN TOTAL 0.7 0.2 - 1.2 mg/dL [facility] judy Regan ALKALINE PHOSPHATASE 83 31 - 125 U/L [facility] Reg[facility] AST 17 10 - 30 U/L [facility] ALT 25 6 - 29 U/L [facility] judy Regan Comment: Test Performed at: [place] [address] [place] [address] AbigailJose Rafael Stephens Vo Blood 12/14/2024 9:48 AM CDT 12/15/2024 2:43 AM CDT us Tiffani Lopez [facility] CHEMISTRY ORDERABLES Final R esult [facility] [phone] [place] [address] [place] [address] from Last 3 Months Insurance [employer] OPEN ACCESS Care Teams [place] Relationship Specialty Start Date End Date Cathy Liao MD [address] [place] [phone] PCP - General Internal Medicine 04/28/24
[2025-03-02 09:19] VITALS: BP 158/87; PULSE 73; RESP 18; TEMP 36.4; O2SAT 98
--- NOTE | 2025-03-02 09:28 | ED.RECABL ---
HPI - Recheck/Abnormal Lab/Rx General Chief Complaint: Recheck/Abnormal Lab/Rx Stated Complaint: stuck with used needle at work Time Seen by Provider: 03/02/25 09:20 History of Present Illness HPI narrative: Patient is a 24-year-old female who presents to the ER after being stuck with a needle while at work. 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 Patient reports she stuck herself with a residents diabetic needle in her right palm. She reports the site started bleeding immediately. Patient washed her hands with soap and water. She reports she is up-to-date on her immunizations. Patient reports the senior care is testing the patient's blood and the needle. She denies any other pertinent medical history relevant to this ER visit. Patient denies any chest pain, shortness a breath, significant hand pain, or decreased range of motion. Related Data Home Medications ?Medication ?Instructions ?Recorded ?Confirmed ?Last Taken ?Type famotidine 20 mg PO DAILY 04/15/24 03/02/25 03/02/25 History calcium phosphate,dibasic 77 tablet PO 03/02/25 03/02/25 History mg-vitamin D3 400 unit tablet Allergies Allergy/AdvReac Type Severity Reaction Status Date / Time ondansetron (From Zofran) AdvReac Rash Verified 03/02/25 09:22 Review of Systems Review of Systems: All systems reviewed & are unremarkable except as noted in HPI and below [facility] Past Medical History Medical History No pertinent past medical history Surgical History Surgical History No pertinent past surgical history Family History Family History Grandparent Breast cancer Diabetes mellitus Father Diabetes mellitus Mother Kidney disease Social History Social History Smoking status: Current every day smoker Tobacco type: e-cigarettes/vaping Alcohol intake: never Substance use: current Substance use type: marijuana Last use: 04/14/2024 Do You Feel Safe in your Home?: Yes Lack of Transportation: No Lack of Food: Never True Current Housing: I Have Housing Concerned About Future Housing: No Difficulty Paying Gas/Electric Bills: No Difficulty Paying for Meds: No Currently Unemployed: No Education: Grade School Difficulty w/ Childcare or Family Care: No Spiritual care concerns: No Exam Narrative: GENERAL: Well appearing, obese, non-toxic, in no acute distress. HEAD: Normocephalic, atraumatic. NECK: Supple. No adenopathy, no masses. RESPIRATORY: Airway patent, respirations nonlabored. Clear to auscultation bilaterally, no rales, rhonchi, wheezing. CARDIOVASCULAR: Regular rate and rhythm without murmurs, rubs, or gallops. Peripheral pulses 2+ and equal bilaterally. ABDOMINAL: Soft, nontender, nondistended, no hepatosplenomegaly. Normoactive BS. MUSCULOSKELETAL: Moves all extremities. Strength/ROM intact without gross deformities. SKIN: Warm, dry, normal color. No rashes. R hand puncture chase on palm, no visible bleeding NEURO: A&O X3. Speech clear. Cranial nerves II-XII intact. No ataxic movements. PSYCHIATRIC: Appropriate mood and affect. Normal interaction. Course Vital Signs Vital signs: Vital Signs Temperature 36.4 C 03/02/25 09:19 Pulse Rate 73 03/02/25 09:19 Respiratory Rate 18 03/02/25 09:19 Blood Pressure 158/87 H 03/02/25 09:19 Pulse Oximetry 98 03/02/25 09:19 Oxygen Delivery Room Air 03/02/25 09:19 Temperature 36.4 C 03/02/25 09:19 Pulse Rate 73 03/02/25 09:19 Respiratory Rate 18 03/02/25 09:19 Blood Pressure 158/87 H 03/02/25 09:19 Pulse Oximetry 98 03/02/25 09:19 Oxygen Delivery Room Air 03/02/25 09:19 MDM - Recheck/Abnormal Lab/Rx MDM Narrative Medical decision making narrative: Patient is a 24-year-old female who presents to the ER after being stuck with a needle while at work. 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 Patient reports she stuck herself with a residents diabetic needle in her right palm. She reports the site started bleeding immediately. Patient washed her hands with soap and water. She reports she is up-to-date on her immunizations. Patient reports the senior care is testing the patient's blood and the needle. She denies any other pertinent medical history relevant to this ER visit. Patient denies any chest pain, shortness a breath, significant hand pain, or decreased range of motion. Labs Ordered: Hep C antibody, hep B antibody, HIV Imaging Ordered: None necessary Medications Ordered: None necessary Results: Pt's HIV tests is negative. Diagnosis: Needlestick at work Patient Education/Shared MDM: Results of lab work shared with patient. Risks and benefits of PREP administration discussed with pt. She declined to proceed forward with retroviral administration at this time. She continues to deny pain at time of re-examination. Patient strongly advised to follow-up with her place of employment as soon as possible. She will not be discharged home with any new prescriptions. Strict return precautions provided. Patient verbalized understanding and is in agreement with plan. Vital signs stable at time of discharge. All questions answered. Differential Diagnosis Differential diagnosis: Likely other (Needlestick, puncture wound, transmission of blood borne pathogen) Lab Data Attestation: I reviewed the patient's lab results. Labs: Lab Results 03/02/25 Range/Units 09:44 Hep Bs Antibody Pending Hepatitis C Ab Screen Pending HIV 1&2 Ab/P24 Ag 4thGn Negative (Negative) Discharge Plan Discharge Clinical Impression: Needle stick injury of hand, At increased risk for exposure to hepatitis B virus, At high risk for exposure to HIV Patient Disposition: Home Condition: Stable Instructions: Antibiotic Form Additional Instructions: Please return to the ER with any worsening symptoms. Follow-up with your occupational health department at work for further direction. Take all medications as prescribed, including regularly scheduled medications. Patient Language: Japanese Prescriptions: No Action famotidine 20 mg tablet 20 mg PO DAILY calcium phos,dibas-vitamin D3 77-400 mg-unit tablet PO Follow-up/Referrals: UNKNOWN,DOCTOR [Primary Care Provider] - Stand Alone Forms: Work/School Release IP Time of Disposition: 12:27
--- OUTSIDE RECORDS SUMMARY | 2025-03-02 09:43 | XMS_ITS | Clinical Summary ---
Author Organization [facility] [employer] Address [address] [place] [id number] Care Team Providers Care Co Pilot Name Role Phone Cathy Liao MD Primary [...] Abstract 01/09/2025 8:30 AM CDT Office Visit [facility] [place] [address] [place] [address] Tiffani Lopez ANP Nausea (Primary Dx); Moderate episode of recurrent major depressive disorder (CMS/HCC) 12/28/2024 External Device Data STL ABSTRACTION Provider, Abstract 12/28/2024 External Device Data STL ABSTRACTION Provider, Abstract 12/27/2024 External Device Data STL ABSTRACTION Provider, Abstract 12/26/2024 External Device Data STL ABSTRACTION Provider, Abstract 12/18/2024 Results Follow-Up [facility] [address] [place] [address] Tiffani Lopez, ROXIE VITAMIN D 25 HYDROXY, HEMOGLOBIN A1C, LIPID PANEL, Additional followed-up results: 3 12/14/2024 9:00 AM CDT Office Visit [place] [address] [place] [address] Tiffani Lopez ANP Nausea (Primary Dx); HSV-2 [...] on file 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 Gender Identity Not on file Sexual Orientation [...] Description 04/12/2025 9:00 AM CDT Office Visit [facility] [place] [address] [place] [address] Tiffani Lopez, ANP [address] [facility] [address] [place] [address] Health Maintenance Due Date Last [...] (12/14/2024 9:48 AM CDT) TSH 2.17 mIU/L [email or web address] Comment: Reference Range > or = 20 Years 0.40-4.50 Ranges First trimester 0.26-2.66 Second trimester 0.55-2.73 Third trimester 0.43-2.91 Test Performed at: [email or web address] [address] [place] [address] Tia Calabrese Blood 12/14/2024 9:48 AM CDT 12/15/2024 2:43 AM CDT us Tiffani Lopez ANP CHEMISTRY ORDERABLES Final R esult [facility] [phone] [email or web address] [address] [place] [address] * (ABNORMAL) CBC WITH DIFFERENTIAL (12/14/2024 9:48 [...] Diagnostics-S t [facility] Comment: Test Performed at: [email or web address] [address] [place] [address] Tia Calabrese Blood 12/14/2024 9:48 AM CDT 12/15/2024 2:43 AM CDT Tiffani Lopez ANP HEMATOLOGY ORDERABLES Final Result [facility] [phone] [email or web address] [address] [place] [address] * (ABNORMAL) VITAMIN D 25 HYDROXY (12/14/2024 9:48 AM CDT) VITAMIN D, 25 OH, TOTAL 25(L) 30 - 100 ng/mL [email or web address] Comment: Vitamin D Status 25-OH Vitamin D: Deficiency: <20 ng/mL Insufficiency: 20 - 29 ng/mL Optimal: > or = 30 ng/mL For 25-OH Vitamin D testing on patients on D2-supplementation and patients for whom quantitation of D2 and D3 fractions is required, the QuestAssureD(TM) 25-OH VIT D, (D2,D3), LC/MS/MS is recommended: order code 23316 (patients >2yrs). See Note 1 Note 1 For additional information, please refer to http://education.[employer]/faq/VIL522 (This link is being provided for informational/ educational purposes only.) Test Performed at: [facility] [address] [place] [address] Tia Calabrese MD Blood 12/14/2024 9:48 AM CDT 12/15/2024 2:44 AM CDT Tiffani Lopez ANP CHEMISTRY ORDERABLES Final R esult Performing Organization Address City/State/ZIP Co nc Phone Number [facility] [phone] [email or web address] [address] [place] [address] * HEMOGLOBIN A1C (12/14/2024 9:48 AM CDT) HEMOGLOBIN A1C 5.3 <5.7 % of total Hgb [email or web address] Comment: For the purpose of screening for the presence of diabetes: <5.7% Consistent with the absence of diabetes 5.7-6.4% Consistent with increased risk for diabetes (prediabetes) > or =6.5% Consistent with diabetes This assay result is consistent with a decreased risk of diabetes. Currently, no consensus exists regarding use of hemoglobin A1c for diagnosis of diabetes in children. According to [place] Diabetes Association (ADA) guidelines, hemoglobin A1c <7.0% represents optimal control in non- diabetic patients. Different metrics may apply to specific patient populations. Standards of Medical Care in Diabetes(ADA). ESTIMATED AVERAGE GLUCOSE (MG/DL) 105 mg/dL [facility] [employer] judy Regan ESTIMATED AVERAGE GLUCOSE (MMOL/L) 5.8 mmol/L [email or web address] Comment: Test Performed at: [email or web address] [address] [place] [address] Tia Calabrese Blood 12/14/2024 9:48 AM CDT 12/15/2024 2:43 AM CDT [facility] CHEMISTRY ORDERABLES Final R esult [facility] [phone] [email or web address] [place] [address] [place] [address] * (ABNORMAL) LIPID PANEL (12/14/2024 9:48 AM CDT) CHOLESTEROL 207(H) <200 mg/dL [facility] HDL 53 > OR = 50 mg/dL [email or web address] TRIGLYCERIDE 136 <150 mg/dL [facility] LDL CALCULATED 129(H) mg/dL (calc) [email or web address] Comment: Reference range: <100 Desirable range <100 mg/dL for primary prevention; <70 mg/dL for patients with CHD or diabetic patients with > or = 2 CHD risk factors. LDL-C is now calculated using the Rosalino calculation, which is a validated novel method providing better accuracy than the Friedewald equation in the estimation of LDL-C. Forest GOODMAN et al. MAGDI. 2013;310(19): 9738-9050 (http://education.[employer].Riskonnect/faq/BFE518) CHOL/HDL RATIO 3.9 <5.0 (calc) Zaya[facility] Regan NON-HDL CHOLESTEROL 154(H) <130 mg/dL (calc) [facility] Comment: For patients with diabetes plus 1 major ASCVD risk factor, treating to a non-HDL-C goal of <100 mg/dL (LDL-C of <70 mg/dL) is considered a therapeutic option. Test Performed at: [email or web address] [address] [place] [address] Tia Calabrese Blood 12/14/2024 9:48 AM CDT 12/15/2024 2:43 AM CDT us [facility] CHEMISTRY ORDERABLES Final R esult [facility] [phone] [email or web address] [place] [address] [place] [address] * COMPREHENSIVE METABOLIC PANEL (12/14/2024 9:48 AM CDT) GLUCOSE 86 65 - 99 mg/dL [facility] jud[facility] Regan Comment: Fasting reference interval BUN 14 7 - 25 mg/dL [facility] Regan CREATININE 0.73 0.50 - 0.96 mg/dL [facility] jud[facility] Regan GFR 119 > OR = 60 mL/min/1. 73m2 [facility] jud[facility] Regan BUN/CREAT RATIO SEE NOTE: 6 - 22 (calc) [facility] Comment: Not Reported: BUN and Creatinine are within reference range. SODIUM 139 135 - 146 mmol/L [facility] jud[facility] Regan POTASSIUM 4.6 3.5 - 5.3 mmol/L [facility] CHLORIDE 102 98 - 110 mmol/L [facility] judy Regan CO2 27 20 - 32 mmol/L [facility] jud[facility] Regan CALCIUM 9.4 8.6 - 10.2 mg/dL [facility] jud[facility] Regan TOTAL PROTEIN 7.2 6.1 - 8.1 g/dL [facility]an ALBUMIN 4.2 3.6 - 5.1 g/dL [facility] judy Regan GLOBULIN 3.0 1.9 - 3.7 g/dL (calc) ZayaJose Regan ALBUMIN/GLOBULIN RATIO 1.4 1.0 - 2.5 (calc) [facility] judy Regan BILIRUBIN TOTAL 0.7 0.2 - 1.2 mg/dL [facility] judy Regan ALKALINE PHOSPHATASE 83 31 - 125 U/L [facility] Regan AST 17 10 - 30 U/L [facility] judy Regan ALT 25 6 - 29 U/L [facility] judy Regan Comment: Test Performed at: [place] [address] [place] [address] AbigailJose Rafael Stephens Vo Blood 12/14/2024 9:48 AM CDT 12/15/2024 2:43 AM CDT us Tiff[facility] Lopez [facility] CHEMISTRY ORDERABLES Final R esult [facility] [phone] [place] [address] [place] [address] from Last 3 Months Insurance [employer] Care Teams Co Pilot Relationship Specialty Start Date End Date Cathy Liao MD [address] [place] [place] [phone] PCP - General Internal Medicine 04/28/24
[2025-03-02 10:53] LABS: HIV 1/2 Ab P24 Ag Result Negative (Negative)
[2025-03-02 13:14] VITALS: BP 128/80; PULSE 80; RESP 18; TEMP 36.6; O2SAT 97
[2025-03-02 16:50] LABS: Hepatitis B Surface Anti Res Negative
== END 2025-03-02 13:15 | disposition home or self-care (01) ==
PROVIDERS: Emergency Provider Registered Nurse
DX: S61.431A Puncture wound without foreign body of right hand, initial encounter (principal); W46.1XXA Contact with contaminated hypodermic needle, initial encounter; F17.290 Nicotine dependence, other tobacco product, uncomplicated
CPT/HCPCS: 36415; 86703; 86706; 86803; 99283; G0432